=== PATIENT | female | born 1950 | race Caucasian/White ===

== ENCOUNTER 2024-05-11 11:00 | Inpatient (IN) | payer MEDICARE, SELFPAY ==
[2024-05-11] VITALS (21 sets, daily range): BP systolic 121–143; BP diastolic 53–112; PULSE 83–145; RESP 15–23; TEMP 36.4–36.6; O2SAT 96–100; BMI 28.4
--- NOTE | ~2024-05-11 | US_ITS ---
EXAMINATION: US thyroid DATE: 05/12/2024 19:01 INDICATION: Multinodular goiter. TECHNIQUE: Multiple ultrasound images of the thyroid were obtained. COMPARISON: Cervical spine CT 05/11/2024 FINDINGS: The right thyroid lobe measures 4.1 x 2.0 x 1.9 cm. The left thyroid lobe measures 3.7 x 1.6 x 1.9 c m. In the right thyroid lobe, there is a 19 mm solid, hypoechoic, wider than tall nodule with ill-de fined margin without echogenic foci (TI-RADS TR4). In the left thyroid lobe, there is a 3 mm nodule. IMPRESSION: 1. Multinodular goiter. The portion of the goiter in the mediastinum seen on CT is not visible by ult rasound. Consider ultrasound-guided fine-needle aspiration of the 19 mm right thyroid nodule. Reviewed, dictated and finalized at location B. IMPRESSION: 1. Multinodular goiter. The portion of the goiter in the mediastinum seen on CT is not visible by ultrasound. Consider ultrasound-guided fine-needle aspiratio n of the 19 mm right thyroid nodule.
--- NOTE | ~2024-05-11 | CT_ITS ---
EXAMINATION: CT cervical spine wo con DATE: 05/11/2024 12:03 INDICATION: Neck injury. Fall. TECHNIQUE: Computed tomography (CT) of the cervical spine was performed without intravenous contrast. Automated exposure control and iterative reconstruction technique were employed. The dose-length pro duct was 265.07 mGy-cm. COMPARISON: None FINDINGS: There is a multinodular goiter extending into the superior mediastinum. There is 4 degrees dextrocurvature of cervical spine. Vertebral body heights are normal. There is severely decreased dis c height at C5-C6 and moderately decreased disc height at C6-C7 and C7-T1. The following disc levels are specifically discussed: C2-C3: There is mild bilateral uncovertebral joint osteoarthritis. There is mild bilateral facet join t osteoarthritis. There is no neural foraminal stenosis. There is no central canal stenosis. C3-C4: There is mild right and moderate left uncovertebral joint osteoarthritis. There is mild bilate ral facet joint osteoarthritis. There is mild left neural foraminal stenosis. There is mild central c anal stenosis. C4-C5: There is no uncovertebral joint osteoarthritis. There is no facet joint osteoarthritis. There is no neural foraminal stenosis. There is no central canal stenosis. C5-C6: There is moderate right and severe left uncovertebral joint osteoarthritis. There is mild bila teral facet joint osteoarthritis. There is mild left neural foraminal stenosis. There is mild central canal stenosis. C6-C7: There is severe bilateral uncovertebral joint osteoarthritis. There is mild right and severe l eft facet joint osteoarthritis. There is mild left neural foraminal stenosis. There is mild central c anal stenosis. C7-T1: There is no uncovertebral joint osteoarthritis. There is severe bilateral facet joint osteoart hritis. There is no neural foraminal stenosis. There is no central canal stenosis. IMPRESSION: 1. No fracture. 2. Severe cervical spondylosis. 3. Multinodular goiter extending into the mediastinum. Reviewed, dictated and finalized at location A. UREMENT SPECIALIST
--- NOTE | ~2024-05-11 | CT_ITS ---
CT head without contrast Indication: Status post fall, head injury COMPARISON: 05/11/2024 Technique: Serial scans were obtained through the brain without the administration of contrast. Dose reduction technique was used on this scan by utilizing automated exposure control and iterative recon struction technique. The dose-length product (DLP) was 605.33 mGy-cm. Findings: There is no evidence of intracranial hemorrhage, mass lesion, or acute infarct. The ventri cles and subarachnoid spaces are dilated, consistent with mild to moderate atrophy. Low attenuation regions are seen within the periventricular white matter bilaterally, likely representing changes fro m chronic microvascular ischemic disease. There is no evidence of edema, mass effect or midline shif t. The visualized paranasal sinuses and mastoid air cells are clear. Impression: No intracranial hemorrhage, mass, or acute infarct. Atrophy and chronic white matter changes, as above. Reviewed, dictated and finalized at location . Impression: No intracranial hemorrhage, mass, or acute infarct. Atrophy and chronic white matter changes, as above.
--- NOTE | ~2024-05-11 | XR_ITS ---
EXAMINATION: XR chest 1V portable DATE: 05/11/2024 11:37 INDICATION: Weakness. TECHNIQUE: A single frontal view of the chest was obtained. COMPARISON: None. FINDINGS: There is no pneumonia, pleural effusion, or pneumothorax. The heart size is normal. There i s widening of the superior mediastinum. Surgical clips in the right upper quadrant are likely from ch olecystectomy. IMPRESSION: 1. Widening of the superior mediastinum, which may be seen with lipomatosis or a tortuous aorta. Aggie gnancy is not excluded. Chest CT is recommended if this area is not included on the pending cervical spine CT. Reviewed, dictated and finalized at location A. UCTION PLANNER SCHEDULER IMPRESSION: 1. Widening of the superior mediastinum, which may be seen with lipomatosis or a tortuous aorta. Malignancy is not excluded. Chest CT is recommended if this a kristin is not included on the pending cervical spine CT.
--- NOTE | ~2024-05-11 | CT_ITS ---
EXAMINATION: CT brain wo con DATE: 05/11/2024 12:04 INDICATION: Confusion. TECHNIQUE: Computed tomography (CT) of the head was performed without intravenous contrast. The mA wa s adjusted according to patient size. Iterative reconstruction technique was employed. The dose-lengt h product was 605.33 mGy-cm. COMPARISON: None FINDINGS: There are scattered areas of low attenuation in the cerebral white matter, which is within normal limits for the patient's age. There is no intracranial hemorrhage, acute infarction, or abnorm al intracranial mass lesion. The ventricles are normal in size. There is mild mucosal thickening in t he paranasal sinuses. There are likely changes of ocular lens replacement surgeries. The mastoid air cells are normal. IMPRESSION: 1. Normal aging brain. Reviewed, dictated and finalized at location A. SPERSON SHOES IMPRESSION: 1. Normal aging brain.
--- NOTE | ~2024-05-11 | CT_ITS ---
CLINICAL INDICATION: Tachypnea and acidosis COMPARISON: 05/11/2024. TECHNIQUE: Multiple contiguous axial images of the chest, abdomen and pelvis were performed without t he administration of intravenous contrast The dose-length product (DLP) was 1560.51 mGy-cm. Automated exposure control and iterative reconstruction technique were employed. FINDINGS/OBSERVATIONS: Redemonstration of abnormal retrosternal thyroid gland. Significant volume loss within the bilateral lung blair. Small right-sided pleural effusion is now identified. Persistent elevation of the right hemidiaphragm. Free fluid is identified surrounding the liver, an interval change from prior. In addition to free fluid, there is also a copious amount of free air within the anterior portion of the abdomen, extending into the pelvis as well as within the mesentery. No free air is identified wit hin the superior mesenteric vein, portal vein or liver. Free fluid within the abdomen extending along the right paracolic gutter and into the right hemipelvi s. Inflammatory change is identified within the duodenum with fatty atrophy of the pancreas, unchanged f rom prior. No significant retroperitoneal air is identified, or air within the lesser sac. However, there is moderate inflammatory change surrounding the mesentery of the proximal jejunum, jus t beyond the ligament of Treitz and extending towards the anterior abdominal wall with adjacent free air, possibly the source of perforation. Distal small bowel is decompressed. Fecal stasis within the colon extending into the rectum without significant inflammatory change. Redemonstration of multiple nonobstructing renal calculi. The inferior vena cava is slit like consistent with severe hypovolemia. IMPRESSION: Free air and free fluid within the abdomen and pelvis, for which an enteric perforation is suspected (as detailed above). Additional findings consistent with severe hypovolemia. These findings were discussed with Dr. Diaz at 5: 20 PM on 05/13/2024. Reviewed, dictated and finalized at location A. IMPRESSION: Free air and free fluid within the abdomen and pelvis, for which an enteric per foration is suspected (as detailed above). Additional findings consistent with severe hypovolemia. These findings were discussed with Dr. Diaz at 5: 20 PM on 05/13/2024.
--- NOTE | ~2024-05-11 | XR_ITS ---
AP view of the pelvis and AP and lateral views of the bilateral hips Clinical history: Pain Findings: There is an acute intertrochanteric fracture of the proximal right femur with increased luis us reticulation the major distal fracture fragment. No left hip fracture seen. There is advanced dege nerative change of the right hip joint. There is minimal degenerative change of the left hip joint. S oft tissues are unremarkable. Impression: Acute intertrochanteric fracture of the proximal right femur, as detailed above. Advanced degenerative change of the right hip joint. Reviewed, dictated and finalized at location M. Impression: Acute intertrochanteric fracture of the proximal right femur, as detailed above . Advanced degenerative change of the right hip joint.
--- NOTE | ~2024-05-11 | XR_ITS ---
EXAMINATION: XR chest port-a-cath/central Exam Date/Time: 05/13/2024 18:00 CDT HISTORY: central line placement Comparison: Same date at 6:03 PM; CT cap 05/13/2024. FINDINGS/IMPRESSION: New left subclavian central line terminating at the confluence of the brachiocephalic vein and SVC. No other significant interval change. Endotracheal tube remains low lying, terminating 2.2 cm above the le. Reviewed, dictated and finalized at location K.
--- NOTE | ~2024-05-11 | XR_ITS ---
EXAMINATION: XR chest ET placement Exam Date/Time: 05/13/2024 18:15 CDT HISTORY: intubation Comparison: Same date at 3:35 PM. RESULT: Lines, tubes, and devices: New endotracheal tube, terminating 1.5 cm above the le. Lungs and pleura: Low volumes, otherwise clear. Cardiomediastinal silhouette: Stable. Other: No acute osseous or upper abdominal finding. IMPRESSION: Endotracheal tube terminates 1.5 cm above the le, consider retraction. Reviewed, dictated and finalized at location K.
--- NOTE | ~2024-05-11 | CT_ITS ---
EXAMINATION: CT chest abdomen pelvis wo con DATE: 05/11/2024 12:04 INDICATION: Chest and abdominal injury. Fall. Abnormal chest radiograph. TECHNIQUE: Computed tomography (CT) of the chest, abdomen, and pelvis was performed without intraveno us contrast. Automated exposure control and iterative reconstruction technique were employed. The dos e-length product was 1227.54 mGy-cm. COMPARISON: CT abdomen and pelvis 05/04/2024 FINDINGS: CHEST CT: The lungs demonstrate mild atelectasis. There is a 4 mm nodule in right lower lobe, likely benign. Th ere is a 3 mm nodule left upper lobe, likely benign. No pleural effusion. There is a multinodular goi ter extending into the mediastinum with largest nodule measuring 3.4 cm. The heart size is normal. Th ere are coronary artery calcifications. No pericardial effusion. There are old healed right rib fract ures. There is severe cervical and thoracic spondylosis. ABDOMEN/PELVIS CT: The liver is normal. There are changes of cholecystectomy. Calcifications in the spleen are consisten t with old granulomatous disease. The pancreas and adrenal glands are normal. There are least 8 stone s in the right kidney and right renal pelvis measuring up to 13 mm. There is a 3.8 cm cyst in left ki dney. There is a 4 mm stone in left kidney. There is an umbilical hernia containing fat. There is a F oley catheter in expected position. There are no dilated loops of bowel. The appendix is normal. Ther e are no dilated loops of bowel. There are no pathologically enlarged lymph nodes. There is no free i ntraperitoneal fluid. There is subcutaneous fat stranding posterior to the proximal femora, consisten t with inflammation. There is severe lumbar spondylosis. IMPRESSION: 1. Multinodular goiter extending into the mediastinum correlating with the chest radiograph abnormali ty. 2. Bilateral nonobstructing kidney stones. Reviewed, dictated and finalized at location A. AGE BABYSITTER IMPRESSION: 1. Multinodular goiter extending into the mediastinum correlating with the ches t radiograph abnormality. 2. Bilateral nonobstructing kidney stones.
--- NOTE | ~2024-05-11 | XR_ITS ---
EXAMINATION: XR chest 1V portable Exam Date/Time: 05/13/2024 15:35 CDT HISTORY: INCREASED SOB Comparison: 05/11/2024. RESULT: Lines, tubes, and devices: None. Lungs and pleura: Increased volume loss in the right lung with right hemidiaphragm elevation and bib asilar linear opacities. The left lung is clear. Cardiomediastinal silhouette: Stable widening and increased upper mediastinal density previously det ermined to be related to thyroid goiter. Other: No acute osseous or upper abdominal finding. IMPRESSION: Right lung volume loss and basilar atelectasis. Reviewed, dictated and finalized at location K.
--- NOTE | 2024-05-11 11:12 | ECG_ITS ---
Test Date: 2024-05-11 11:28:[address] Rate: 142 P: 46 NV: 141 QRS: -37 QRSD: 71 T: 81 QT: 280 QTc: 431 Interpretive Statements SINUS TACHYCARDIA WITH OCCASIONAL VENTRICULAR PREMATURE COMPLEXES, MARKED LEFT AXIS DEVIATION [QRS AXIS < -30] PATTERN CONSISTENT WITH PULMONARY DISEASE MINIMAL ST DEPRESSION [0.025+ mV ST DEPRESSION] ABNORMAL ECG No previous ECG available for comparison Electronically Signed On 05-11-2024 15:59:20 [employer] by Kenn George M.D.
[2024-05-11 11:21] LABS: Glucose Point of Care 212 mg/dl (65-105)
--- OUTSIDE RECORDS SUMMARY | 2024-05-11 11:24 | XMS_ITS | Referral Summary ---
Author Organization [facility] Address [address] [place] [address] Care Team Providers Care Quality Consultant Name Role Phone Javi Arce MD Primary Care Provider Allergies Active Allergy Reactions Criticality Noted Date Comments Acetaminophen Meloxicam Other (See comments) Low 03/14/2017 ulcers Propoxyphene Sulfa (Sulfonamide Antibiotics) Rash Medium 11/05 Medications phenylephrine (SUDAFED PE) 10 mg tablet take 1 at bedtime 0 0 5 Active blood glucose diagnostic (FREESTYLE INSULINX TEST STRIPS) strip use to check sugars once a day 50 strip 6 5 Active aspirin (ENTERIC COATED ASPIRIN) 81 mg tablet Take one by mouth one time per day 0 0 8 Active vitamins A,C,E-zinc-adolfo er (PRESERVISION AREDS) [id number] fevk-ad-xgxk capsule Take according to yfov-yzi-nawzla r package directions 0 0 8 Active multivitamin tablet tablet Take according to kcfx-uml-ugrovp r package directions 0 0 8 Active lisinopriL (PRINIVIL,ZESTR IL) 10 mg tablet Take 1 tablet (10 mg total) by mouth daily 90 tablet 2 0 Active omeprazole (PriLOSEC) 20 mg capsule Take 1 capsule by mouth once daily 30 capsule 1 Active potassium chloride ER 20 mEq CR tablet Take 1 tablet by mouth once daily 30 tablet 1 Active atorvastatin (LIPITOR) 40 mg tablet Take 1 tablet by mouth once daily 30 tablet 1 Active glimepiride (AMARYL) 4 mg tablet Take 1 tablet (4 mg total) by mouth 2 (two) times a day 180 tablet 2 1 Active metFORMIN XR (GLUCOPHAGE XR) 500 mg 24 hr tabletIndicatio ns:Type 2 diabetes mellitus with hyperglycemia, without long-term current use of insulin (HCC) Take 2 tablets by mouth twice daily 120 tablet 1 Active traMADoL (ULTRAM) 50 mg tablet Take 1 tablet (50 mg total) by mouth every 6 (six) hours as needed for pain 60 tablet 1 Active furosemide (LASIX) 20 mg tablet Take 1 tablet by mouth once daily 90 tablet 2 Active Active Problems Problem Noted Date Diagnosed Date Hyperlipidemia due to type 2 diabetes mellitus 0 09/19/2017 Assessment & Plan (11/26/2020 3:44 PM CDT): LDL and non HDL at goal Continue with Lipitor Assessment & Plan (07/16/2020 4:47 PM CDT): Goal of treatment , LDL cholesterol less than 100 ( less than 70 in patients with history of heart attacks and / or strokes ) NonHDL cholesterol ( total cholesterol minus HDL cholesterol ) goal less than 130 ( less than 100 in patients with history of heart attacks and / or strokes ) Low cholesterol, low fat diet was discussed and advised. Daily exercise On statin therapy with Atorvastatin Assessment & Plan (03/19/2020 2:33 PM M[employer] CRE[employer]BER): Goal of treatment , LDL cholesterol less than 100 ( less than 70 in patients with history of heart attacks and / or strokes ) NonHDL cholesterol ( total cholesterol minus HDL cholesterol ) goal less than 130 ( less than 100 in patients with history of heart attacks and / or strokes ) Low cholesterol, low fat diet was discussed and advised. Daily exercise On statin therapy with Lipitor Assessment & Plan (12/05/2019 4:56 PM CDT): Goal of treatment , LDL cholesterol less than 100 ( less than 70 in patients with history of heart attacks and / or strokes ) NonHDL cholesterol ( total cholesterol minus HDL cholesterol ) goal less than 130 ( less than 100 in patients with history of heart attacks and / or strokes ) Low cholesterol, low fat diet was discussed and advised. Daily exercise On statin therapy with Lipitor Assessment & Plan (08/29/2019 4:18 PM CDT): Goal of treatment , LDL cholesterol less than 100 ( less than 70 in patients with history of heart attacks and / or strokes ) NonHDL cholesterol ( total cholesterol minus HDL cholesterol ) goal less than 130 ( less than 100 in patients with history of heart attacks and / or strokes ) Low cholesterol, low fat diet was discussed and advised. Daily exercise On statin therapy Lipids checked today Assessment & Plan (05/22/2018 3:17 PM CDT): Goal of treatment , LDL cholesterol less than 100 ( less than 70 in patients with history of heart attacks and / or strokes ) NonHDL cholesterol ( total cholesterol minus HDL cholesterol ) goal less than 130 ( less than 100 in patients with history of heart attacks and / or strokes ) Low cholesterol, low fat diet was discussed and advised. Daily exercise On statin therapy Assessment & Plan (01/23/2018 2:34 PM M[employer] CRE[employer]BER): Goal of treatment , LDL cholesterol less than 100 ( less than 70 in patients with history of heart attacks and / or strokes ) NonHDL cholesterol ( total cholesterol minus HDL cholesterol ) goal less than 130 ( less than 100 in patients with history of heart attacks and / or strokes ) Low cholesterol, low fat diet was discussed and advised. Daily exercise On statin therapy Assessment & Plan (09/19/2017 11:12 AM CDT): Goal of treatment , LDL cholesterol less than 100 ( less than 70 in patients with history of heart attacks and / or strokes ) NonHDL cholesterol ( total cholesterol minus HDL cholesterol ) goal less than 130 ( less than 100 in patients with history of heart attacks and / or strokes ) Low cholesterol, low fat diet was discussed and advised. Daily exercise On statin therapy Type 2 diabetes mellitus wit h hyperglycemia, without long-term current use of insulin 04/30/2013 Overview (06/10/2016): DMII WO CMP UNCNTRLD Assessment & Plan (11/26/2020 3:43 PM CDT): Hba1c was Lab Results Component Value Date HGBA1C 7.3 11/26/2020 today, indicating DM control Goal Hba1c and blood glucose explained Diet and exercise , discussed Prevention and treatment of hyypoglcyemia discussed. Blood glucose monitoring : 1-2 Adjustment to oral medications: Stop Tradjenta and Jardiance Keep working on diet and exercise , Assessment & Plan (07/16/2020 4:46 PM CDT): Hba1c was Lab Results Component Value Date HGBA1C 7.6 07/16/2020 today, indicating suboptimal DM control Goals blood sugars of 120-160 and Hba1c under 7 % was explained. 1800 calorie, consistent carb diet recommended, no more than 3-45 grams of carbs per meal, avoiding concentrated sweet drinks and rapid absorption carbs. 25-45 min daily aerobic and resistance exercise recommended Prevention and treatment of hyypoglcyemia discussed. Blood glucose monitoring with fingers sticks. Continue current regimen with oral agents Assessment & Plan (03/19/2020 2:35 PM [employer]): Hba1c was Lab Results Component Value Date HGBA1C 7.4 03/19/2020 today, indicating suboptimal DM control Goals blood sugars of 120-160 and Hba1c under 7 % was explained. 1800 calorie, consistent carb diet recommended, no more than 3-45 grams of carbs per meal, avoiding concentrated sweet drinks and rapid absorption carbs. 25-45 min daily aerobic and resistance exercise recommended Prevention and treatment of hyypoglcyemia discussed. Blood glucose monitoring with fingers sticks. Assessment & Plan (12/05/2019 4:55 PM CDT): Hba1c was Lab Results Component Value Date HGBA1C 7.9 12/05/2019 today, indicating inadequate DM control 1800 calorie, consistent carb diet recommended. No more than 30-45 grams of carbs per meal recommended, as well as avoiding high concentrated sweet drinks . 25-45 min daily exercise, combining both aerobic and resistance exercise recommended. The need to monitor blood glucose Prevention and treatment of hyypoglcyemia discussed. Encouraged to start the jardiance, due to benefit effects on kidney and heart Assessment & Plan (08/29/2019 4:18 PM CDT): Hba1c was Lab Results Component Value Date HGBA1C 8.4 08/29/2019 today, indicating DM control 1800 calorie, consistent carb diet recommended, no more than 3-45 grams of carbs per meal, avoiding concentrated sweet drinks and rapid absorption carbs. 25-45 min daily aerobic and resistance exercise recommended Prevention and treatment of hyypoglcyemia discussed. Blood glucose monitoring with fingers sticks.... Medicationn: continue current Add Jardiance Assessment & Plan (11/27/2018 3:52 PM CDT): Hba1c was Lab Results Component Value Date HGBA1C 6.9 11/27/2018 today, indicating adequate DM control 1800 calorie, consistent carb diet recommended, no more than 3-45 grams of carbs per meal, avoiding concentrated sweet drinks and rapid absorption carbs. 25-45 min daily aerobic and resistance exercise recommended Prevention and treatment of hyypoglcyemia discussed. Blood glucose monitoring with fingers sticks Medications: Continue current orals. Assessment & Plan (05/22/2018 3:23 PM CDT): Hba1c was Lab Results Component Value Date HGBA1C 7.1 05/22/2018 today, indicating adequate DM control 1800 calorie, consistent carb diet recommended 25-45 min daily aerobic and resistance exercise recommended Prevention and treatment of hyypoglcyemia discussed. Blood glucose monitoring with fingers sticks 1-2 x day . Oral medications: continue Tradjenta, Amaryl , Metformin Assessment & Plan (01/23/2018 2:32 PM [employer]): Hba1c was Lab Results Component Value Date HGBA1C 7.6 01/23/2018 today, indicating adequate DM control 1800 calorie, consistent carb diet recommended 25-45 min daily aerobic and resistance exercise recommended Prevention and treatment of hyypoglcyemia discussed. Blood glucose monitoring with fingers sticks 1-2 x day . Oral medications: stay on Metformin - Glimepiride Assessment & Plan (09/19/2017 11:12 AM CDT): Your Hba1c today was: Lab Results Component Value Date HGBA1C 7.7 09/19/2017 meaning a 3 month average sugar of : Your goal hba1c is under 7.0 to prevent nursing home diabetes complications ( eye , kidney and nerve damage ) . Your goal sugars are in the 90-130 range Daily aerobic ( walking, riding a bike, swimming ) and resistance exercises ( light weight lifting, resistance band stretching ) for at least 30 minutes is recommended If you can not walk, chair exercises is very acceptable. As little as 15-20 minutes exercise , in one or two sessions a day, is still very helpful and will help to improve your diabetes control . Eat small portion meals, no more than 1800 calories Diet Try to eat not more than than 2-3 servings of carbs ( starches ) wiith your meals. Avoid soft drinks, including regular sodas , fruit juices and sweetened tea. Drink water instead. Eat plenty of green and leafy vegetables, including salads. Take your medications regularly. . Monitor your sugar levels with finger sticks regularly and keep a log sheet or book. Bring your sugar meter and /or a log book or log sheet to every office visit. Take metformin 2 tab am and 1 tab pm Assessment & Plan (03/14/2017 10:33 AM M[employer]): Hba1c was 7.6 today, indicating inadequate DM control 1800 calorie, consistent carb diet recommended 30 min daily aerobic and resistance exercise recommended Prevention and treatment of hyypoglcyemia discussed. Blood glucose monitoring with fingers sticks 1-2 x day . Foot care was discussed. Assessment & Plan (09/27/2016 12:54 PM CDT): Hba1c was today, indicating adequate DM control 1800 calorie, consistent carb diet recommended 30 min daily aerobic and resistance exercise recommended Foot care discused. Prevention and treatment of hyypoglcyemia discussed. Pure hypercholesterolemia 11/01/2012 Overview (06/10/2016): PURE HYPERCHOLESTEROLEM Assessment & Plan (03/14/2017 10:31 AM [employer]): Goal of treatment , LDL cholesterol less than 100 ( less than 70 in patients with history of heart attacks and / or strokes ) NonHDL cholesterol goal less than 130 ( less than 100 in patients with history of heart attacks and / or strokes ) Continue statin therapy Assessment & Plan (09/27/2016 12:54 PM CDT): Goal of treatment , LDL cholesterol less than 100 ( less than 70 in patients with history of heart attacks and / or strokes ) NonHDL cholesterol goal less than 130 / 100 Lipids at goal. Continue statin therapy Low cholesterol diet, exercise advised. Hypertension associated with diabetes 11/01/2012 Overview (06/10/2016): HYPERTENSION NOS Assessment & Plan (11/26/2020 3:44 PM CDT): Diet and exercise Continue with Lisinopril Assessment & Plan (07/16/2020 4:47 PM CDT): Goal blood pressure is less than 140/85 Low salt diet was discussed andd recommended The importance of daily aerobic exercise was also emphasized. Continue current meds, including MARIANNE-I or ARB, e.g. Lisinopril Assessment & Plan (03/19/2020 2:35 PM [employer]): Goal blood pressure is less than 140/85 Low salt diet was discussed andd recommended The importance of daily aerobic exercise was also emphasized. Continue current meds, including MARIANNE-I or ARB, e.g. Lisinopril Assessment & Plan (12/05/2019 4:57 PM CDT): Goal blood pressure is less than 140/85 Low salt diet was discussed andd recommended The importance of daily aerobic exercise was also emphasized. Continue current meds, including MARIANNE-I or ARB, e.g. Check microalbumin Assessment & Plan (08/29/2019 4:18 PM CDT): Goal blood pressure is less than 140/85 Low salt diet recommended Daily aerobic exercise Continue current meds, including MARIANNE-I or ARB Check microalbumin Assessment & Plan (05/22/2018 3:16 PM CDT): Goal blood pressure is less than 140/85 Low salt diet recommended Daily aerobic exercise Continue current meds, including MARIANNE-I or ARB Assessment & Plan (01/23/2018 2:34 PM [employer]BER): Goal blood pressure is less than 140/85 Low salt diet recommended Daily aerobic exercise Continue current meds, including MARIANNE-I or ARB Assessment & Plan (09/19/2017 11:13 AM CDT): Goal blood pressure is less than 140/85 Low salt diet recommended Daily aerobic exercise Continue current meds, including MARIANNE-I or ARB Assessment & Plan (03/14/2017 10:31 AM M[employer]BER): Goal blood pressure is less than 140/85 Low salt diet recommended Daily aerobic exercise Continue current meds, including MARIANNE-I or ARB Check microalbumin Assessment & Plan (09/27/2016 12:53 PM CDT): Goal blood pressure is less than 140/85 Low salt diet recommended Daily aerobic exercise Continue current meds, including MARIANNE-I or ARB Social History Tobacco Use Types Packs/Day Years Used Date Smoking Tobacco: Never Smokeless Tobacco: Never Alcohol Use Standard Drinks/Week Comments No 0 (1 standard drink = 0.6 oz pur e alcohol) PHQ-2 Answer Date Recorded PHQ-2 Total Score (If total score is 3 or more points, staff should administer the PHQ-9) 0 11/26/2020 Comments Unknown Sex and Gender Information Value Date Recorded Sex Assigned at Not on file Legal Sex Female 10:35 AM M[employer] Gender Identity Not on file Sexual Orientation Not on file Last Filed Vital Signs Vital Sign Reading Time Taken Comments Blood Pressure 102/60 11/26/2020 3:10 PM CDT Pulse 107 11/26/2020 3:10 PM CDT Temperature - - Respiratory Rate 14 11/26/2020 3:10 PM CDT Oxygen Saturation - - Inhaled Oxygen Concentration - - Weight 92.1 kg (203 lb) 11/26/2020 3:10 PM CDT Height 162.6 cm (5' 4.02 ) 11/26/2020 3:10 PM CD T Body Mass Index 34.83 11/26/2020 3:10 PM CDT Plan of Treatment Not on file Insurance [facility] MDCR HMO REF Care Teams Quality Consultant Relationship Specialty Start Date End Date Javi Arce MD [address] [facility] [address] [place] [address] PCP - General Internal Medicine 03/19/20
--- OUTSIDE RECORDS SUMMARY | 2024-05-11 11:24 | XMS_ITS | Clinical Summary ---
Author Organization [facility] [place] [facility] Address [address] [place] [address] Care Team Providers Care [facility] Psychiatrist Name Role Phone Javi Arce MD Primary [...] 8 Active vitamins A,C,E-zinc-adolfo er (PRESERVISION AREDS) [id number] jxrw-wg-yemv capsule Take according to azeq-zbj-ylqprq r package directions 0 0 8 Active multivitamin tablet tablet Take according to kzdh-qcp-azywwu r package directions 0 0 8 Active [...] Atorvastatin Assessment & Plan (03/19/2020 2:33 PM PROFESSOR OF ENGINEERING): Goal of treatment , LDL cholesterol less [...] therapy Assessment & Plan (01/23/2018 2:34 PM PROFESSOR OF ENGINEERING): Goal of treatment , LDL cholesterol less [...] agents Assessment & Plan (03/19/2020 2:35 PM PROFESSOR OF ENGINEERING): Hba1c was Lab Results Component Value Date [...] Metformin Assessment & Plan (01/23/2018 2:32 PM PROFESSOR OF ENGINEERING): Hba1c was Lab Results Component Value Date [...] goal hba1c is under 7.0 to prevent group home diabetes complications ( eye , kidney [...] pm Assessment & Plan (03/14/2017 10:33 AM PROFESSOR OF ENGINEERING): Hba1c was 7.6 today, indicating inadequate DM [...] HYPERCHOLESTEROLEM Assessment & Plan (03/14/2017 10:31 AM PROFESSOR OF ENGINEERING): Goal of treatment , LDL cholesterol less [...] Lisinopril Assessment & Plan (03/19/2020 2:35 PM PROFESSOR OF ENGINEERING): Goal blood pressure is less than 140/85 [...] ARB Assessment & Plan (01/23/2018 2:34 PM PROFESSOR OF ENGINEERING): Goal blood pressure is less than 140/85 Low salt diet recommended Daily aerobic exercise Continue current meds, including MARIANNE-I or ARB Assessment & Plan (09/19/2017 11:13 AM CDT): Goal blood pressure is less than 140/85 Low salt diet recommended Daily aerobic exercise Continue current meds, including MARIANNE-I or ARB Assessment & Plan (03/14/2017 10:31 AM PROFESSOR OF ENGINEERING): Goal blood pressure is less than 140/85 Low salt diet recommended Daily aerobic exercise Continue current meds, including MARIANNE-I or ARB Check microalbumin Assessment & Plan (09/27/2016 12:53 PM CDT): Goal blood pressure is less than 140/85 Low salt diet recommended Daily aerobic exercise Continue current meds, including MARIANNE-I or ARB Surgical History Surgery Date Site/Laterality Comments MYOMECTOMY Myomectomy HERNIA REPAIR Hernia repair CHOLECYSTECTOMY 2004 Cholecystectomy KIDNEY STONE SURGERY 2011 kidney stones removed Medical History Medical History Date Comments Hypertension Hypertension Diabetes mellitus (HCC) Diabetes Hx Other Medical Not Claustropho bic; Comments: GF 10/29/2013 - Family History Medical History Relation Name Comments Coronary artery disease Other 1 Fami ly history of Coronary artery disease; Ovarian cancer Other 2 Family histor y of Cancer -ovarian; Diabetes type II Other 3 Family hist ory of Diabetes -Type II; Hypertension Other 4 Family history of Hypertension; Other Other 5 Family history of Cancer, brain; Relation Name Status Comments Other 1 Other 2 Other 3 Other 4 Other 5 Social History Tobacco Use Types Packs/Day Years [...] on file Legal Sex Female 10:35 AM PROFESSOR OF ENGINEERING Gender Identity Not on file Sexual Orientation Not on file Obstetrics History Last Filed Vital Signs Vital Sign Reading [...] Plan of Treatment Not on file Insurance [facility] MDCR HMO REF Care Teams Correctional Facility Psychiatrist Relationship Specialty Start Date End Date Javi Arce MD [address] [facility] [place] [address] PCP - General Internal Medicine 03/19/20
--- OUTSIDE RECORDS SUMMARY | 2024-05-11 11:24 | XMS_ITS | Clinical Summary ---
Author Organization [facility] Address [address] [place] [address] Phone Care Team Providers Care Dub Room Engineer Name Role Phone Javi Arce MD Primary Care Provider [phone] Allergies No known active allergies Medications METFORMIN HCL (METFORMIN ORAL) Take 1,000 mg by mouth 2 times daily. Active HYDROCHLOROTHIAZ AUGUSTUS ORAL Take 25 mg by mouth. Active ATORVASTATIN CALCIUM (LIPITOR ORAL) Take 20 mg by mouth. Active MULTIVITAMINS WITH FLUORIDE (MULTI-VITAMIN ORAL) Take by mouth. Active aspirin (NELSON) 81 mg Oral Tab Take by mouth. Active MELOXICAM ORAL Take by mouth. Active LINAGLIPTIN (TRADJENTA ORAL) Take by mouth. Active GLIMEPIRIDE ORAL Take 5 mg by mouth. Active loratadine (CLARITIN) 10 mg tablet Take 10 mg by mouth daily. Active TRAMADOL HCL (ULTRAM ER ORAL) Take by mouth. Active LISINOPRIL ORAL Take by mouth. Active Active Problems Patient Care Coordination No te Formatting of this note migh t be different from the original. Primary Care: Javi Arce MD (General) Referring Provider: Kika Lockhart MD [id number] [facility] [address] [place] [address] Other: Dr Haley Christensen Problem Noted Date Diagnosed Date Family history of breast cancer 09/01/2015 Diffuse cystic mastopathy 09/01/2015 Encounter for screening mammogram for high-risk patient 09/01/2015 Diabetes Osteoarthritis HTN (hypertension) Arthritis Kidney stones Anemia Family History Medical History Relation Name Comments Cancer Brother brain cancer Breast Cancer Maternal Aunt Lung Cancer Maternal Uncle 1 Cancer Maternal Uncle 2 bladder Ovarian Cancer Mother Uterine Cancer Neg Hx Relation Name Status Comments Brother Maternal Aunt Maternal Uncle 1 Maternal Uncle 2 Mother Social History Tobacco Use Types Packs/Day Years Used Date Smoking Tobacco: Never Smokeless Tobacco: Never Tobacco Cessation:Counseling Given: No Alcohol Use Standard Drinks/Week Comments Yes 0 (1 standard drink = 0.6 oz pur e alcohol) rarely Comments No Sex and Gender Information Value Date Recorded Sex Assigned at Not on file 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 Gender Identity Not on file Sexual Orientation Not on file Occupation Industry Job Start Date Job End Date Not on file Not on file Not on file Not on file Last Filed Vital Signs Vital Sign Reading Time Taken Comments Blood Pressure 118/67 09/29/2014 1:40 PM CDT Pulse 91 09/29/2014 1:40 PM CDT Temperature - - Respiratory Rate - - Oxygen Saturation - - Inhaled Oxygen Concentration - - Weight 99.3 kg (219 lb) 09/29/2014 1:40 PM CDT Height 162.6 cm (5' 4 ) 09/29/2014 1:40 PM CDT Body Mass Index 37.59 09/29/2014 1:40 PM CDT Plan of Treatment Health Maintenance Due Date Last Done Comments DIABETES ANNUAL RETINAL EXAM 05/24/1967 DIABETES MICROALBUMIN ANNUAL SCREEN 05/24/1967 LDL CHOLESTEROL ANNUAL 05/24/1967 DTAP/TDAP/TD VACCINES (1 - Tdap) 1968 PNEUMOCOCCAL VACCINE 50+ YEA RS (1 of 2 - PCV) 1968 COLORECTAL SCREENING 1994 Colorectal Cancer Screening 1994 FIT-DNA Q 3 years 1994 FIT/FOBT Q 1 year 1994 Flex Sig/CT Colonography Q 5 years 1994 ZOSTER VACCINE (1 of 2) 05/24/1999 DIABETES HBA1C Q 6 MONTHS 05/26/2021 11/26/2020 DIABETES ANNUAL FOOT EXAM 07/16/2021 07/16/2020 BREAST CANCER SCREENING 07/08/2023 07/08/19, 09/29/2014, 06/03/2013, Additional history exists INFLUENZA VACCINE (#1) 2023 RSV VACCINE (60+ or ) (1 - 1-dose 75+ series) 2024 OSTEOPOROSIS SCREENING Completed 07/07/2022 Procedures Procedure Name Priority Date/Time Associated Diagnosis Comments XR DEXA BONE DENSITY AXIAL 1 OR MORE SITES Routine 07/07/2022 2:03 PM CDT Age-related osteoporosis without current pathological fracture MAMMO 3D WICHO SCREEN BILAT W OR WO CAD Routine 07/07/2022 1:04 PM CDT Breast cancer screening by mammogram from Last 3 Months or Most Recently Relevant to Health Maintenance Results * XR DEXA BONE DENSITY AXIAL 1 OR MORE SITES (07/07/2022 2:03 PM CDT) Anatomical Region Laterality Modality Computed Radiogr aphy 07/07/2022 2:03 PM CDT Narrative 07/08/2022 7:32 AM CDT XR DEXA BONE DENSITY AXIAL 1 OR MORE SITES DATE: 07/07/2022 2:03 PM HISTORY: 72 years old Female with post menopausal symptoms. PROCEDURE: Planar images of the lumbar spine, forearm and hip(s) using a [employer] DEXA scanner for bone mineral density determination (BMD). Absolute bone mineral density measurements (in gm/cm^2) are available on the original PACS report. FINDINGS: Lumbar Spine (L1-L4) T-score: 0.8 Left femoral neck T-score: -1.9 Right femoral neck T-score: -2.7 Left Radius 33% T-score: -1.4 Comments: None IMPRESSION Osteoporotic bone mineral density. DEFINITIONS: Normal: T-score above -1.0 Osteopenia T-score less than -1.0 and above -2.5 Osteoporosis: T-score < -2.5 FRAX FRACTURE RISK ASSESSMENT: Risk factors: History of fracture and secondary osteoporosis 10 Year Probability Of Fracture -Major Osteoporotic: 20.4% -Hip: 5.0% -Comparison population: [place], A major osteoporotic fracture is defined as a fracture of the spine, forearm, hip or shoulder. FOLLOW-UP RECOMMENDATIONS: Patients without high risk factors for osteoporosis: T-score -1.0 to -1.5 - Consider repeat BMD in 5-10 years T-score -1.5 to -2.0 - Consider repeat BMD in 3-5 years T-score -2.0 to - 2.5 - Consider repeat BMD every 2 years Patients on treatment for osteoporosis: 1-2 years after initiation of treatment and every 2 years thereafter Dictated by Glenroy Ornelas DO DICTATION LOCATION: Location 1 - [facility] Procedure Note Glenroy Ornelas DO - 07/08/2022 XR DEXA BONE DENSITY AXIAL 1 OR MORE SITES DATE: 07/07/2022 2:03 PM HISTORY: 72 years old Female with post menopausal symptoms. PROCEDURE: Planar images of the lumbar spine, forearm and hip(s) using a [employer] DEXA scanner for bone mineral density determination (BMD). Absolute bone mineral density measurements (in gm/cm^2) are available on the original PACS report. FINDINGS: Lumbar Spine (L1-L4) T-score: 0.8 Left femoral neck T-score: -1.9 Right femoral neck T-score: -2.7 Left Radius 33% T-score: -1.4 Comments: None IMPRESSION Osteoporotic bone mineral density. DEFINITIONS: Normal: T-score above -1.0 Osteopenia T-score less than -1.0 and above -2.5 Osteoporosis: T-score < -2.5 FRAX FRACTURE RISK ASSESSMENT: Risk factors: History of fracture and secondary osteoporosis 10 Year Probability Of Fracture -Major Osteoporotic: 20.4% -Hip: 5.0% -Comparison population: [place], A major osteoporotic fracture is defined as a fracture of the spine, forearm, hip or shoulder. FOLLOW-UP RECOMMENDATIONS: Patients without high risk factors for osteoporosis: T-score -1.0 to -1.5 - Consider repeat BMD in 5-10 years T-score -1.5 to -2.0 - Consider repeat BMD in 3-5 years T-score -2.0 to - 2.5 - Consider repeat BMD every 2 years Patients on treatment for osteoporosis: 1-2 years after initiation of treatment and every 2 years thereafter Dictated by Glenroy Ornelas DO DICTATION LOCATION: Location 1 - [facility] Javi Arce MD DIAGNOSTIC IMAGING ORDERABLES Final Result * MAMMO SCRN BILAT 3D WICHO W OR WO CAD (07/07/2022 1:04 PM CDT) Anatomical Region Laterality Modality Breast Bilateral Mammography 07/07/2022 1:04 PM CDT Impressions 07/07/2022 3:51 PM CDT IMPRESSION: No suspicious findings to suggest malignancy in either breast. Annual mammography is recommended. OVERALL FINAL ASSESSMENT: BI-RADS CATEGORY 1 - Negative DICTATION LOCATION: [facility] Narrative 07/07/2022 3:51 PM CDT BILATERAL SCREENING DIGITAL MAMMOGRAM WITH 3D TOMOSYNTHESIS AND CAD DATE: 07/07/2022 1:04 PM HISTORY: Routine screening. TECHNIQUE: Full-field digital craniocaudal and mediolateral oblique projections of both breasts were obtained. Low-dose full-field digital breast tomosynthesis examination was performed with 2D and 3D acquisitions. Examination is read in conjunction with computer aided detection. COMPARISON: 09/29/2014, 06/03/2013 and 05/30/2012 BREAST COMPOSITION: There are scattered areas of fibroglandular density FINDINGS: No suspicious mass, suspicious microcalcifications, or architectural distortion is identified in either breast. Computer aided detection was used in the interpretation of this examination. Procedure Note Jm Tsai MD - 07/07/2022 BILATERAL SCREENING DIGITAL MAMMOGRAM WITH 3D TOMOSYNTHESIS AND CAD DATE: 07/07/2022 1:04 PM HISTORY: Routine screening. TECHNIQUE: Full-field digital craniocaudal and mediolateral oblique projections of both breasts were obtained. Low-dose full-field digital breast tomosynthesis examination was performed with 2D and 3D acquisitions. Examination is read in conjunction with computer aided detection. COMPARISON: 09/29/2014, 06/03/2013 and 05/30/2012 BREAST COMPOSITION: There are scattered areas of fibroglandular density FINDINGS: No suspicious mass, suspicious microcalcifications, or architectural distortion is identified in either breast. Computer aided detection was used in the interpretation of this examination. IMPRESSION: No suspicious findings to suggest malignancy in either breast. Annual mammography is recommended. OVERALL FINAL ASSESSMENT: BI-RADS CATEGORY 1 - Negative DICTATION LOCATION: [facility] Javi Arce MD MAMMO ORDERABLES Final Result from Last 3 Months or Most Recently Relevant to Health Maintenance Insurance [facility] [id number] [facility] MCR Care Teams Dub Room Engineer Relationship Specialty Start Date End Date Javi Arce MD [address] [facility] [address] [place] [address] PCP - General Internal Medicine 05/30/12
--- OUTSIDE RECORDS SUMMARY | 2024-05-11 11:24 | XMS_ITS | Data Portability ---
Author Organization [place] - [facility], Main Office Address [address] [place] [address] Care Team Providers Care Director Of Market Intelligence Name Role Phone NAYELI ARCE Primary Care Provider [phone] NAYELI ARCE Referring Provider Assessment Encounter Date Assessment Date Assessment LastModified by Organization Details LastModified Time 02/01/2023 02/01/2023 Impression: Patient has advanced osteoarthritis of the right hip and she would like to proceed with hip replacement. We did her parents hip replacements both them. I have given her the Ortho info handout on total hip arthroplasty for her review. I have discussed with her that direct anterior approach would not be possible for her. In this situation particularly with severe obesity and inability to protect the abductor repair after an anterolateral approach, I would advise her to see a posterior approach surgeon and of the and have a posterior approach total hip arthroplasty. However, in the setting of severe abductor tendon deficiency, if she has that, I think an anterolateral approach would be best so would avoid further destabilize in the right hip which would put her at higher risk for dislocation combination of posterior capsular release and release of external rotators with Concomitant severe abductor deficiency. As such, I would recommend obtaining an MRI scan of her right hip to evaluate this further. She felt a pop when she pushed something with her right leg and that pop might of been iliopsoas tendon or might have been some of the gluteus medius tendon or minimus tendon. Is unlikely that it would been a fracture as we should see evidence of fracture now 4 months later on today's radiographs. I have explained her that we would require that her hemoglobin A1c is 7.5 her last because if higher her risk of infection is excessively high. I believe she has an element of metabolic syndrome and this does put her at high risk for healing complications including infection which could be disastrous for her. She feels quite confident she can get her hemoglobin A1c down by just giving up the mm. She will do this. We will order another hemoglobin A1c 4 weeks from today to confirm that his 7.5 or less. Six weeks ago it was 7.0 I will see her back after the MRI scan of the right hip is completed. I recommended that she use a walker full-time with front wheels and she has 1 at home. The 45 minutes were spent in total care this patient more than half the time spent in [id number] care. [email or web address] Not available 02/01/2023 11:58:30 Plan of Treatment Reminders Order Date Submit Date Provider Last Modified By Organization Details Last Modified Time Details Appointments None recorded. Lab lipid panel, serum [id number] [place] [address] Outpatient Lab, [address] [place], [address], 16:11:39 CMP, serum or plasma [id number] [place] [address] Outpatient Lab, [address] [place], [address], 4 16:11:39 TSH, serum or plasma [id number] [place] [address] Outpatient Lab, [address] [place], [address], 4 16:11:39 T4, free, serum [id number] [place] [address] Outpatient Lab, [address] [place], [address], 16:11:39 CBC w/ auto diff [email or web address] [place] [address] Outpatient Lab, [address] [place], [address], 4 16:11:39 HbA1c (hemoglobin A1c), blood [email or web address] [place] [address] Outpatient Lab, [address] [place], [address], 4 16:11:40 microalbumi n, urine [id number] [place] [address] Outpatient Lab, [address] [place], [address], 4 16:11:40 lipid panel, serum [address] [facility] Outpatient Lab, [address] [place], [address], 4 17:54:25 CMP, serum or plasma 2023 024 [facility] Lab, [address] [place], [address], 4 17:54:43 TSH, serum or plasma [address] [facility] Outpatient Lab, [address] [place], [address], 4 19:01:27 T4, free, serum [address] [facility] Outpatient Lab, [address] [place], [address], 4 18:11:28 vitamin B12, serum [address] [facility] Outpatient Lab, [address] [place], [address], 4 19:03:33 magnesium, serum or plasma [address] [facility] Outpatient Lab, [address] [place], [address], 4 17:54:47 vitamin D, 25-hydroxy, total, serum [id number] [place] [address] Outpatient Lab, [address] [place], [address], 4 17:44:54 HbA1c (hemoglobin A1c), blood [email or web address] [place] [address] - Outpatient Lab, [address] [place], [address], 4 17:44:53 microalbumi n, urine 2023 024 [facility] - Outpatient Lab, [address] [place], [address], 4 18:10:38 CBC w/ auto diff [address] [facility] Outpatient Lab, [address] [place], [address], 17:36:52 lipid panel, serum [email or web address] [place] [address] Outpatient Lab, [address] [place], [address], 4 17:34:09 CMP, serum or plasma [id number] [place] [address] Outpatient Lab, [address] [place], [address], 4 17:34:09 TSH, serum or plasma [id number] [place] [address] Outpatient Lab, [address] [place], [address], 4 17:34:09 T4, free, serum [email or web address] [place] [address] Outpatient Lab, [address] [place], [address], 4 17:34:10 magnesium, serum or plasma [email or web address] [place] [address] Outpatient Lab, [address] [place], [address], 4 17:34:10 vitamin B12, serum 2023 024 [email or web address] [facility] [place] Outpatient Lab, [address] [place], [address], 4 17:34:10 HbA1c (hemoglobin A1c), blood 2023 024 [email or web address] [facility] [place] Outpatient Lab, [address] [place], [address], 4 17:34:10 microalbumi n, urine 2023 024 [email or web address] [facility] [place] Outpatient Lab, [address] [place], [address], 4 17:34:10 CBC w/ auto diff 2023 024 [facility] [place] Outpatient Lab, [address] [place], [address], 4 17:34:09 HbA1c (hemoglobin A1c), blood 2022 023 [email or web address] [facility] [place] Outpatient Lab, [address] [place], [address], 3 13:53:22 Referral None recorded. Procedures None recorded. Surgeries None recorded. Imaging XR, pelvis 2022 023 [email or web address] [facility] [place], [address], [place], [address], 3 15:03:50 XR, hip, unilateral 2022 023 [email or web address] [facility] [place], [address], [place], [address], 3 15:03:50 Medication Orders cyanocobala min (vit B-12) 1,000 mcg/mL injection solution [address] [facility], [address] [place] [address], [address], 4 16:55:26 cyanocobala min (vit B-12) 1,000 mcg/mL injection solution [address] [facility] [address] [facility], [address] [place] [address], [address], 4 16:22:37 cyanocobala min (vit B-12) 1,000 mcg/mL injection solution [address] [facility] [address] [facility], [address] [place] [address], [address], 3 16:56:05 Patient TargetsNo targets recorded. Patient Instructions Encounter Date Encounter Id Patient Instructions Last Modified By Organization Details Last Modified Time 01/18/2023 [id number] Follow-up hypertension, hyperlipidemia and type 2 diabetes clinically stable. Last hemoglobin A1c was 8.0. Will recheck the hemoglobin A1c lipid panel showed cholesterol 127 HDL 42 and LDL of 54. Will continue on current Rx follow-up in four months. Check hemoglobin A1c.FDA recommendations of a influenza, RSV, COVID, pneumococcal immunizations strongly advised. Portions of the record may have been created with voice recognition software. Occasional wrong-word or s ound-a-like substitutions may have occurred due to the inherent limitations of voice recognition software. Read the chart carefully and recognize, using context, where substitutions have occurred. [email or web address] Not available 01/18/2023 16:53:55 05/17/2023 [id number] Follow-up hypertension, hyperlipidemia, type 2 diabetes, obesity class one, chronic pain syndrome and GERD all clinically stable. Check blood work consisting of CBC, CMP, lipid, thyroid, hemoglobin A1c, microalbumin, B12 and magnesium level. Will continue on current Rx follow-up in four months. Portions of the record may have been created with voice recognition software. Occasional wrong-word or s ound-a-like substitutions may have occurred due to the inherent limitations of voice recognition software. Read the chart carefully and recognize, using context, where substitutions have occurred. [email or web address] Not available 05/17/2023 16:18:56 09/20/2023 [id number] dementia rating scale-2* [email or web address] Not available 09/20/2023 16:22:38 alcohol misuse* Not available 09/20/2023 16:22:38 depression screening* [email or web address] Not available 09/20/2023 16:22:37 Timed Up and Go test (TUG)* [email or web address] Not available 09/20/2023 16:22:38 multi-dimensiona l health assessment questionnaire* [email or web address] Not available 09/20/2023 16:22:38 Personalized [facility] lt Plan and Screening Recommendations Advance Directives - Do you have one? No Advance Directives - Do we have your advance directive on file in your health record? Primary Prevention/Interven tion (prevents or decreases the chance of common diseases from occurring) Smoking Risk: Non Smoker Alcohol Misuse Screening: Negative Weight: Appropriate Overwei ght continue your current weight loss efforts try to lose 5% of your body weight try to lose 10% of your body weight Physical activity: Need more exercise/physical activity Nutrition: Good Average Fall Risk (screened today): Low Intermediate Refer to attached handout Preventing Falls: After your Visit Recommend regular use of cane or walker Vaccines Pneumococcal: Ordered Recommended today Influenza: Your next one in the fall of this year Chronic Disease Risks Stroke: Low Risk Intermediate Risk I have no recommendations Act stacie diagnosis, Continue current treatment plan Heart Attack: Low risk Intermediate Risk I have no recommendations Act stacie diagnosis, Continue current treatment plan Clogging of the Arteries: Low risk Intermediate Risk I have no recommendations Act stacie diagnosis, Continue current treatment plan Diabetes: Low Risk Intermediate Risk Active diagnosis, Continue current treatment plan Secondary Prevention/Interven tion (detects treatable diseases before they may cause symptoms, disability, or ) Breast Cancer Screening with mammogram: Your next mammogram: Ordered Recommended today Cervical/Uterine/Ov benny Cancer Screening: No screening necessary Osteoporosis Screening: Date Screening Last Performed: Colon Cancer Screening: Colonoscopy Date Screening Last Performed: __2016___ Eye Disease Screening: Dementia Risk: Low I have no recommendations Depression Screening: Negative [email or web address] Not available 09/20/2023 16:13:18 Medicare wellnes s evaluation risk assessment stable. Follow-up for hypertension, hyperlipidemia, type 2 diabetes, peripheral neuropathy, obesity class one, senile osteoporosis and chronic GERD. Clinically stable. Check blood work consisting of CBC, CMP, lipid, thyroid, Hemoglobin A1c, microalbumin,B12, magnesium level and vitamin-D level. Additional Orders and/or Directives: 1. Mammogram Next Appointment: 4 Months Approximate Date: 01/18/2024 Portions of the record may have been created with voice recognition software. Occasional wrong-word or s ound-a-like substitutions may have occurred due to the inherent limitations of voice recognition software. Read the chart carefully and recognize, using context, where substitutions have occurred. [email or web address] Not available 09/20/2023 16:22:19 01/31/2024 [id number] Essential hypertension, hyperlipidemia, type 2 diabetes, chronic pain syndrome and obesity class one all clinically stable. Check blood work consisting of CBC, CMP, lipid, hemoglobin A1c and microalbumin. Continue on current Rx follow-up in four months. Was given a flu shot and pneumonia shot. Follow Up: 4 Months Approximate Date: 05/30/2024 Portions of the record may have been created with voice recognition software. Occasional wrong-word or s ound-a-like substitutions may have occurred due to the inherent limitations of voice recognition software. Read the chart carefully and recognize, using context, where substitutions have occurred. Created: Nayeli Arce M.D. 01.31.2024 03:54 PM Created: Nayeli Arce M.D. 01.31.2024 03:54 PM [email or web address] Not available 01/31/2024 16:55:24 Reason for Referral None Reported. Results Created Date Observation Date Name Description Value Unit Range Abnormal Flag Note LastModifiedBy Organization Detail LastModifiedTime 01/19/20 23 01/18/2023 HEMOG LOBIN A1C HA1C 8.0 % 4.0-6. 0 high Diabe romulo Scree mere Crite nasreen: <5.7% Consi stent with absen ce of diabe romulo 5.7-6 .4% Consi stent with incre ased risk for diabe romulo (pred iabet es) >OR=6 .5% Consi stent with diabe romulo REFER ENCE: Diabe romulo Care 2016, 39( ppl.1 ):s13 -s22 Not Available [facility] (Lab) [address] [place], [address], 01/18/2023 20:30:55 09/21/19 24 09/21/2023 CBC/C OMPLE TE BLD COUNT W/DIF F white blood cells 6.4 x10'3 /uL 4.2-10 .8 Not Available [facility] (Lab) [address] [place], [address], 09/21/2023 17:36:52 09/21/19 24 09/21/2023 CBC/C OMPLE TE BLD COUNT W/DIF F red blood cells 4.69 x10'6 /uL 3.80-5 .20 Not Available [facility] (Lab) [address] [place], [address], 09/21/2023 17:36:52 09/21/19 24 09/21/2023 CBC/C OMPLE TE BLD COUNT W/DIF F hemoglobin 13.3 g/dL 12.0-1 5.6 Not Available [facility] (Lab) [address] [place], [address], 09/21/2023 17:36:52 09/21/19 24 09/21/2023 CBC/C OMPLE TE BLD COUNT W/DIF F hematocrit 41.8 % 35.7-4 5.7 Not Available [facility] (Lab) [address] [place], [address], 09/21/2023 17:36:52 09/21/19 24 09/21/2023 CBC/C OMPLE TE BLD COUNT W/DIF F mean red cell volume 89.1 fL 82.0-9 9.0 Not Available [facility] (Lab) [address] [place], [address], 09/21/2023 17:36:52 09/21/19 24 09/21/2023 CBC/C OMPLE TE BLD COUNT W/DIF F mean red cell hemoglobin 28.4 pg 27.0-3 3.0 Not Available [facility] (Lab) [address] [place], [address], 09/21/2023 17:36:52 09/21/19 24 09/21/2023 CBC/C OMPLE TE BLD COUNT W/DIF F mean RBC HGB concentratio n 31.8 g/dL 31.0-3 6.0 Not Available [facility] (Lab) [address] [place], [address], 09/21/2023 17:36:52 09/21/19 24 09/21/2023 CBC/C OMPLE TE BLD COUNT W/DIF F red cell distribution width 12.8 % 11.8-1 5.5 Not Available [facility] (Lab) [address] [place], [address], 09/21/2023 17:36:52 09/21/19 24 09/21/2023 CBC/C OMPLE TE BLD COUNT W/DIF F platelets 273 x10'3 /uL 150-40 0 Not Available [facility] (Lab) [address] [place], [address], 09/21/2023 17:36:52 09/21/19 24 09/21/2023 CBC/C OMPLE TE BLD COUNT W/DIF F mean platelet volume 10.2 fL 9.0-12 .4 Not Available [facility] (Lab) [address] [place], [address], 09/21/2023 17:36:52 09/21/19 24 09/21/2023 CBC/C OMPLE TE BLD COUNT W/DIF F neutrophils 53.0 % 39.0-7 2.0 Not Available [facility] (Lab) [address] [place], [address], 09/21/2023 17:36:52 09/21/19 24 09/21/2023 CBC/C OMPLE TE BLD COUNT W/DIF F lymphocytes 34.8 % 16.0-4 7.0 Not Available [facility] (Lab) [address] [place], [address], 09/21/2023 17:36:52 09/21/19 24 09/21/2023 CBC/C OMPLE TE BLD COUNT W/DIF F monocytes 9.1 % 5.0-12 .0 Not Available [facility] (Lab) [address] [place], [address], 09/21/2023 17:36:52 09/21/19 24 09/21/2023 CBC/C OMPLE TE BLD COUNT W/DIF F eosinophils 2.0 % 1.0-7. 0 Not Available [facility] (Lab) [address] [place], [address], 09/21/2023 17:36:52 09/21/19 24 09/21/2023 CBC/C OMPLE TE BLD COUNT W/DIF F basophils 0.8 % 0.0-2. 0 Not Available [facility] (Lab) [address] [place], [address], 09/21/2023 17:36:52 09/21/19 24 09/21/2023 CBC/C OMPLE TE BLD COUNT W/DIF F immature granulocytes 0.3 % 0.00-0 .50 Not Available [facility] (Lab) [address] [place], [address], 09/21/2023 17:36:52 09/21/19 24 09/21/2023 CBC/C OMPLE TE BLD COUNT W/DIF F neutrophils, absolute count 3.38 x10'3 /uL 1.5-8. 0 Not Available [facility] (Lab) [address] [place], [address], 09/21/2023 17:36:52 09/21/19 24 09/21/2023 CBC/C OMPLE TE BLD COUNT W/DIF F lymphocytes, absolute count 2.22 x10'3 /uL 1.07-3 .43 Not Available [facility] (Lab) [address] [place], [address], 09/21/2023 17:36:52 09/21/19 24 09/21/2023 CBC/C OMPLE TE BLD COUNT W/DIF F monocytes, absolute count 0.58 x10'3 /uL 0.29-0 .99 Not Available [facility] (Lab) [address] [place], [address], 09/21/2023 17:36:52 09/21/19 24 09/21/2023 CBC/C OMPLE TE BLD COUNT W/DIF F eosinophils, absolute count 0.13 x10'3 /uL 0.02-0 .53 Not Available [facility] (Lab) [address] [place], [address], 09/21/2023 17:36:52 09/21/19 24 09/21/2023 CBC/C OMPLE TE BLD COUNT W/DIF F basophils, absolute count 0.05 x10'3 /uL 0.01-0 .08 Not Available [facility] (Lab) [address] [place], [address], 09/21/2023 17:36:52 09/21/19 24 09/21/2023 CBC/C OMPLE TE BLD COUNT W/DIF F immature granulocytes ,absolute 0.02 x10'3 /uL 0.00-0 .05 Not Available [facility] (Lab) [address] [place], [address], 09/21/2023 17:36:52 09/21/19 24 09/21/2023 CBC/C OMPLE TE BLD COUNT W/DIF F nucleated red blood cells 0.0 % -0 Not Available [facility] (Lab) [address] [place], [address], 09/21/2023 17:36:52 09/21/1909/21/2023 CBC/C OMPLE TE BLD COUNT W/DIF F NRBC# 0.00 x10'3 /uL Not Available [facility] (Lab) [address] [place], [address], 09/21/2023 17:36:52 09/21/19 24 09/21/2023 LIPID PANEL cholesterol 109 mg/dL 140-19 9 low NIH MILES NSUS RECOM MENDA TION FOR LEORA STERO L: ADULT CHILD LOW RISK: <200 <170 BORDE RLINE : <200- 239 ----- HIGH RISK: >240 >200 Not Available [facility] (Lab) [address] [place], [address], 09/21/2023 17:54:25 09/21/19 24 09/21/2023 LIPID PANEL triglyceride s 142 mg/dL 0-150 NIH MILES NSUS REPOR T RECOM MENDA TION FOR TRIGL YCERI DMITRY: ADULT CHILD LOW RISK: <150 ----- BODER LINE: 150-1 99 ----- HIGH RISK: >200 ----- Not Available [facility] (Lab) [address] [place], [address], 09/21/2023 17:54:25 09/21/1909/21/2023 LIPID PANEL HDL cholesterol 46 mg/dL 40- Not Available [facility] (Lab) [address] [place], [address], 09/21/2023 17:54:25 09/21/19 24 09/21/2023 LIPID PANEL LDL cholesterol, calculated 35 mg/dL 0-130 NIH MILES NSUS REPOR T RECOM MENDA TIONS FOR LDL: ADULT CHILD LOW RISK <130 <110 (OPTI MAL LDL) <100 ----- BORDE RLINE : 130-1 59 ----- HIGH RISK: >160 >130 A TRIGL YCERI DE RESUL T >400 INVAL IDATE S THE CALCU LATIO N FOR LDL FRACT IONAT ION - THE LDL RESUL T WILL NOT BE REPOR DANIEL. Not Available [facility] (Lab) [address] [place], [address], 09/21/2023 17:54:25 09/21/19 24 09/21/2023 COMPR EHENS STACIE METAB OLIC PANEL sodium 138 mmol/ L 137-14 5 Not Available [facility] (Lab) [address] [place], [address], 09/21/2023 17:54:43 09/21/19 24 09/21/2023 COMPR EHENS STACIE METAB OLIC PANEL potassium 4.6 mmol/ L 3.5-5. 1 Not Available [facility] (Lab) [address] [place], [address], 09/21/2023 17:54:43 09/21/19 24 09/21/2023 COMPR EHENS STACIE METAB OLIC PANEL chloride 107 mmol/ L 98-107 Not Available [facility] (Lab) [address] [place], [address], 09/21/2023 17:54:43 09/21/19 24 09/21/2023 COMPR EHENS STACIE METAB OLIC PANEL carbon dioxide 27 mmol/ L 22-30 Not Available [facility] (Lab) [address] [place], [address], 09/21/2023 17:54:43 09/21/19 24 09/21/2023 COMPR EHENS STACIE METAB OLIC PANEL anion gap 8.6 mmol/ L 14-22 low Not Available [facility] (Lab) [address] [place], [address], 09/21/2023 17:54:43 09/21/19 24 09/21/2023 COMPR EHENS STACIE METAB OLIC PANEL glucose 67 mg/dL 70-99 low Not Available [facility] (Lab) [address] [place], [address], 09/21/2023 17:54:43 09/21/19 24 09/21/2023 COMPR EHENS STACIE METAB OLIC PANEL BUN 20 mg/dL 8-19 high Not Available [facility] (Lab) [address] [place], [address], 09/21/2023 17:54:43 09/21/19 24 09/21/2023 COMPR EHENS STACIE METAB OLIC PANEL creatinine 0.85 mg/dL 0.66-1 .25 Not Available [facility] (Lab) [address] [place], [address], 09/21/2023 17:54:43 09/21/19 24 09/21/2023 COMPR EHENS STACIE METAB OLIC PANEL GFR >60 Refer ence Range : [place] ge GFR Healt hy Adult : >60 mL/mi n/1.7 3 m2 Chron ic Kidne y Disea se: 15-60 mL/mi n/1.7 3 m2 Kidne y Failu re: <15/m L/min /1.73 m2 www.n iddk. nih.g ov The MDRD study equat ion has not been valid ated in child martha <18 years of age; pregn ant women ; the elder ly >85 years of age; or in some racia l or ethni c subgr oups, such as Hisks nics. Outsi de the valid ated elizabeth eters , estim ated GFR is less accur ate, requi ring clini marina judgm ent on a case- by-ca se basis . Clini marina inter preta tion for other races and ages must be made by the clini salty. The MDRD study equat ion has not been valid ated for the evalu ation of serum creat inine relat ed to nutri eva l statu s or medic ation usage . For perso ns <18 years of age, a pedia tric GFR calcu lator is avail able on the [facility] websi te: https ://chicho sawant.kb hammond/pr ofess ional s/kdo qi/gf r_cal culat or Not Available [facility] (Lab) [address] [place], [address], 09/21/2023 17:54:43 09/21/19 24 09/21/2023 COMPR EHENS STACIE METAB OLIC PANEL alkaline phosphatase 102 U/L 38-126 Not Available [facility] (Lab) [address] [place], [address], 09/21/2023 17:54:43 09/21/19 24 09/21/2023 COMPR EHENS STACIE METAB OLIC PANEL alanine aminotransfe rase 28 U/L 0-35 Not Available [facility] (Lab) [address] [place], [address], 09/21/2023 17:54:43 09/21/19 24 09/21/2023 COMPR EHENS STACIE METAB OLIC PANEL aspartate aminotransfe rase 31 U/L 15-37 Not Available [facility] (Lab) [address] [place], [address], 09/21/2023 17:54:43 09/21/19 24 09/21/2023 COMPR EHENS STACIE METAB OLIC PANEL bilirubin, total 0.60 mg/dL 0.20-1 .30 Not Available [facility] (Lab) [address] [place], [address], 09/21/2023 17:54:43 09/21/19 24 09/21/2023 COMPR EHENS STACIE METAB OLIC PANEL calcium 9.8 mg/dL 8.4-10 .2 Not Available [facility] (Lab) [address] [place], [address], 09/21/2023 17:54:43 09/21/19 24 09/21/2023 COMPR EHENS STACIE METAB OLIC PANEL total protein 6.8 g/dL 6.3-8. 2 Not Available [facility] (Lab) [address] [place], [address], 09/21/2023 17:54:43 09/21/19 24 09/21/2023 COMPR EHENS STACIE METAB OLIC PANEL albumin 4.3 g/dL 3.0-4. 4 Not Available [facility] (Lab) [address] [place], [address], 09/21/2023 17:54:43 09/21/19 24 09/21/2023 COMPR EHENS STACIE METAB OLIC PANEL globulin 2.5 g/dL 2.6-4. 2 low Not Available [facility] (Lab) [address] [place], [address], 09/21/2023 17:54:43 09/21/19 24 09/21/2023 COMPR EHENS STACIE METAB OLIC PANEL A/G ratio 1.7 ratio 1.0-2. 0 Not Available [facility] (Lab) [address] [place], [address], 09/21/2023 17:54:43 09/21/19 24 09/21/2023 MAGNE SIUM magnesium 1.7 mg/dL 1.6-2. 3 Not Available [facility] (Lab) [address] [place], [address], 09/21/2023 17:54:47 09/21/19 24 09/21/2023 MICRO ALBUM IN RANDO M URINE microalbumin , urine 30.4 mg/L 0.0-16 .6 high Not Available [facility] (Lab) [address] [place], [address], 09/21/2023 18:10:37 09/21/19 24 09/21/2023 VITAM IN D 25-HY DROXY [id number] 28.5 NG/mL 30-100 low Vitam in D Statu s: Defic ient: <20 ng/mL Insuf ficie nt: 20-29 ng/mL Suffi cient : 30-10 0 ng/mL Not Available [facility] (Lab) [address] [place], [address], 09/21/2023 18:10:43 09/21/19 24 09/21/2023 T4 FREE free T4 1.39 NG/dL 0.78-2 .19 Not Available [facility] (Lab) [address] [place], [address], 09/21/2023 18:11:28 09/21/19 24 09/21/2023 TSH thyroid-stim ulating hormone 0.040 uIU/m L 0.465- 4.680 low Not Available [facility] (Lab) [address] [place], [address], 09/21/2023 19:01:27 09/21/19 24 09/21/2023 VITAM IN B12 (HENNY BHARTI ) vb12 >1000 pg/mL 239-93 1 high Not Available [facility] (Lab) [address] [place], [address], 09/21/2023 19:03:33 09/21/19 24 09/21/2023 HEMOG LOBIN A1C HA1C 8.0 % 4.0-6. 0 high Diabe romulo Scree mere Crite nasreen: <5.7% Consi stent with absen ce of diabe romulo 5.7-6 .4% Consi stent with incre ased risk for diabe romulo (pred iabet es) >OR=6 .5% Consi stent with diabe romulo REFER ENCE: Diabe romulo Care 2016, 39(Vázquez ppl.1 ):s13 -s22 Not Available [facility] (Lab) [address] [place], [address], 09/21/2023 20:47:03 01/26/20 23 01/24/2023 XR, hip, unila teral [facility] [address] [facility] [place] [address] Patien t Name: JOSEPH LOVE Access ion #: [id number] Sex: F : 1950 1 Dictat ed By: Olu Hernandez Attend ing Physic yuridia: BERTRAND ARCE CE Orderi ng Physic yuridia: CANDELARIO BECK Exam Date: 2022 14:53 PM Exam Name: XR HIP RT 2-3V Admitt ing Diagno sis(es ): Right hip Clinic al Indica tion: pain in right hip Compar agustin: None FINDIN GS: The AP and frog-l eg views of the hip show normal alignm ent withou t fractu res or disloc ations . There are no radio- opaque foreig n bodies . The acetab ulum is narrow ed.. There is no radiog raphic eviden ce of femoro -aceta bular imping ement or acetab ular dyspla elizabeth. The visual ized sacroi liac joint and symphy sis pubis are unrema rkable . If there is furthe r concer n, recomm end follow -up radiog raphs or MRI for comple te assess ment. IMPRES SHANTAL: No fractu re or disloc ation of the right hip. Change s of right hip arthri tis Electr onical ly Signed by: Olu Hernandez at 2022 01:13: 21 AM Page 1 [email or web address] [facility] (Imaging) [address] [place], [address], 01/25/2023 07:10:24 02/02/20 23 XR, pelvi s No observ ation record ed. [email or web address] [facility] [place] [address], [place], [address], 02/01/2023 11:54:38 02/02/20 23 XR, hip, unila teral No observ ation record ed. [facility] [place] [address], [place], [address], 02/01/2023 10:43:59 Result Notes None recorded. 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 Active 2021 Not Available [facility] 3 12:55:38 Irritable bowel syndrome with diarrhea 016713245 Active 2021 Not Available [facility] 3 12:55:38 Traumatic arthropat hy of the ankle and/or foot 456000405 Active Not Available [facility] 3 12:55:38 Closed fracture proximal humerus, greater tuberosit y 638166591 Active Not Available [facility] 3 12:55:38 Overexert ion and strenuous movements Active Not Available [facility] 3 12:55:38 Gastroeso phageal reflux disease 501223132 Active Not Available [facility] 3 12:55:38 Gallstone 227473535 Active Not Available [facility] 3 12:55:38 Ankle pain 786384721 Active 2021 Not Available [facility] 3 12:55:38 Ankle pain 351171427 Active Not Available [facility] 3 12:55:38 Pure hyperchol esterolem ia 038142451 Active Not Available [facility] 3 12:55:38 Anemia 573290601 Active 2021 Not Available [facility] 3 12:55:38 Acquired pes planus of right foot 74235101939 9106 Active 2021 Not Available [facility] 3 12:55:38 Type 2 diabetes mellitus without complicat ion 409562093 Active 2021 Not Available [facility] 3 12:55:38 Postartif icial menopausa l syndrome 71354206 Active Not Available [facility] 3 12:55:38 Pain in right foot 67513673775 9107 Active 2021 Not Available [facility] 3 12:55:39 Pain in right hip joint 13880919133 9102 Active 2022 Not Available [facility] 3 12:55:39 Enthesopa thy of wrist AND/OR carpus 39871476 Active Not Available [facility] 3 12:55:39 Umbilical hernia 604733556 Active Not Available [facility] 3 12:55:39 Type 2 diabetes mellitus 38571573 Active Not Available [facility] 3 12:55:39 Dermatoph ytosis 66677371 Active Not Available [facility] 3 12:55:39 Foot pain 96200787 Active Not Available [facility] 3 12:55:39 Carpal tunnel syndrome 02863976 Active Not Available [facility] 3 12:55:39 Joint pain 93237807 Active Not Available [facility] 3 12:55:39 Essential hypertens ion 90931896 Active 2020 Not Available [facility] 3 12:55:39 Fracture of humerus 52624258 Active Not Available [facility] 3 12:55:40 Well controlle d type 2 diabetes mellitus 599191725 Active 2022 MARCO Irby, [facility] 3 15:36:59 Chronic pain syndrome 168808357 Active 2022 Alize Andrade CMA null, [place] [facility] [employer] [facility] 3 16:59:33 Neuropath y due to diabetes mellitus 795084343 Active 2022 Nayeli Arce MD [address], [place], [address] , [facility] 3 16:24:37 Obese class I 49588614311 4107 Active 2022 Nayeli Arce MD [address], [place], [address] , [facility] 3 16:27:32 Low back pain 087026729 Active 2022 Sammi Aguirre null, [facility] 3 12:34:02 Hypokalem ia 96028919 Active 2022 Alize Andrade CMA null, [facility] 3 14:03:50 Uncontrol led type 2 diabetes mellitus 005677362 Active 2022 Sammi Aguirre null, [facility] 3 15:26:51 Cobalamin deficienc y 077530510 Active 2023 Annette Hernandez MA null, [facility] 4 16:43:14 Tinea cruris 912694007 Active 2023 Nayeli Arce MD [address], [place], [address] , [facility] 4 16:27:02 Nausea and vomiting 51525983 Active 2024 Nayeli Arce MD [address], [place], [address] , [facility] 5 12:02:42 Problem Notes None recorded. Procedures Surgical History Date Name Laterality Status Provider Name and Address Organization Details Recorded Time 09/20/19 24 Medicare Wellness CPT Code, subsequent completed Makeda Martin RN [facility] 09/20/2023 16:06:29 09/15/19 23 Medicare Wellness CPT Code, subsequent completed Makeda Martin RN [facility] 09/14/2022 16:19:07 12/09/19 17 Date of Last Colonoscopy completed Not Available [facility] 05/04/2022 12:53:07 Imaging Results Imaging Date Name Status LastModified by Organiz ation Details LastModified Time 01/24/2023 XR, hip, unilateral completed [email or web address] [place] [address] (Imaging) [address], [place], [address], 01/25/2023 07:10:24 02/01/2023 XR, pelvis completed [email or web address] [facility] [place] [address], [place], [address], 02/01/2023 11:54:38 02/01/2023 XR, hip, unilateral completed [facility] [place] [address], [place], [address], 02/01/2023 10:43:59 Procedure Notes None recorded. Medical Equipment None Reported. Allergies Allergen ID Allergen Name Allergen Category Reaction Reaction Severity Criticality Documentation Date Start Date Code Code System Note Provider Name and Address Organization Details Recorded Time 42512 Substance with sulfonami de structure and antibacte rial mechanism of action (substanc e) medicatio n rash Not available Not available 05/04/2022 84617 8003 SNOMED Not Available [facility] 3 12:59:23 31166 metformin / saxaglipt in medicatio n vomiting Not available Not available 05/04/2022 27829 62 RxNorm Not Available [facility] 3 12:59:23 81817 Acetamino phen / Propoxyph diana medicatio n other Not available Not available 05/04/2022 21201 RxNorm flush ing Not Available [facility] 3 12:59:23 Medications Name Sig Start Date Stop Date Status Note LastModified by Organization Details LastModified Time cyclobenzap rine 10 mg tablet Take 1 tablet three times daily 12/07 completed Not Available Not Available Not Available atorvastati n 40 mg tablet TAKE 1 TABLET BY MOUTH ONCE DAILY active Not Available Not Available No t Available metformin 500 mg tablet Take 1 tablet 3 times a day by oral route. 01/09 completed Not Available Not Available Not Available Novolin 70/30 U-100 Insulin 100 unit/mL subcutaneou s suspension Inject 10 units twice a day by subcutane ous route. 2022 active Not Available Not Available Not Avai lable hydrochloro thiazide 50 mg tablet TAKE 1 TABLET BY MOUTH ONCE DAILY 01/09 completed Not Available Not Available Not Available meloxicam 15 mg tablet TAKE ONE TABLET BY MOUTH ONCE DAILY 06/16 completed Not Available Not Available Not Available lisinopril 20 mg tablet Take 1 tablet every day by oral route. 2012 active Not Available Not Available Not Avai lable ondansetron HCl 4 mg tablet Take 2 tablets twice a day by oral route. 2024 active Not Available Not Available Not Avai lable alendronate 70 mg tablet TAKE 1 TABLET BY MOUTH ONCE A WEEK active Not Available Not Available No t Available aspirin 81 mg tablet,maribel yed release Take 1 tablet every day by oral route. 2020 active Not Available Not Available Not Avai lable tramadol 50 mg tablet TAKE 1 TABLET BY MOUTH 4 TIMES DAILY NEEDED FOR PAIN active Not Available Not Available No t Available meloxicam 7.5 mg tablet Take 1 tablet every day by oral route as needed. 04/27 completed Not Available Not Available Not Available lancets one touch verio lancets to test blood sugars daily active Not Available Not Available No t Available MagOx 400 mg (241.3 mg magnesium) tablet Take 1 tablet(s) twice a day by oral route. 06/14 completed Not Available Not Available Not Available potassium chloride ER 20 mEq tablet,exte nded release(par t/cryst) TAKE 1 TABLET BY MOUTH ONCE DAILY active Not Available Not Available No t Available cephalexin 500 mg capsule active Not Available Not Available Not Available cyanocobala min (vit B-12) 1,000 mcg/mL injection solution 1 ml monthly 2023 active Not Available Not Available Not Avai lable metformin 1,000 mg tablet TAKE 1 TABLET BY MOUTH TWICE DAILY active Not Available Not Available No t Available ranitidine 150 mg tablet Take 1 tablet twice a day by oral route. 01/09 completed Not Available Not Available Not Available clotrimazol e-betametha sone 1 %-0.05 % topical cream APPLY TO THE AFFECTED AND SURROUNDI NG AREAS OF SKIN BY TOPICAL ROUTE 2 TIMES PER DAY IN THE MORNING AND EVENING FOR 2 WEEKS 2023 active Not Available Not Available Not Avai lable lisinopril 10 mg tablet TAKE 1 TABLET BY MOUTH ONCE DAILY active Not Available Not Available No t Available glimepiride 4 mg tablet TAKE 1 TABLET BY MOUTH TWICE DAILY active Not Available Not Available No t Available promethazin e 25 mg tablet active Not Available Not Available Not Available omeprazole 20 mg capsule,del ayed release Take 1 capsule by mouth once daily 2024 active Not Available Not Available Not Avai lable furosemide 20 mg tablet TAKE 1 TABLET BY MOUTH ONCE DAILY active Not Available Not Available No t Available gabapentin 100 mg capsule TAKE 1 CAPSULE BY MOUTH THREE TIMES DAILY active Not Available Not Available No t Available metoprolol succinate ER 25 mg tablet,exte nded release 24 hr TAKE 1 TABLET BY MOUTH ONCE DAILY 06/14 completed Not Available Not Available Not Available ergocalcife rol (vitamin D2) 1,250 mcg (50,000 unit) capsule Take 1 capsule by mouth once a week active Not Available Not Available No t Available metformin ER 500 mg tablet,exte nded release 24 hr TAKE 2 TABLETS BY MOUTH TWICE DAILY 04/27 completed Not Available Not Available Not Available Blood Glucose Monitoring kit 2014 active Not Available Not Available Not Avai lable Magnesium (oxide/AA chelate) 300 mg capsule Take 1 capsule twice a day by oral route. 2022 active Not Available Not Available Not Avai lable Novolin 70/30 U-100 Insulin inject 10 units am and 10 units pm 02/23 completed Not Available Not Available Not Available Imodium A-D 01/09 completed Not Available Not Available Not Available multivitami n daily 01/09 completed Not Available Not Available Not Available Sudafed PE 01/09 completed Not Available Not Available Not Available PreserVisio n AREDS daily 01/09 completed Not Available Not Available Not Available pen needle, diabetic 32 gauge x 5/32 USE TO ADMINISTE R BASAGLAR DAILY 2022 active Not Available Not Available Not Avai lable Caltrate 600 plus D twice a day 2012 active Not Available Not Available Not Avai lable Tradjenta 5 mg tablet TAKE 1 TABLET BY MOUTH ONCE DAILY 04/27 completed Not Available Not Available Not Available OneTouch Verio test strips use to test blood sugar twice a day 2022 active Not Available Not Available Not Avai lable potassium chloride ER 20 mEq tablet,exte nded release TAKE 1 TABLET BY MOUTH ONCE DAILY active Not Available Not Available No t Available Jardiance 10 mg tablet TAKE 1 TABLET BY MOUTH ONCE DAILY BY MOUTH MATERIALS ANALYST BEFORE BREAKFAST 06/14 completed Not Available Not Available Not Available Basaglar KwikPen U-100 Insulin 100 unit/mL (3 mL) subcutaneou s Inject 15 units every day by subcutane ous route at bedtime. 02/23 completed Not Available Not Available Not Available Toujeo Max U-300 SoloStar 300 unit/mL (3 mL) subcutaneou s insulin pen Inject 16 units every day by subcutane ous route. 04/27 completed Not Available Not Available Not Available BD Insulin Syringe 0.3 mL 29 gauge x 1/2 use to inject insulin twice a day 02/23 completed Not Available Not Available Not Available OneTouch Delica Plus Lancet 33 gauge USE 1 TO CHECK GLUCOSE TWICE DAILY 2022 active Not Available Not Available Not Avai lable Vitals Date Recorded Body height Body mass index (BMI) Body weight Body temperature Oxygen saturation Oxygen saturation in Arterial blood by Pulse oximetry Systolic blood pressure Diastolic blood pressure Provider Name and Address Organization Details Last Updated DateTime 3 162.56 cm 33.5 kg/m2 17038.5 1 g 97 [degF] 95 % 95 % 132 mm[Hg] 78 mm[Hg] Sammi Aguirre [employer] 3 16:40:55 Date Recorded Heart rate Provider Name an d Address Organization Details Last Updated DateTime 01/18/2023 100 /min Nayeli Arce MD [address], [facility] [address], [place], [address], [employer] 01/18/2023 16:48:38 Date Recorded Body height Body mass index (BMI) Body weight Provider Name and Address Organization Details Last Updated DateTime 02/01/2023 160.02 cm 34.2 kg/m2 50208.33 g EMMANUEL Whitney [employer] [facility] 02/01/2023 10:29:05 Date Recorded Body height Body mass index (BMI) Body weight Heart rate Body temperature Oxygen saturation Oxygen saturation in Arterial blood by Pulse oximetry Systolic blood pressure Diastolic blood pressure Provider Name and Address Organization Details Last Updated DateTime 4 160.02 cm 33.4 kg/m2 16469.1 6 g 111 /min 97 [degF] 95 % 95 % 120 mm[Hg] 64 mm[Hg] Sammi Aguirre [facility] 4 16:03:11 Date Recorded Body height Body mass index (BMI) Body weight Heart rate Body temperature Oxygen saturation Oxygen saturation in Arterial blood by Pulse oximetry Systolic blood pressure Diastolic blood pressure Provider Name and Address Organization Details Last Updated DateTime 4 160.02 cm 32.8 kg/m2 81126.5 9 g 111 /min 97.2 [degF] 96 % 96 % 124 mm[Hg] 74 mm[Hg] EMMANUEL Ortega [facility] 4 16:00:08 Date Recorded Pain severity - 0-10 verbal numeric rating [Score] - Reported Provider Name and Address Organization Details Last Updated DateTime 09/20/2023 7 Makeda Martin RN [facility] 09/20/2023 16:06:49 Date Recorded Body height Body weight Heart rate Body temperature Oxygen saturation Oxygen saturation in Arterial blood by Pulse oximetry Systolic blood pressure Diastolic blood pressure Provider Name and Address Organization Details Last Updated DateTime 4 160.02 cm 62759.3 7 g 104 /min 97 [degF] 98 % 98 % 140 mm[Hg] 60 mm[Hg] EMMANUEL Ortega [facility] 4 16:33:24 Social History Question Answer Notes LastModified by Organization Details LastModified Time Tobacco Smoking Status Never Smoker Not Available [facility] 05/04/2022 12:53:05 Do You Have An Advance Directive? No Info Given Previously [email or web address] Information not available 09/20/2023 What Is Your Level Of Alcohol Consumption? None [id number] Information not available 05/04/2022 Are You Blind Or Do You Have Difficulty Seeing? No [id number] Information not available 05/04/2022 In The 14 Days Before Symptom Onset, Have You Had Close Contact With A Laboratory-conf bradley [id number]-19 While That Case Was Ill? No [id number].0301 [id number] Information not available 05/04/2022 In The 14 Days Before Symptom Onset, Have You Had Close Contact With A Person Who Is Under Investigation For COVID-19 While That Person Was Ill? No MIGRATION.0301 [id number] Information not available 05/04/2022 Are You Deaf Or Do You Have Serious Difficulty Hearing? No MIGRATION.0301 [id number] Information not available 05/04/2022 What Type Of Diet Are You Following? REGULAR MIGRATION.0301 [id number] Information not available 05/04/2022 Have There Been Any Changes To Your Family Or Social Situation? No MIGRATION.0301 [id number] Information not available 05/04/2022 What Is The Fluoride Status Of Your Home? Unknown MIGRATION.0301 [id number] Information not available 05/04/2022 Are There Any Guns Present In Your Home? No MIGRATION.0301 [id number] Information not available 05/04/2022 Do You Use Insect Repellent Routinely? No MIGRATION.0301 [id number] Information not available 05/04/2022 [facility] [id number] Information not available 05/04/2022 Guns Present In The Home? No [email or web address] Information not available 09/20/2023 Are You Able To Care For Yourself? Yes Information not available 09/20/2023 Are You Blind Or Do Yo Have Difficulty Seeing? No [email or web address] Information not available 09/20/2023 Are You Deaf Or Do You Have Serious Difficulty Hearing? No [email or web address] Information not available 09/20/2023 Live Alone Of With Others? Alone [email or web address] Information not available 09/20/2023 Do You Have A Medical Power Of Retail Associate Manager Bilingual? No MIGRATION.0301 [id number] Information not available 05/04/2022 What Was The Date Of Your Most Recent Tobacco Screening? 09/20/2023 [email or web address] Information not available 09/20/2023 Do You Have Any Pets? No [email or web address] Information not available 09/20/2023 Do You Use Your Seat Belt Or Car Seat Routinely? Yes MIGRATION.0301 [id number] Information not available 05/04/2022 Do You Have Smoke And Carbon Monoxide Detectors In Your Home? Yes MIGRATION.0301 [id number] Information not available 05/04/2022 Are You Passively Exposed To Smoke? No MIGRATION.0301 [id number] Information not available 05/04/2022 Are There Any Smokers In Your House? No [email or web address] Information not available 09/14/2022 Do You Use Sunscreen Routinely? No MIGRATION.0301 [id number] Information not available 05/04/2022 Have You Recently Traveled Abroad? No MIGRATION.0301 [id number] Information not available 05/04/2022 Do You Have Any Dietary Restrictions? No MIGRATION.0301 856237 Information not available 05/04/2022 Sex: Unknown Functional Status Question Answer Note LastModified by Organizat ion Details LastModified Time Do you have difficulty walking or climbing stairs? Yes uses a walker [email or web address] Information not available 09/20/2023 Do you have transportation difficulties? No MIGRATION.[id number] [id number] Information not available 05/04/2022 Are you able to walk? YESASSIST [email or web address] Information not available 09/20/2023 Do you have difficulty doing errands alone? No MIGRATION.[id number] 5345 Information not available 05/04/2022 Are you able to care for yourself? Yes MIGRATION.189361 4120 Information not available 05/04/2022 Do you have difficulty dressing or bathing? No MIGRATION.[id number] 5440 Information not available 05/04/2022 What is your exercise level? Occasional MIGRATION.[id number] 0890 Information not available 05/04/2022 Mental Status Question Answer Note LastModified by Organizat ion Details LastModified Time Do you have difficulty concentrating, remembering or making decisions? No [id number].[id number] Information not available 05/04/2022 Family History Relationship Description Onset Age of this Age Resolved Age Notes LastModified by Organization Details LastModified Time Father Heart disease [email or web address] Not available 2022 10:20:39 Mother Family history of malignant neoplasm [email or web address] Not available 2022 10:20:48 Mother Blood coagulation disorder Not available 2022 10:20:59 Mother Diabetes mellitus [email or web address] Not available 2022 10:21:08 Notes:Mother 75 yea rs old Father 81 years old 2 Brothers 1 living with DM the other of Brain Tumor Mother Hx Ca of Ovary, DM Father Hx ASHD Medical History Condition Response BLINDNESS N NERVE DISEASE N RHEUMATIC FEVER N BLADDER PROBLEMS N KIDNEY STONES N MRSA N OTHER # 1 N POLIO N LUNG DISEASE/DISORDER N HISTORY OF DRUG ABUSE N RADIATION / CHEMOTHERAPY N COPD N Other # 2 N BLOOD DISEASES N EAR OR HEARING PROBLEMS N MUMPS N SHINGLES N BOWEL PROBLEMS N DEPRESSION (INCLUDING POST ) N STROKE/TIA N ULCERS N BENIGN PROSTATIC HYPERPLASIA N MEASLES N HYPOTENSION N MYOCARDIAL INFARCTION N OBESITY Y GERD/NAUSEA N ANEURYSM N URINARY/BLADDER/KIDNEY PROBLEMS N CORONARY ARTERY DISEASE (CAD) N ADDICTION CONCERNS N ENDOMETRIOSIS N Impotence N USE OF BLOOD THINNERS N SKIN PROBLEMS N GASTROINTESTINAL DISORDER N PERIPHERAL VASCULAR DISEASE N MUSCLE,JOINT OR BONE PROBLEMS N GASTROINTESTINAL BLEEDING N BLOOD CLOTS N ASTHMA N CATARACTS N ERECTILE DYSFUNCTION N VARICOSITIES N GI PROBLEMS N Low Testosterone N INFERTILITY N AIDS/HIV N CHEMOTHERAPY / RADIATION N LIVER DISEASE N MALE HYPOGONADISM N HYPERTENSION Y Deficiency N TOURETTE'S N ANXIETY DISORDER N BLOOD TRANSFUSION N ANEMIA/BLOOD DISORDER N CHRONIC EAR INFECTIONS N BRONCHITIS N TUBERCULOSIS N GLAUCOMA N FOOT PROBLEM N DIVERTICULITIS N CHICKENPOX N SLEEP APNEA N INFECTIOUS DISEASE N HEART ARRHYTHMIA N PROSTATE N INSOMNIA N HIGH CHOLESTEROL / HYPERLIPIDEMIA Y HYPERTHYROIDISM N EYE PROBLEMS Y EDEMA N CHRONIC PAIN SYNDROME N HYPOTHYROIDISM N CAROTID BLOCKAGE N CONSTIPATION N BACK / NECK PROBLEMS N HAVE YOU BEEN HOSPITALIZED OR SEEN IN [facility] IN THE PAST YEAR ? N ATHEROSCLEROSIS N BREAST PROBLEMS N DIALYSIS N [place] N OSTEOPOROSIS N ARTHRITIS N NO SIGNIFICANT PAST MEDICAL HISTORY N APPENDICITIS N DIABETES, TYPE Y BAD TEETH N ENT N HEARTBURN / REFLUX Y AUTISM SPECTRUM DISORDER (ASD) N HEPATITIS / LIVER DISEASE N GOUT N SLEEP DISORDER N ALZHEIMER'S DISEASE N Brain Problems N HERPES N DEMENTIA N HEADACHES/MIGRAINES N SEIZURES/EPILEPSY N VASCULAR DISEASE N PACEMAKER N Blood Disorder N DIZZINESS N HEART DISEASE/HEART PROBLEMS N KIDNEY DISEASE N MULTIPLE SCLEROSIS N CARDIAC ARRHYTHMIA N CANCER: SPECIFY N ATRIAL FIBRILLATION N Gall Stones N PULMONARY EMBOLISM N AUTOIMMUNE DISEASE N Gynecological History Statement/Question Response Date of Last Mammogram Date of Last Colonoscopy 12/08/2016 Most Recent Bone Density Obstetrics History GPAL:G 0 P 0 0 0 0 Immunizations Vaccine Type Date Status Note Provider Den e and Address Organization Details Recorded Time Influenza, high-dose, quadrivalent, PF 3 completed Nayeli Arce MD [address], [address], [place], [address], [place] [facility] 01/18/2023 16:47:53 Influenza, split virus, trivalent, preservative 4 completed Not Available [facility] 05/04/2022 12:59:16 Influenza, split virus, trivalent, preservative 3 completed Not Available [facility] 05/04/2022 12:59:16 SARS-COV-2 (COVID-19) vaccine, UNSPECIFIED 3 completed Not Available [facility] 05/04/2022 12:59:16 SARS-COV-2 (COVID-19) vaccine, UNSPECIFIED 1 completed Not Available [facility] 05/04/2022 12:59:17 SARS-COV-2 (COVID-19) vaccine, UNSPECIFIED 1 completed Not Available [facility] 05/04/2022 12:59:17 SARS-COV-2 (COVID-19) vaccine, UNSPECIFIED 1 completed Not Available [facility] 05/04/2022 12:59:17 influenza, unspecified formulation 2 completed Not Available [facility] 05/04/2022 12:59:17 Influenza, high-dose, quadrivalent, PF 2 completed Not Available [facility] 05/04/2022 12:59:17 Influenza, high-dose, quadrivalent, PF 1 completed Not Available [facility] 05/04/2022 12:59:17 Influenza, high-dose, trivalent, PF 8 completed Not Available [facility] 05/04/2022 12:59:17 pneumococcal polysaccharide PPV23 8 completed Not Available [facility] 05/04/2022 12:59:17 Influenza, high-dose, trivalent, PF 7 completed Not Available [facility] 05/04/2022 12:59:17 Influenza, split virus, quadrivalent, PF 6 completed Not Available [facility] 05/04/2022 12:59:17 Pneumococcal conjugate PCV 13 5 completed Not Available [facility] 05/04/2022 12:59:18 Pneumococcal conjugate PCV20, polysaccharide [id number] conjugate, adjuvant, PF 4 completed Nayeli Arce MD [address], [address], [place], [address], [place] [facility] [employer] 01/31/2024 16:54:35 Influenza, high-dose, trivalent, PF 4 completed Nayeli Arce MD [address], [facility] [address], [place], [address], [place] [employer] 01/31/2024 16:54:35 Past Encounters Encounter ID Performer Location Encounter Start Date Encounter Closed Date Diagnosis/Indication Diagnosis SNOMED-CT Code Diagnosis ICD10 Code Diagnosis Note [id number] [facility] [address] [facility] [address] [place] [address] 09/28/2020 00:00:00 09/28/2020 16:18:12 [id number] [facility] [address] [facility] [facility] [address] [place] [address] 02/15/2021 00:00:00 02/15/2021 16:14:24 [id number] [facility] [address] [address] 06/14/2021 00:00:00 06/14/2021 16:49:03 [id number] [facility] [place] [address] [facility] [address] [place] [address] 06/24/2021 00:00:00 06/28/2021 10:06:37 [id number] [facility] [address] [address] 12/13/2021 00:00:00 12/13/2021 16:19:01 [id number] [facility] [address] [address] 04/27/2022 00:00:00 04/27/2022 16:04:30 [id number] Nayeli Arce MD [facility] [address] [address] 09/14/2022 15:53:33 09/14/2022 16:39:18 Adult health examination 551608682 Z00.00 Screening for disorder 360955420 Z13.9 Essential hypertension 89663934 I10 Pure hypercholesterolemia 542564563 E78.00 Type 2 michael betes mellitus 37042845 E11.9 Gastroesop hageal reflux disease 324990086 K21.9 Neuropathy due to diabetes mellitus 455154585 E11.40 Obese class I 0641502047 28626 E66.9 [id number] Nayeli Arce MD [facility] Internal Med [facility] [address] [address] 01/18/2023 16:17:52 01/18/2023 17:00:33 Administration of influenza vaccine 82511379 Z23 Anemia 001914564 D51.9 Essential hypertension 96743541 I10 Pure hypercholesterolemia 408663398 E78.00 Type 2 michael betes mellitus 09858434 E11.9 [id number] Candelario Prieto MD [facility] [address] [place] [address] 02/01/2023 09:31:31 02/01/2023 13:41:56 Pain in right hip joint 6510046773 30140 M25.154 [id number] Nayeli Arce MD [facility] Internal Med [facility] [address] [address] 05/17/2023 15:48:52 05/17/2023 16:29:03 Chronic pain syndrome 465772553 G89.4 Essential hypertension 77355180 I10 Pure hypercholesterolemia 253883616 E78.00 Type 2 michael betes mellitus without complication 298836089 E11.9 Obese class I 9816778796 17519 E66.9 Gastroesop hageal reflux disease 949001181 K21.9 [id number] Nayeli Arce MD [facility] Internal Med [facility] [address] [address] 09/20/2023 15:51:05 09/20/2023 16:28:52 Adult health examination 544275136 Z00.00 Screening for disorder 434399560 Z13.9 Cobalamin deficiency 190 492376 E53.8 Essential hypertension 03266015 I10 Pure hypercholesterolemia 866686074 E78.00 Type 2 michael betes mellitus without complication 972928331 E11.9 Obese class I 0746669934 78104 E66.9 Neuropathy due to diabetes mellitus 541551425 E11.40 Senile osteoporosis 1804 0001 M81.0 Gastroesop hageal reflux disease 812013133 K21.9 [id number] Nayeli Arce MD [facility] [address] [facility] [address] [place] [address] 01/31/2024 15:54:48 01/31/2024 16:59:13 Anemia 166681008 D51.9 Essential hypertension 60082364 I10 Pure hypercholesterolemia 066710143 E78.00 Type 2 michael betes mellitus without complication 203265768 E11.9 Chronic pain syndrome 37 9659131 G89.4 Obese class I 8958255444 21822 E66.9 Administra tion of pneumococcal vaccine 72304570 Z23 Administra tion of influenza vaccine 97717101 Z23 Health Concerns Section Related Observation LastModified by Organization Detai ls LastModified Time None Recorded Concern Status LastModified by Organization Details LastModified Time None Recorded Advance Directives Directive N: info given previously Payers Encounter Date Sequence Insurance Name Policy Number Policy Xavier Covered Member ID Xavier Member ID Guarantor Name 01/18/2023 1 [employer] (MEDICARE REPLACEMENT HMO) [id number] Joseph Love [id number] Joseph Love 02/01/2023 1 [employer] (MEDICARE REPLACEMENT HMO) [id number] Joseph Love [id number] Joseph Love 05/17/2023 1 [employer] (MEDICARE REPLACEMENT HMO) [id number] Joseph Love [id number] Joseph Love 09/20/2023 1 [employer] (MEDICARE REPLACEMENT HMO) [id number] Joseph Love [id number] Joseph Love 01/31/2024 1 [employer] (MEDICARE REPLACEMENT HMO) [id number] Joseph Love [id number] Joseph Love Notes Date Note Type Note Provider Name and Address Organization Details Recorded Time 3 text/html Patient Name: Joseph LoveDate Of Service: Monday ( 01.18.2023 ): 1950 Age: 72 There has been approximately a 2 lb weight loss since 09/14/2022. This represents approximately a 1.0% change in weight. Weight change attributable to lifestyle changes. Vital Signs:Blood Pressure: Sitting Rt. Arm 132/78Pulse: Sitting 100 /min and RegularRespiratory Rate: 12Height 64 in or 1.6 mWeight 195 lb or 88.5 kgBMI 33.5Temperature: 97 F or 36.1 CPulse Oximetry: 95 % at rest on no oxygen Chief Complaint: Addressed in HPI Problems or conditions discussed in the HPI were the only ones reviewed during the encounter.Only social and family history addressed in the HPI were reviewed during this encounter. Attendant(s): NoneConstitutional and Systemic Symptoms:none Medication Reconciliation: from medication list. History of Present Illness #1. Essential Hypertension: Stage: Stage I Interval Neurological Complaints no headaches. No shortness of breath, orthopnea or cardiovascular symptoms. No other symptoms related to end organ damage. Pressure has been under fair control. Currently normal. No other end organ symptoms or findings. Therapy reviewed regarding management of hypertension and includes salt restriction and Lisinopril. #2. Type II Hypercholesterolaemia: Currently taking medication and tolerating well. No interval complaints of any muscle pain or arthralgia. No significant liver changes with medications. Last lipid panel: fair control. Therapy reviewed regarding treatment of cholesterol management and include diet and Lipitor. #3. Type II Diabetes: Has had no polyuria polyphagia or polydipsia. Has had no hypoglycemic like responses. No new history of any numbness, tingling, weakness or visual problems. No nausea, anorexia or other constitutional symptoms. There has been no foot problems or non healing lesions. The last HAIC was DCCT HAIC: 8.0 Calculated MB mg%. Average blood sugars > 150 mg%. Checking sugars : several times a week Medication Types Include: Sulfonylureas and Insulin Secondary complications include neuropathy. Macro-vascular complications include none. Therapy reviewed regarding diabetic management and include Amaryl and Basaglar Compliance: excellent Renal Protection: MARIANNE inhibitors Lipid management: statins Urinary microalbumin: A1 . Ophthalmological: has seen eye doctor within the last yearMedication List Reviewed and Reconciled 01/18/2023asaglar 100 [IU]/ML INJECTION, SOLUTION 20 Untis Daily AmLisinopril 10 MG (TABLET - ORAL) One Daily For HtnOmeprazole 20 MG (CAPSULE, DELAYED REL PELLETS - ORAL) One DailyAspirin 81 MG One DailyAmaryl 4 MG (TABLET - ORAL) One BidUltram 50 MG (TABLET - ORAL) One Tablet Twice A DayLipitor 40 MG (TABLET - ORAL) Half Tablet DailyCentrum Silver DailyPreservision Vitamins Aereds EyesMetformin 1000 MG TABLET Onbe Twice A DayPotassium Chloride 20 MEQ TABLET, EXTENDED RELEASE Once DailyMagnesium Oxide Twice A DayLasix 20 MG (TABLET - ORAL) One DailyFosamax 70 MG TABLET WeeklyGabapentin 100 MG CAPSULE One TidADRs List Reviewed 01/18/2023Sulfa Drugs RashDarvocet N 100 FlushingKombiglyze Xr VomittingVaccination and Nrbumuqenwpi3915-07 Ivtkgbubs5814-71 Covid Booster Bcpvsn1977-55 Covid Rcdycn4063-90 Nkqnwqrgx9427-84 Prevnar 13 GcSurgical HistoryBilateral Cataracts, Ventral Hernia, Lap Cholecystectomy, Rt. Breast Biopsy, Lt. Breast Biopsy, D&C, Lt. GanglionPreventative Testing Confirmed by [facility]10/18/2022 ALBUMIN 4.2 G/DL N010/18/2022 MICRO ALBUMIN <6.0 MG/L N010/18/2022 HAIC 8.0 % H007/07/2022 MAMMOGRAM /06/2022 DEXA SCAN10/03/2020 LETTER [id number]/21/2017 COLONOSCOPY (10 YEARS) 05/24/2026Social HistoryDoes not smoke cigarettes. 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 HistoryMother 75 years oldFather 81 years old2 Brothers 1 living with DM the other of Brain TumorMother Hx: Ca of Ovary, DMFather Hx: ASHD TEST RESULT RANGE UNITSHEMOGLOBIN A1C Date: 10/18/2022HA1C 8.0 4.0-6.0 %BASIC METABOLIC PANEL Date: 12/14/2022SODIUM 141 137-145 MMOL/LPOTASSIUM 4.0 3.5-5.1 MMOL/LGLUCOSE 170 70-99 MG/DLBUN 19 8-19 MG/DLCREATININE 1.03 0.66-1.25 MG/DLGFR 53CBC/COMPLETE BLD COUNT W/DIFF Date: 10/18/2022WHITE BLOOD CELLS 5.8 4.2-10.8 X10'3/ULHEMOGLOBIN 13.3 12.0-15.6 G/DLHEMATOCRIT 42.0 35.7-45.7 %PLATELETS 248 150-400 X10'3/UL Nayeli Arce MD [address] [facility], [facility] [address], [place], [address], [place] [employer] 01/18/2023 16:54:37 3 text/html patient is a 72-year-old female referred by Dr. Arce for evaluation of her right hip arthritis. She has had pain in the right hip for about 2 years. Is in October, she was clearing debris in her yd was pushing and debris with her right leg and she felt a pop in right groin. She has had pain the lateral and anterolateral hip and anterior thigh with weight-bearing for the last 2 years but symptoms have been worse since. She denies any pain at rest. She owns a cane but only uses it for long distances otherwise she is walking without gait aid. She has a history of peptic ulcers so she avoids nonsteroidal anti-inflammatory medications. She uses Tylenol and tramadol for pain. She has a history of osteoporosis. She takes Actonel. She cannot take calcium because of history of kidney stones. She has a history of extreme obesity past Adrian 398 lb approximately 10 years ago at her peak weight. She has steadily lost weight and her weight is 193 lb today with a BMI of 34.2. She has diabetes and her last hemoglobin A1c was 2 weeks ago and was 8.0. Four weeks before that it was 7.0. She admits that she has been noncompliant and has been eating peanut M and mm. Does get short of breath walking and has balance difficulties. She has chronic swelling in her legs and takes Lasix 20 mg daily. She wears support does. She has tingling in her toes. She takes a baby aspirin a day, lisinopril, limit bromide, Fosamax 70 mg per week, atorvastatin, vitamin B12. The omeprazole. Potassium chloride tablets. She states that she used to have severe problems with her right knee and this was a time we are not taking night and healthcare she recalls so she saw Dr. Corral who advised her she was too heavy for knee replacement at that time. Since she has lost a lot of weight, her right knee no longer bothers her. Candelario Prieto MD [address] [facility], [facility] [address], [place], [address], [place] [employer] 02/01/2023 12:05:45 4 text/html Patient Name: Joseph Kwok Of Service: Monday ( 05.17.2023 ): 1950 Age: 72 There has been approximately a 6.5 lb weight loss since 01/18/2023. This represents approximately a 3.3% change in weight. Weight change attributable to lifestyle changes. Vital Signs:Blood Pressure: Sitting Rt. Arm 120/64Pulse: Sitting 111 /min and RegularRespiratory Rate: 10Height 64 in or 1.6 mWeight 188.5 lb or 85.5 kgBMI 32.4Temperature: 97 F or 36.1 CPulse Oximetry: 95 % at rest on no oxygen Chief Complaint: Addressed in HPI Problems or conditions discussed in the HPI were the only ones reviewed during the encounter.Only social and family history addressed in the HPI were reviewed during this encounter. Attendant(s): NoneConstitutional and Systemic Symptoms:none Medication Reconciliation: from medication list. History of Present Illness #1. Essential Hypertension: Stage: Stage I Interval Neurological Complaints no headaches, dizziness, weakness, visual changes, ataxia, aphasia and apraxia. No shortness of breath, orthopnea or cardiovascular symptoms. No other symptoms related to end organ damage. Pressure has been under fair control. Currently normal. No other end organ symptoms or findings. Therapy reviewed regarding management of hypertension and includes salt restriction and Lisinopril. #2. Type II Hypercholesterolaemia: Currently taking medication and tolerating well. No interval complaints of any muscle pain or arthralgia. No significant liver changes with medications. Last lipid panel: fair control. Therapy reviewed regarding treatment of cholesterol management and include diet and Lipitor. #3. Type II Diabetes: Has had no polyuria polyphagia or polydipsia. Has had no hypoglycemic like responses. No new history of any numbness, tingling, weakness or visual problems. No nausea, anorexia or other constitutional symptoms. There has been no foot problems or non healing lesions. The last HAIC was DCCT HAIC: 8.0 Calculated MB mg%. Average blood sugars > 150 mg%. Checking sugars : several times a week Medication Types Include: Metformin, Sulfonylureas and Insulin Secondary complications include none. Macro-vascular complications include none. Therapy reviewed regarding diabetic management and include Amaryl, Basaglar and Metformin Compliance: good Renal Protection: MARIANNE inhibitors Lipid management: statins Urinary microalbumin: A1 . Ophthalmological: has seen eye doctor within the last year #4. Chronic pain management for chronic lumbar and generalized joint pain Since last examination somewhat improved Interval Testing: noneHas tried NSAIDS partial relief requiring additional medication. Pain Description: intermittent and exacerbated by activity. 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 Current Average Morphine Milligram Approximate Equivalent: 10 mg approximated if taking full dosage daily. Recommend: NA.Benzodiazepines or other hypnotics: no.Alternative pain management modalities (acupuncture - behavior therapy- additional PT - SNRIs) have been discussed and have either been tried in the past or not acceptable alternatives to patient or not available in our location.Will kept medications the same.Urine Testing: will be performed and patient instructed that failure of testing within a 24 hour period from time of order may result in termination of medication.Controlled substance database no. Pill counts when available have been acceptable. No other signs of any abuse.Patient reports condition is stable and is able to function with the medication. Denies any misuse or adverse effects.TREATMENT OBJECTIVE: Enhance ability to manage pain independently, improved function and sustain quality of life. Recommendations or alternative therapies and lifestyle changes are discussed on each visit. Has shown improvement inf functionality. Has been educated on the side effects,risks and any black box warnings. Has verbalized the dangers of some of the medications regarding driving and cooperating heavy machinery and have advised against this. #5. Hx of obesity. Currently Class 1 Obesity BMI 30-34.99. Has tried numerous dietary support and supplements with no benefit. Instructed on the health consequences of the obese status particularly cancer - diabetes and heart disease. Discussed new modalities of weight loss including GLP-1 medications that are used to treat diabetes. Potential candidate for bariatric surgery: No. Wishes to be evaluated by Dietary: No and was offered to be evaluated and instructed by horizontal drill operator on weight loss diet.#6. History of GERD currently taking omeprazole doing well. Interval complaint of any exacerbation of any upper endoscopy symptoms from GERD. Tolerating medications well. Active Medication ListBasaglar 100 [IU]/ML INJECTION, SOLUTION 26 Untis Daily AmLisinopril 10 MG (TABLET - ORAL) One Daily For HtnOmeprazole 20 MG (CAPSULE, DELAYED REL PELLETS - ORAL) One DailyAspirin 81 MG One DailyAmaryl 4 MG (TABLET - ORAL) One BidUltram 50 MG (TABLET - ORAL) One Tablet Twice A DayLipitor 40 MG (TABLET - ORAL) Half Tablet DailyCentrum Silver DailyPreservision Vitamins Aereds EyesMetformin 1000 MG TABLET Onbe Twice A DayPotassium Chloride 20 MEQ TABLET, EXTENDED RELEASE Once DailyMagnesium Oxide Twice A DayLasix 20 MG (TABLET - ORAL) One DailyFosamax 70 MG TABLET WeeklyGabapentin 100 MG CAPSULE One Tid Adverse Drug Reactions ReviewedSulfa Drugs RashDarvocet N 100 FlushingKombiglyze Xr Vomitting Vaccination and Dgkjkxvkewcu5752-68 Umrijndpt6646-66 Covid Booster Ymmqwq9085-51 Covid Qurtds8324-14 Hcjamxswp2263-10 Prevnar 13 Gc Surgical Btzbnbg7134-48 Bilateral Smdlieycv0620-17 Ventral Azqymy9241-73 Lap Gnytwkmouoqnpps2271-23 Rt. Breast Ddqnro9498-40 Lt. Breast Krggfg6313-30 D&K2287-06 Lt. Ganglion Preventative Spxsmhc4501/18/2023 HAIC 8.0 % H010/18/2022 ALBUMIN 4.2 G/DL N010/18/2022 MICRO ALBUMIN <6.0 MG/L N007/07/2022 MAMMOGRAM DEXA SCAN10/03/2020 [id number]/21/2017 COLONOSCOPY (10 YEARS) 05/24/2026 Social HistoryDoes not smoke cigarettes. 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 This represents approximately a 1.9% change in weight. Weight change attributable to lifestyle changes. Vital Signs:Blood Pressure: Sitting Rt. Arm 124/74Pulse: Sitting 110 /min and RegularRespiratory Rate: 14Height 64 in or 1.6 mWeight 185 lb or 83.9 kgBMI 31.8Temperature: 97.2 F or 36.2 CPulse Oximetry: 96 % at rest on no oxygen Chief Complaint: Addressed in HPI Problems or conditions discussed in the HPI were the only ones reviewed during the encounter.Only social and family history addressed in the HPI were reviewed during this encounter. A significant, separate E/M service was performed to evaluate the current and new problems. Attendant(s): NoneConstitutional and Systemic Symptoms:none Medication Reconciliation: from medication list. History of Present Illness Reviewed the findings of the preventative health visit. Addressed all areas with the patient, patient's family or caregivers. Preventative examinations and testing immunizations - vaccinations, colonic neoplasm screening, mammograms and DEXA Scan all reviewed and ordered where patient was amenable to the recommendations. Cognitive function was normal. Depression addressed and where necessary medications were adjusted or instituted. End of life and living will briefly discussed with patient and where these can be filled out and legally executed. Other blood and imaging studies were ordered if considered necessary. Other recommendations may be found in the encounter note. #1. Essential Hypertension: Stage: normal Interval Neurological Complaints no headaches, dizziness, weakness, visual changes, ataxia, aphasia and apraxia. No shortness of breath, orthopnea or cardiovascular symptoms. No other symptoms related to end organ damage. Pressure has been under excellent control. Currently normal. No other end organ symptoms or findings. Therapy reviewed regarding management of hypertension and includes salt restriction and Lisinopril. #2. Type II Hypercholesterolaemia: Currently taking medication and tolerating well. No interval complaints of any muscle pain or arthralgia. No significant liver changes with medications. Last lipid panel: fair control. Therapy reviewed regarding treatment of cholesterol management and include diet and Lipitor. #3. Type II Diabetes: Has had no polyuria polyphagia or polydipsia. Has had no hypoglycemic like responses. No new history of any numbness, tingling, weakness or visual problems. No nausea, anorexia or other constitutional symptoms. There has been no foot problems or non healing lesions. The last HAIC was DCCT HAIC: 8.0 Calculated MB mg%. Average blood sugars 100-115 mg%. Checking sugars : several times a week Medication Types Include: Sulfonylureas and Insulin Secondary complications include neuropathy. Macro-vascular complications include none. Therapy reviewed regarding diabetic management and include Amaryl and Basaglar Compliance: good Renal Protection: MARIANNE inhibitors Lipid management: statins Urinary microalbumin: A1 . Ophthalmological: has seen eye doctor within the last year #4. Neuropathy: History of neuropathy involving both legs. No interval complaints of any increasing numbness, tingling, weakness or ataxia. ADL: no limitations Number(s) of falls: none since last examination. Using support device: walker Medication: Gabapentin. #5. Hx of obesity. Currently Class 1 Obesity BMI 30-34.99. Has tried numerous dietary support and supplements with no benefit. Instructed on the health consequences of the obese status particularly cancer - diabetes and heart disease. Discussed other modalities of weight loss no. Potential candidate for bariatric surgery: No. Wishes to be evaluated by Dietary: No and was offered to be evaluated and instructed by horizontal drill operator on weight loss diet.#6. Senile osteoporosis currently taking Fosamax as well as calcium and vitamin-D supplementation. Has had a recent bone density scan.#7. GERD clinically stable still on omeprazole. Will need to check a B12 and magnesium level because of prolonged use of PPI inhibitors. Clinically doing well. Active Medication ListBasaglar 100 IU/ML INJECTION, SOLUTION 26 Untis Daily AmLisinopril 10 MG (TABLET - ORAL) One Daily For HtnOmeprazole 20 MG (CAPSULE, DELAYED REL PELLETS - ORAL) One DailyAspirin 81 MG One DailyAmaryl 4 MG (TABLET - ORAL) One BidUltram 50 MG (TABLET - ORAL) One Tablet Twice A DayLipitor 40 MG (TABLET - ORAL) Half Tablet DailyCentrum Silver DailyPreservision Vitamins Aereds EyesMetformin 1000 MG TABLET Onbe Twice A DayPotassium Chloride 20 MEQ TABLET, EXTENDED RELEASE Once DailyMagnesium Oxide Twice A DayLasix 20 MG (TABLET - ORAL) One DailyFosamax 70 MG TABLET WeeklyGabapentin 100 MG CAPSULE One Tid Adverse Drug Reactions ReviewedSulfa Drugs RashDarvocet N 100 FlushingKombiglyze Xr Vomitting Vaccination and Aytvwrklhetq7254-29 Fzietzrbm8299-90 Covid Booster Nqhugz5012-36 Covid Ojogua1906-25 Xafabttnk3018-27 Prevnar 13 Gc Surgical Rafixwz2278-15 Bilateral Snllizisu2517-37 Ventral Vrqbfp6528-85 Lap Pfvdigsjzsxeamm1623-48 Rt. Breast Lxadvw2801-70 Lt. Breast Cpzaan7375-77 D&Q9966-34 Lt. Ganglion Preventative Gcuwsru4901/18/2023 HAIC 8.0 % H010/18/2022 ALBUMIN 4.2 G/DL N010/18/2022 MICRO ALBUMIN <6.0 MG/L N007/07/2022 MAMMOGRAM /06/2022 DEXA SCAN10/03/2020 XTACUAUOUHTVH22/21/2017 COLONOSCOPY (10 YEARS) 05/24/2026 Social HistoryDoes not smoke cigarettes. 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 This represents approximately a 1.6% change in weight. Weight change attributable to lifestyle changes. Vital Signs:Blood Pressure: Sitting Rt. Arm 140/60Pulse: Sitting 66 /min and RegularRespiratory Rate: 16Height 66 in or 1.7 mWeight 188 lb or 85.3 kgBMI 30.3Temperature: 97 F or 36.1 CPulse Oximetry: 98 % at rest on no oxygen Chief Complaint: Addressed in HPI Problems or conditions discussed in the HPI were the only ones reviewed during the encounter.Only social and family history addressed in the HPI were reviewed during this encounter. Attendant(s): NoneConstitutional and Systemic Symptoms:none Medication Reconciliation: from medication list. History of Present Illness #1. Essential Hypertension: Stage: Stage I Interval Neurological Complaints no headaches, dizziness, weakness, visual changes, ataxia, aphasia and apraxia. No shortness of breath, orthopnea or cardiovascular symptoms. No other symptoms related to end organ damage. Pressure has been under excellent control. Currently normal. No other end organ symptoms or findings. Therapy reviewed regarding management of hypertension and includes salt restriction and Lisinopril. #2. Type II Hypercholesterolaemia: Currently taking medication and tolerating well. No interval complaints of any muscle pain or arthralgia. No significant liver changes with medications. Last lipid panel: fair control. Therapy reviewed regarding treatment of cholesterol management and include diet and Lipitor. #3. Type II Diabetes: Has had no polyuria polyphagia or polydipsia. Has had no hypoglycemic like responses. No new history of any numbness, tingling, weakness or visual problems. No nausea, anorexia or other constitutional symptoms. There has been no foot problems or non healing lesions. The last HAIC was DCCT HAIC: 8.0 Calculated MB mg%. CGM: No. Average blood sugars unknown. Checking sugars : several times a week. Medication Types Include: Metformin, Sulfonylureas and Insulin Secondary complications include none. Macro-vascular complications include none. Therapy reviewed regarding diabetic management and include Amaryl, Basaglar and Metformin Compliance: good Renal Protection: MARIANNE inhibitors Lipid management: statins Urinary microalbumin: A1 . Ophthalmological: has seen eye doctor within the last year. Control: Intermediate Control 7.1 - 8.0 #4. Chronic pain management for chronic generalized joint pain Since last examination no significant change since last examination Interval Testing: noneHas tried NSAIDS partial relief requiring additional medication. Pain Description: constant and exacerbated by activity. Currently seeing or has seen in the past a Loader Operator Supervisor: No .Pain - Enjoyment of Life - General Activity ScalePain on Average: 4Enjoyment of Live: 5General Activity: 4Enjoyment of Life - General Activity Scale: 4Currently regimen consists of medications as prescribed with no evidence of abuse or self prescribing. Current Average Morphine Milligram Approximate Equivalent: 10 mg approximated if taking full dosage daily. Recommend: NA.Benzodiazepines or other hypnotics: no.Alternative pain management modalities (acupuncture - behavior therapy- additional PT - SNRIs) have been discussed and have either been tried in the past or not acceptable alternatives to patient or not available in our location.Will kept medications the same.Urine Testing: not indicated and this time.Controlled substance database yes and no discrepancies or multiple prescribers noted. Pill counts when available have been acceptable. No other signs of any abuse.Patient reports condition is stable and is able to function with the medication. Denies any misuse or adverse effects.TREATMENT OBJECTIVE: Enhance ability to manage pain independently, improved function and sustain quality of life. Recommendations or alternative therapies and lifestyle changes are discussed on each visit. Has shown improvement inf functionality. Has been educated on the side effects,risks and any black box warnings. Has verbalized the dangers of some of the medications regarding driving and cooperating heavy machinery and have advised against this. #5. Hx of obesity. Currently Class 1 Obesity BMI 30-34.99. Has tried numerous dietary support and supplements with no benefit. Instructed on the health consequences of the obese status particularly cancer - diabetes and heart disease. Discussed other modalities of weight loss no . Potential candidate for bariatric surgery: No. Wishes to be evaluated by Dietary: No and was offered to be evaluated and instructed by horizontal drill operator on weight loss diet. Active Medication ListBasaglar 100 IU/ML INJECTION, SOLUTION 26 Untis Daily AmLisinopril 10 MG (TABLET - ORAL) One Daily For HtnOmeprazole 20 MG (CAPSULE, DELAYED REL PELLETS - ORAL) One DailyAspirin 81 MG One DailyAmaryl 4 MG (TABLET - ORAL) One BidUltram 50 MG (TABLET - ORAL) One Tablet Twice A DayLipitor 40 MG (TABLET - ORAL) Half Tablet DailyCentrum Silver DailyPreservision Vitamins Aereds EyesMetformin 1000 MG TABLET Onbe Twice A DayPotassium Chloride 20 MEQ TABLET, EXTENDED RELEASE Once DailyMagnesium Oxide Twice A DayLasix 20 MG (TABLET - ORAL) One DailyFosamax 70 MG TABLET WeeklyGabapentin 100 MG CAPSULE One Tid Adverse Drug Reactions ReviewedSulfa Drugs RashDarvocet N 100 FlushingKombiglyze Xr Vomitting Vaccination and Immunization(X) 2022- INFLUENZA( ) 2014- PREVNAR 13 GC(X) 2017- PNEUMOVAX PREVNAR 20 Needed( ) 2020- COVID PFIZER(X) 2022- COVID BOOSTER PFIZER Surgical Znnzswo1060-65 Bilateral Dieocohxx0479-68 Ventral Rlcqjv1765-35 Lap Putqryitbcoxeuj3254-30 Rt. Breast Nwynob1336-67 Lt. Breast Qakgaa6965-54 D&Y2772-98 Lt. Ganglion Preventative Testing( ) 12/12/2023 Optometry( ) 09/21/2023 Albumin 4.3 G/DL( ) 09/21/2023 Micro Albumin 30.4 MG/L H( ) 09/21/2023 HAIC 8.0 % H( ) 07/07/2022 Mammogram 07/07/2024( ) 07/07/2022 DEXA Scan 07/07/2024( ) 10/03/2020 Ophthalmology( ) 05/24/2016 Colonoscopy (10 Years) 05/24/2026 Social HistoryDoes not smoke cigarettes. 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
[2024-05-11 11:35] LABS: Basophils Absolute Auto 0.1 K/mm3 (0.0-0.1); Basophils Percent Auto 0.4 % (0.2-1.2); Eosinophils Percent Auto 0.1 % (0-4.4); Hematocrit 39.3 % (37.0-47.0); Hemoglobin 12.9 g/dL (12.0-15.0); Immature Granulocyte Absolute 0.11 K/mm3 (0.00-0.031); Immature Granulocyte Percent A 0.9 % (0-0.5); Lymphocytes Absolute Auto 1.05 K/mm3 (0.9-3.2); Lymphocytes Percent Auto 8.4 % (18.3-44.2); Mean Corpuscular HGB Conc 32.8 g/dl (32-36); Mean Corpuscular Hemoglobin 28.2 pg (26-34); Mean Corpuscular Volume 85.8 fl (80-100); Mean Platelet Volume 9.7 fl (7.4-10.4); Monocytes Absolute Auto 1.1 K/mm3 (0.1-0.6); Monocytes Percent Auto 8.9 % (2.6-8.5); Neutrophils Absolute Auto 10.2 K/mm3 (1.3-6.7); Neutrophils Percent Auto 81.3 % (45.5-73.1); Platelet Count Result 413 k/mm3 (150-375); Red Blood Count 4.58 M/mm3 (4.2-5.4); Red Cell Distribution Width 14.4 % (11.5-14.5); White Blood Count 12.5 K/mm3 (4.5-10.0)
[2024-05-11 11:41] LABS: Add Urine Microscopic? YES; Appearance Urine Clear (Clear); Bacteria Urine None Seen /hpf; Bilirubin Urine Negative (Negative); Blood Urine Negative (Negative); Color Urine Yellow (Yellow); Glucose Urine UA Negative (Negative); Ketones Urine 4+ mg/dL (Negative); Leukocyte Esterase Ur Negative LEU/UL (Negative); Nitrate Urine Negative (Negative); Non Pathogenic Casts 0-2; Protein Urine 1+ mg/dL (Negative); Specific Grav Ur 1.027 (1.001-1.035); Squamous Epithelial Cell Urine Occasional /hpf (Few); Urobilinogen Urine 0.2 mg/dL (<2.0); WBC Urine 0-5 /hpf (0-3)
[2024-05-11] MEDS: SODIUM CHLORIDE 0.9% IV 1,000 ML 999 ML IV CONT ×2 (11:43→13:05)
[2024-05-11 11:47] LABS: INR 1.1; Prothrombin Time 14.7 Seconds (11.1-14.7)
[2024-05-11 11:48] LABS: Partial Thromboplastin Time 27.7 Seconds (22.3-36.8)
[2024-05-11 11:50] LABS: Albumin Level 2.9 g/dL (3.5-5.1); Ammonia < 9 umol/L (9-30); Carbon Dioxide 18 mmol/L (22-30); Chloride 107 mmol/L (98-107); Ethanol < 10 mg/dL (<10); Glucose 241 mg/dL (65-110); Lactic Acid Reflex 1.8 mmol/L (0.7-2.0)
[2024-05-11 11:51] LABS: Alanine Aminotransferase 28 U/L (6-35); Alkaline Phosphatase 81 U/L (38-126); Aspartate Amino Transferase 38 U/L (14-36); Creatine Kinase 559 U/L (30-135); Estimated CRCL calculation 45 ml/min; Estimated Glomerular Filt Rate > 60
[2024-05-11 11:54] LABS: Amphetamine Screen Urine Negative (Negative); Barbiturate Screen Urine Negative (Negative); Benzodiazepines Screen Urine Negative (Negative); Cannabinoid Screen Urine Negative (Negative); Cocaine Screen Urine Negative (Negative); Methadone Screen Urine Negative (Negative); Opiate Screen Urine Negative (Negative); Phencyclidine Screen Urine Negative (Negative)
[2024-05-11 11:56] LABS: Anion Gap 16 mmol/L (4-12); Bilirubin,Total 0.6 mg/dL (0.2-1.3); Blood Urea Nitrogen 32 mg/dL (7-17); Calcium 8.7 mg/dL (8.4-10.2); Lipase 121 U/L (23-300); Magnesium 1.1 mg/dL (1.6-2.3); Potassium 4.1 mmol/L (3.4-5.0); Sodium 141 mmol/L (137-145)
[2024-05-11 12:02] LABS: Troponin I 0.015 ng/mL (0.000-0.034)
[2024-05-11 12:12] LABS: Influenza A QL RT-PCR Negative (Negative); Influenza B QL RT-PCR Negative (Negative); SARS-CoV-2 RNA PCR Negative (Negative)
[2024-05-11] MEDS: MAGNESIUM SULF 4 GM/WATER100ML 4 GM/100 ML BAG IVPB (12:20)
[2024-05-11] MEDS: SODIUM CHLORIDE 0.9% IV 1,000 ML 125 ML IV CONT ×2 (14:37→22:26)
--- NOTE | 2024-05-11 14:49 | P.HP_ITS ---
H&P: HPI History of Present Illness Date/Time: 05/11/24 14:49 Chief Complaint: Found down with altered mental status Narrative: 73-year-old female found down covered in stool at her house by EMS with altered mental status. Her lab work in the ED showed leukocytosis at 12.5, anion gap is 16, carbon dioxide 18, BUN of 32, glucose of 124, magnesium of 1.1, CK of 559, UA negative for infection, ethanol level negative, tox screen negative, influenza A/B and RSV negative. Head CT showed no acute findings, C-spine showed severe cervical spondylosis and Multinodular goiter extending into the mediastinum. CT abdomen chest pelvis showed the goiter and bilateral nonobstructing kidney stones. EKG shows sinus tachycardia at 142. In the ED the patient received 2 L fluid bolus and 4 g of magnesium. Per EMS the patient was a hoarder and she had to be taken out through her window because they could not open the front door. They also noted that there was bottles full of urine. Patient will need placement. Review of Systems Review of Systems: ROS unobtainable: Yes unobtainable due to mental status Meds Home Medications and Allergies Allergies Allergy/AdvReac Type Severity Reaction Status Date / Time No Known Allergies Allergy Verified 05/11/24 11:43 Vital Signs Vital Signs - 24 hr 05/11/24 11:15 05/11/24 11:34 05/11/24 13:49 Pulse Rate 145 H 126 H Respiratory Rate 19 16 19 Blood Pressure 142/112 H 134/74 Pulse Oximetry 98 98 100 Oxygen Delivery Room Air Exam Narrative: General: well appearing, appears stated age. HEENT: normocephalic, atraumatic. Mucous membranes moist. EOMI, PERRLA, bilateral sclera anicteric, no conjunctival injection. Neck supple without JVD, lymphadenopathy, or bruit. eye proptosis Respiratory: clear to ascultation bilaterally. No rales/rhonic/wheezes. Cardiovascular: Regular rate and rhythm, normal S1-S2 upon ascultation. No murmurs, rubs, or clicks. PMI is nondisplaced, capillary refill less than 3 second. Abdomen: Soft, round, no pulsatile masses, nondistended and nontender. No gianna ound, no guarding. No CVA tenderness, no hepatosplenomegaly. Bowel sounds present to all four quadrants. No high pitch or tinkling sounds, resonant to percussion. Extremities: No cyanosis, clubbing, or edema present. Pulses are palpable 2/2. Active ROM to all four extremities. Neuro: Alert and orientated x 1. PERRLA. follows comands Skin: Warm, dry, and intact, without rash, erythema, or lesion. Psych: pleasant, cooperative, normal speech, normal affect, no hallucinations, no dysarthia H&P: Results Labs Labs: Short CBC 05/11/24 Range/Units 11:28 WBC 12.5 H (4.5-10.0) K/mm3 Hgb 12.9 (12.0-15.0) g/dL Hct 39.3 (37.0-47.0) % Plt Count 413 H (150-375) k/mm3 BMP 05/11/24 11:28 Sodium 141 Potassium 4.1 Chloride 107 Carbon Dioxide 18 L BUN 32 H Creatinine 0.78 Glucose 241 H Calcium 8.7 Cardiac Enzymes 05/11/24 Range/Units 11:28 Total Creatine Kinase 559 H (30-135) U/L Troponin I 0.015 (0.000-0.034) ng/mL Liver Function 05/11/24 Range/Units 11:28 Total Bilirubin 0.6 (0.2-1.3) mg/dL AST 38 H (14-36) U/L ALT 28 (6-35) U/L Alkaline Phosphatase 81 (38-126) U/L Albumin 2.9 L (3.5-5.1) g/dL Urine 05/11/24 Range/Units 11:27 Urine Color Yellow (Yellow) Urine Appearance Clear (Clear) Urine pH 6.0 (5.0-9.0) Ur Specific [place] 1.027 (1.001-1.035) Urine Protein 1+ H (Negative) mg/dL Urine Glucose (UA) Negative (Negative) mg/dL Assessment and Plan Assessment and plan (1) Altered mental status: Code(s): R41.82 - Altered mental status, unspecified Status: Acute Assessment and Plan: Unknown cause UA negative for acute infection CT head negative for acute process CT chest abdomen pelvis negative for acute process Ethanol level negative Toxicology screen negative CT neck with goiter (2) Leukocytosis: Code(s): D72.829 - Elevated white blood cell count, unspecified Status: Acute Assessment and Plan: Daily CBC No antibiotics indicated at this time (3) Goiter: Code(s): E04.9 - Nontoxic goiter, unspecified Status: Acute Assessment and Plan: TSH low, T3-T4 normal TPAb pending Thyroid ultrasound pending Atenolol control heart rate (4) Fall: Code(s): W19.XXXA - Unspecified fall, initial encounter Status: Acute Assessment and Plan: PT OT evaluate and treat (5) Rhabdomyolysis: Code(s): M62.82 - Rhabdomyolysis Status: Acute Assessment and Plan: IV fluids for hydration Repeat EKG in a.m. (6) Self neglect: Code(s): R46.89 - Other symptoms and signs involving appearance and behavior Status: Acute Assessment and Plan: Case management consulted (7) Erythema: Code(s): L53.9 - Erythematous condition, unspecified Status: Acute Assessment and Plan: Wound care consulted for possible pressure ulcers Quality VTE Prophylaxis VTE prophylaxis: mechanical ordered and pharmacologic ordered Hospitalist MIPS Advance Care Plan I have confirmed that the patient's Advanced Care Plan is present, code status is documented, or surrogate decision maker is listed in patient medical record.: Yes Medication Reconciliation I have utilized all available resources to obtain, update and review the patients current medications (includes all prescriptions, OTC, herbals, cannabis, and nutritional supplements).: Yes
--- NOTE | 2024-05-11 15:18 | ED.GENADULT ---
HPI - General Adult General Chief complaint: Unspecified Stated complaint: ON FLOOR FOR DAYS Source: patient, family, EMS, RN notes reviewed and old records reviewed Mode of arrival: EMS Limitations: altered mental status History of Present Illness HPI narrative: This is 73 year old female with history of DM who presents from home. EMS states friends and family had not heard from her so they went to check on her today. She was found on ground confused and covered in feces. IT is unclear when someone last spoke with her. She is oriented to person only. She is unable to provide history due to her confusion. [place]. She states she is 53 years old. Related Data Allergies Allergy/AdvReac Type Severity Reaction Status Date / Time No Known Allergies Allergy Verified 05/11/24 11:43 Review of Systems Review of Systems: ROS unobtainable: Yes unobtainable due to mental status PMFSH Past Medical History Medical History (Updated 05/11/24 @ 21:18 by Geovanna Naranjo MD) Diabetes Surgical History Surgical History (Updated 05/11/24 @ 20:07 by Geovanna Naranjo MD) Surgical history unknown Social History Social History (Updated 05/11/24 @ 20:07 by Geovanna Naranjo MD) Smoking status: Smoker, status unknown Exam Const: General: confusion and ill appearing Limitations: altered mental status Other: oriented to person HENMT: Face and sinus: sinuses nontender Mouth: Yes dry mucous membranes Teeth and gingiva: abnormal tooth and associated gingiva Throat: uvula midline Eyes: Pupils: Equal, round and reactive pupils present EOM: EOMs intact bilaterally Resp: Effort & Inspection: normal respiratory effort Auscultation: clear to auscultation bilaterally Cardio: Rate: tachycardic Rhythm: regular rhythm Heart sounds: Murmur heart sound present GI: GI Palp: Yes Soft to palpation, No Tenderness to palpation present (GI), No Guarding due to palpation present (GI) and No Rigid due to palpation Auscultation: normal bowel sounds Skin: Wounds: wounds noted (left back wound approximately 10 x 3 cm , dry, no drainage) Neuro: General: moves all extremities Other: oriented to person, generalized weakness present Extrem: General: no pedal edema Other: ecchymosis to bilateral lower extremit Course Reevaluation(s) Reevaluation #1: Patient sister and niece are at bedside. They report she is a hoarder. I Discussed that she has been found to have low magnesium and dehydration. She has been given IVF and magnesium replacement. She will be admitted to hospital and she will likely need placement. Date: 05/11/24 Time: 15:00 Consultations Consultation #1: I discussed case with Molly with hospitalist service. She accepts patient to IMU. Date: 05/11/24 Time: 14:00 Vital Signs Vital signs: Vital Signs Pulse Rate 145 H 05/11/24 11:15 Respiratory Rate 19 05/11/24 11:15 Blood Pressure 142/112 H 05/11/24 11:15 Pulse Oximetry 98 05/11/24 11:15 Oxygen Delivery Room Air 05/11/24 11:15 Pulse Rate 135 H 05/11/24 18:51 Respiratory Rate 20 05/11/24 18:51 Blood Pressure 123/66 05/11/24 18:51 Pulse Oximetry 96 05/11/24 18:51 Oxygen Delivery Room Air 05/11/24 11:15 Medical Decision Making Vital Signs Vital Signs: Vital Signs Pulse Rate 145 H 05/11/24 11:15 Respiratory Rate 19 05/11/24 11:15 Blood Pressure 142/112 H 05/11/24 11:15 Pulse Oximetry 98 05/11/24 11:15 Oxygen Delivery Room Air 05/11/24 11:15 Pulse Rate 135 H 05/11/24 18:51 Respiratory Rate 20 05/11/24 18:51 Blood Pressure 123/66 05/11/24 18:51 Pulse Oximetry 96 05/11/24 18:51 Oxygen Delivery Room Air 05/11/24 11:15 Lab Data Lab results reviewed: Yes I reviewed the patient's lab results. 05/11/24 11:28 05/11/24 11:28 Labs: Lab Results 05/11/24 05/11/24 05/11/24 Range/Units 11:19 11:27 11:28 WBC 12.5 H (4.5-10.0) K/mm3 RBC 4.58 (4.2-5.4) M/mm3 Hgb 12.9 (12.0-15.0) g/dL Hct 39.3 (37.0-47.0) % MCV 85.8 (80-100) fl MCH 28.2 (26-34) pg MCHC 32.8 (32-36) g/dl RDW 14.4 (11.5-14.5) % Plt Count 413 H (150-375) k/mm3 MPV 9.7 (7.4-10.4) fl Immature Gran % (Auto) 0.9 H (0-0.5) % Neut % (Auto) 81.3 H (45.5-73.1) % Lymph % (Auto) 8.4 L (18.3-44.2) % [place] % (Auto) 8.9 H (2.6-8.5) % Eos % (Auto) 0.1 (0-4.4) % Baso % (Auto) 0.4 (0.2-1.2) % Lymph # (Auto) 1.05 (0.9-3.2) K/mm3 [place] # (Auto) 1.1 H (0.1-0.6) K/mm3 Eos # (Auto) 0.0 (0-0.3) K/mm3 Baso # (Auto) 0.1 (0.0-0.1) K/mm3 Abs Immat Gran (auto) 0.11 H (0.00-0.031) K/mm3 Absolute Neuts (auto) 10.2 H (1.3-6.7) K/mm3 Absolute Nucleated RBC 0.000 (0.0-0.012) K/mm3 Nucleated RBC % 0.0 (0.0-0.2) % PT 14.7 (11.1-14.7) Seconds INR 1.1 APTT 27.7 (22.3-36.8) Seconds Sodium 141 (137-145) mmol/L Potassium 4.1 (3.4-5.0) mmol/L Chloride 107 (98-107) mmol/L Carbon Dioxide 18 L (22-30) mmol/L Anion Gap 16 H (4-12) mmol/L BUN 32 H (7-17) mg/dL Creatinine 0.78 (0.7-1.0) mg/dL Estim Creat Clear Calc 45 ml/min Estimated GFR > 60 (59 - ) Glucose 241 H (65-110) mg/dL POC Capillary Glucose 212 H (65-105) mg/dl Lactic Acid 1.8 (0.7-2.0) mmol/L Calcium 8.7 (8.4-10.2) mg/dL Magnesium 1.1 L (1.6-2.3) mg/dL Total Bilirubin 0.6 (0.2-1.3) mg/dL AST 38 H (14-36) U/L ALT 28 (6-35) U/L Alkaline Phosphatase 81 (38-126) U/L Ammonia < 9 L (9-30) umol/L Total Creatine Kinase 559 H (30-135) U/L Troponin I 0.015 (0.000-0.034) ng/mL Total Protein 5.0 L (6.3-8.2) g/dL Albumin 2.9 L (3.5-5.1) g/dL Lipase 121 (23-300) U/L TSH (Reflex) < 0.015 L (0.465-4.68) uIU/mL Free T4 2.36 H (0.78-2.19) ng/dL Urine Color Yellow (Yellow) Urine Appearance Clear (Clear) Urine pH 6.0 (5.0-9.0) Ur Specific [place] 1.027 (1.001-1.035) Urine Protein 1+ H (Negative) mg/dL Urine Glucose (UA) Negative (Negative) mg/dL Urine Ketones 4+ H (Negative) mg/dL Ur Blood (Man) Negative (Negative) Urine Nitrate Negative (Negative) Urine Bilirubin Negative (Negative) Urine Urobilinogen 0.2 (<2.0) mg/dL Leukocyte Esterase Rfl Negative (Negative) TAMMY/UL Urine RBC 3-5 H (0-2) /hpf Urine WBC 0-5 (0-3) /hpf Ur Squamous Epith Cells Occasional (Few) /hpf Urine Bacteria None seen /hpf Urine Casts 0-2 Urine Opiates Screen Negative (Negative) Urine Methadone Screen Negative (Negative) Ur Barbiturates Screen Negative (Negative) Ur Phencyclidine Scrn Negative (Negative) Ur Amphetamine Screen Negative (Negative) U Benzodiazepines Scrn Negative (Negative) Urine Cocaine Screen Negative (Negative) U Cannabinoids Screen Negative (Negative) Ethyl Alcohol < 10 (<10) mg/dL Influenza A (RT-PCR) Negative (Negative) Influenza B (RT-PCR) Negative (Negative) SARS-CoV-2 RNA (RT-PCR) Negative (Negative) Imaging Data Radiologist's impression: ITS Impressions Chest X-Ray 05/11/24 11:38 IMPRESSION: 1. Widening of the superior mediastinum, which may be seen with lipomatosis or a tortuous aorta. Malignancy is not excluded. Chest CT is recommended if this area is not included on the pending cervical spine CT. Head CT 05/11/24 12:06 IMPRESSION: 1. Normal aging brain. Chest/Abdomen/Pelvis CT 05/11/24 12:07 IMPRESSION: 1. Multinodular goiter extending into the mediastinum correlating with the chest radiograph abnormality. 2. Bilateral nonobstructing kidney stones. Cervical Spine CT 05/11/24 12:13 IMPRESSION: 1. No fracture. 2. Severe cervical spondylosis. 3. Multinodular goiter extending into the mediastinum. Critical Care Time Critical Care Time Critical Care Time: Yes Total Critical Care Time: 35 Discharge Plan Discharge Clinical Impression: Acute encephalopathy, Hypomagnesemia Patient Disposition: Still a Patient Condition: Guarded Prognosis
[2024-05-11 16:20] LABS: Free T4 Free Thyroxine 1.94 ng/dL (0.78-2.19)
[2024-05-11 16:20] LABS: Free T3 3.68 pg/mL (2.45-5.93)
[2024-05-11 17:25] LABS: Thyroid Stimulating Hormone Reflex < 0.015 uIU/mL (0.465-4.68)
--- OUTSIDE RECORDS SUMMARY | 2024-05-11 18:37 | XMS_ITS | Referral Summary ---
Author Organization [facility] Address [address] [place] [address] Care Team Providers Care Devops Architect Name Role Phone Javi Arce MD Primary [...] 8 Active vitamins A,C,E-zinc-adolfo er (PRESERVISION AREDS) [id number] qkqo-sy-mvlq capsule Take according to aggb-bsb-dpufff r package directions 0 0 8 Active multivitamin tablet tablet Take according to qyvd-uxn-xlkctf r package directions 0 0 8 Active [...] Atorvastatin Assessment & Plan (03/19/2020 2:33 PM FIRE SPRINKLER DESIGNER): Goal of treatment , LDL cholesterol less [...] therapy Assessment & Plan (01/23/2018 2:34 PM FIRE SPRINKLER DESIGNER): Goal of treatment , LDL cholesterol less [...] agents Assessment & Plan (03/19/2020 2:35 PM FIRE SPRINKLER DESIGNER): Hba1c was Lab Results Component Value Date [...] Metformin Assessment & Plan (01/23/2018 2:32 PM FIRE SPRINKLER DESIGNER): Hba1c was Lab Results Component Value Date [...] goal hba1c is under 7.0 to prevent fpc diabetes complications ( eye , kidney and [...] pm Assessment & Plan (03/14/2017 10:33 AM FIRE SPRINKLER DESIGNER): Hba1c was 7.6 today, indicating inadequate DM [...] HYPERCHOLESTEROLEM Assessment & Plan (03/14/2017 10:31 AM FIRE SPRINKLER DESIGNER): Goal of treatment , LDL cholesterol less [...] Lisinopril Assessment & Plan (03/19/2020 2:35 PM FIRE SPRINKLER DESIGNER): Goal blood pressure is less than 140/85 [...] ARB Assessment & Plan (01/23/2018 2:34 PM FIRE SPRINKLER DESIGNER): Goal blood pressure is less than 140/85 Low salt diet recommended Daily aerobic exercise Continue current meds, including MARIANNE-I or ARB Assessment & Plan (09/19/2017 11:13 AM CDT): Goal blood pressure is less than 140/85 Low salt diet recommended Daily aerobic exercise Continue current meds, including MARIANNE-I or ARB Assessment & Plan (03/14/2017 10:31 AM FIRE SPRINKLER DESIGNER): Goal blood pressure is less than 140/85 [...] on file Legal Sex Female 10:35 AM FIRE SPRINKLER DESIGNER Gender Identity Not on file Sexual Orientation [...] Plan of Treatment Not on file Insurance [facility] MD[facility] HMO [facility] Address: [facility] [id number] [place] [phone] Care Teams Devops Architect Relationship Specialty Start Date End Date Javi Arce MD [address] [facility] [address] [place] [address] PCP - General Internal Medicine 03/19/20
--- OUTSIDE RECORDS SUMMARY | 2024-05-11 18:37 | XMS_ITS | Clinical Summary ---
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 PROCEDURE: Planar images of the lumbar spine, forearm and hip(s) using a Tigerstripe DEXA scanner for bone mineral density determination [...] DO DICTATION LOCATION: Location 1 - [facility] Javi Arce MD DIAGNOSTIC IMAGING ORDERABLES Final [...] Most Recently Relevant to Health Maintenance Insurance [facility] [id number] [facility] MCR Care Teams Consulting Senior Practice Director Relationship Specialty Start Date End Date Javi Arce MD [address] [facility] [address] [place] [address] PCP - General Internal Medicine 05/30/12
--- OUTSIDE RECORDS SUMMARY | 2024-05-11 18:37 | XMS_ITS | Clinical Summary ---
Author Organization [facility] Address [address] [place] [address] Care Team Providers Care Business Applications Analyst Name Role Phone Javi Arce MD Primary [...] 8 Active vitamins A,C,E-zinc-adolfo er (PRESERVISION AREDS) [id number] vgxt-xn-wblq capsule Take according to qnzi-vdq-auciey r package directions 0 0 8 Active multivitamin tablet tablet Take according to wuna-kbw-[id number] r package directions 0 0 8 Active [...] Atorvastatin Assessment & Plan (03/19/2020 2:33 PM REAL ESTATE UNDERWRITER): Goal of treatment , LDL cholesterol less [...] therapy Assessment & Plan (01/23/2018 2:34 PM REAL ESTATE UNDERWRITER): Goal of treatment , LDL cholesterol less [...] agents Assessment & Plan (03/19/2020 2:35 PM REAL ESTATE UNDERWRITER): Hba1c was Lab Results Component Value Date [...] Metformin Assessment & Plan (01/23/2018 2:32 PM REAL ESTATE UNDERWRITER): Hba1c was Lab Results Component Value Date [...] goal hba1c is under 7.0 to prevent halfway diabetes complications ( eye , kidney and [...] pm Assessment & Plan (03/14/2017 10:33 AM REAL ESTATE UNDERWRITER): Hba1c was 7.6 today, indicating inadequate DM [...] HYPERCHOLESTEROLEM Assessment & Plan (03/14/2017 10:31 AM REAL ESTATE UNDERWRITER): Goal of treatment , LDL cholesterol less [...] Lisinopril Assessment & Plan (03/19/2020 2:35 PM REAL ESTATE UNDERWRITER): Goal blood pressure is less than 140/85 [...] ARB Assessment & Plan (01/23/2018 2:34 PM REAL ESTATE UNDERWRITER): Goal blood pressure is less than 140/85 Low salt diet recommended Daily aerobic exercise Continue current meds, including MARIANNE-I or ARB Assessment & Plan (09/19/2017 11:13 AM CDT): Goal blood pressure is less than 140/85 Low salt diet recommended Daily aerobic exercise Continue current meds, including MARIANNE-I or ARB Assessment & Plan (03/14/2017 10:31 AM REAL ESTATE UNDERWRITER): Goal blood pressure is less than 140/85 [...] on file Legal Sex Female 10:35 AM REAL ESTATE UNDERWRITER Gender Identity Not on file Sexual Orientation [...] Plan of Treatment Not on file Insurance [facility] MDCR HMO [facility] MEDIC[facility] Address: [address] [address] Care Teams Business Applications Analyst Relationship Specialty Start Date End Date Javi Arce MD [address] [facility] [place] [address] PCP - General Internal Medicine 03/19/20
[2024-05-11] MEDS: atenoloL 25 MG TABLET PO ×2 (18:48→22:25)
[2024-05-11 19:15] LABS: Free T4 Free Thyroxine Reflex 2.36 ng/dL (0.78-2.19)
--- NOTE | 2024-05-11 21:04 | ADMGEN ---
This patient, Rosa Maria Love, was admitted to IMU Room 207-01 on 05/11/24 at 2050. Patient/family oriented to hospital policies and general routines including ID bracelet, bed and alarms, visiting hours, pain management, procedures, bathroom and other care routines, personal items, smoking policy, room service/diet, and visiting hours. Information on how to activate the Rapid Response Team has been discussed. Patient/Family are encouraged to report perceived risks to care and to ask questions if they do not understand what they are told or what they should do.
[2024-05-11 21:06] LABS: Glucose Point of Care 426 mg/dl (65-105)
[2024-05-11] MEDS: ATORVASTATIN 40 MG TABLET PO (23:34)
[2024-05-11] MEDS: INSULIN GLARGINE (*BKC) 100 UNITS/ML 11 UNITS SUB-Q (23:37)
[2024-05-11] MEDS: INSULIN ASPART (*BKC) 100 UNITS/ML 10 UNITS SUB-Q (23:38)
[2024-05-11] MEDS: ONDANSETRON INJ 4 MG/2 ML VIAL IV PUSH (23:44)
[2024-05-12] VITALS (23 sets, daily range): BP systolic 89–127; BP diastolic 5–57; PULSE 58–102; RESP 14–22; TEMP 36.5–36.8; O2SAT 98–100
--- NOTE | 2024-05-12 01:54 | PC.NURSE ---
Daylight Savings Time For Daylight Savings Time Ending in the Fall - Clocks are moved back. For Daylight Savings Time Beginning in the Spring - Clocks are moved ahead. For [facility], the time of change occurs at 0200 hrs. Time is taken from the server support technician. This entry on the patient's chart recognizes the change in time reflected during documentation. Example: 2 entries for vital signs may be charted for 0200 hrs.
[2024-05-12 04:20] LABS: Basophils Absolute Auto 0.1 K/mm3 (0.0-0.1); Basophils Percent Auto 0.4 % (0.2-1.2); Eosinophils Percent Auto 0.3 % (0-4.4); Hemoglobin 9.2 g/dL (12.0-15.0); Immature Granulocyte Absolute 0.13 K/mm3 (0.00-0.031); Immature Granulocyte Percent A 1.1 % (0-0.5); Lymphocytes Absolute Auto 1.62 K/mm3 (0.9-3.2); Lymphocytes Percent Auto 13.6 % (18.3-44.2); Mean Corpuscular HGB Conc 32.9 g/dl (32-36); Mean Corpuscular Hemoglobin 28.1 pg (26-34); Mean Corpuscular Volume 85.6 fl (80-100); Mean Platelet Volume 9.7 fl (7.4-10.4); Monocytes Absolute Auto 1.4 K/mm3 (0.1-0.6); Monocytes Percent Auto 11.6 % (2.6-8.5); Neutrophils Absolute Auto 8.7 K/mm3 (1.3-6.7); Platelet Count Result 338 k/mm3 (150-375); Red Blood Count 3.27 M/mm3 (4.2-5.4); Red Cell Distribution Width 14.4 % (11.5-14.5); White Blood Count 11.9 K/mm3 (4.5-10.0)
[2024-05-12 04:29] LABS: Alanine Aminotransferase 23 U/L (6-35); Albumin Level 2.1 g/dL (3.5-5.1); Alkaline Phosphatase 63 U/L (38-126); Anion Gap 8 mmol/L (4-12); Aspartate Amino Transferase 27 U/L (14-36); Bilirubin,Total 0.2 mg/dL (0.2-1.3); Blood Urea Nitrogen 37 mg/dL (7-17); Calcium 7.2 mg/dL (8.4-10.2); Carbon Dioxide 19 mmol/L (22-30); Chloride 109 mmol/L (98-107); Creatine Kinase 363 U/L (30-135); Estimated CRCL calculation 53 ml/min; Estimated Glomerular Filt Rate > 60; Glucose 195 mg/dL (65-110); Potassium 3.4 mmol/L (3.4-5.0); Sodium 136 mmol/L (137-145)
[2024-05-12] MEDS: SODIUM CHLORIDE 0.9% IV 1,000 ML 125 ML IV CONT (07:33)
[2024-05-12 08:07] LABS: Glucose Point of Care 197 mg/dl (65-105)
[2024-05-12] MEDS: DOCUSATE SODIUM 100 MG CAPSULE PO (09:53)
[2024-05-12] MEDS: ASPIRIN 81 MG ENTERIC TABLET PO (09:53)
[2024-05-12] MEDS: atenoloL 50 MG TABLET PO (09:53)
[2024-05-12] MEDS: ENOXAPARIN 40 MG/0.4 ML SYRINGE SUB-Q (09:54)
[2024-05-12 11:46] LABS: Glucose Point of Care 201 mg/dl (65-105)
--- NOTE | 2024-05-12 11:50 | PC.NURSE ---
Addendum entered by Jone Macias RN 05/12/24 12:34: Patient ambulated, and fell out of chair unattended. Chair alarm was active during fall. Dr Diaz was called and notified, Stat XR of BL hips was ordered and vital signs at this time are HR73, O2100%, BP 89/42. Dr Diaz notified. Original Note: Patient ambulated, and fell out of chair unattended. Dr Diaz was called and notified, Stat XR of BL hips was ordered and vital signs at this time arre HR73, O2100%, BP 89/42. Dr Diaz notified.
--- NOTE | 2024-05-12 13:55 | PM.IMPN ---
Progress Note: A&P Assessment and Plan (1) Altered mental status: Code(s): R41.82 - Altered mental status, unspecified Status: Acute (2) Leukocytosis: Code(s): D72.829 - Elevated white blood cell count, unspecified Status: Acute (3) Goiter: Code(s): E04.9 - Nontoxic goiter, unspecified Status: Acute (4) Fall: Code(s): W19.XXXA - Unspecified fall, initial encounter Status: Acute (5) Rhabdomyolysis: Code(s): M62.82 - Rhabdomyolysis Status: Acute (6) Self neglect: Code(s): R46.89 - Other symptoms and signs involving appearance and behavior Status: Acute (7) Erythema: Code(s): L53.9 - Erythematous condition, unspecified Status: Acute Plan 73-year-old female found down covered in stool at her house by EMS with altered mental status. Her lab work in the ED showed leukocytosis at 12.5, anion gap is 16, carbon dioxide 18, BUN of 32, glucose of 124, magnesium of 1.1, CK of 559, UA negative for infection, ethanol level negative, tox screen negative, influenza A/B and RSV negative. Head CT showed no acute findings, C-spine showed severe cervical spondylosis and Multinodular goiter extending into the mediastinum. CT abdomen chest pelvis showed the goiter and bilateral nonobstructing kidney stones. EKG shows sinus tachycardia at 142. In the ED the patient received 2 L fluid bolus and 4 g of magnesium. Per EMS the patient was a hoarder and she had to be taken out through her window because they could not open the front door. They also noted that there was bottles full of urine. subsequently during the hospital stay, she sustained a fall and landed on right hip sustaining right hip fracture. she will be bed rest, orthopedics will be consulted. altered mental status: unclear etiology. she has multiple abrasions from the fall in her body. no signs of infection otherwise. uds negative. viral swab negative. head ct negative. ammonia normal. lft normal severe dehydration likely with potentially signs of hemoconcentration. continue ivf and monitor anemia: coudl be hemoconcentrated. no prior labs. no signs of bleeding. continue to monitor. rhabdomyolysis: ck elevated on admission at 559, continue iv hydration bilatearl non obstructing kidney stones diabetes: recently was placed on insulin per patient. place on ssi. check a1c unkempt living situation. 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 continue to monitor. check us thyroid. cervical spondylosis right hip osteoarthritis osteoporosis DVT proph: scds Code status: full code Subjective Date/time seen: 05/12/24 13:55 Interval history: patient more awake and conversant this morning. states she went to a parade with [place] and then got back home. which was hot. she then passed out and was on the floor. agapito called the ambulance and was brought in here. she was down covered in stool at her house by EMS later she fell and hit her hip and sustained a hip fracture this afternoon Review of Systems Review of Systems: All systems reviewed & are unremarkable except as noted in HPI and below Exam Narrative: General: well appearing, appears stated age. HEENT: normocephalic, atraumatic. Mucous membranes moist. EOMI, PERRLA, bilateral sclera anicteric, no conjunctival injection. Neck supple without JVD, lymphadenopathy, or bruit. eye proptosis Respiratory: clear to ascultation bilaterally. No rales/rhonic/wheezes. Cardiovascular: Regular rate and rhythm, normal S1-S2 upon ascultation. No murmurs, rubs, or clicks. PMI is nondisplaced, capillary refill less than 3 second. Abdomen: Soft, round, no pulsatile masses, nondistended and nontender. No rebound, no guarding. No CVA tenderness, no hepatosplenomegaly. Bowel sounds present to all four quadrants. No high pitch or tinkling sounds, resonant to percussion. Extremities: No cyanosis, clubbing, or edema present. Pulses are palpable 2/2. Active ROM to all four extremities. Neuro: Alert and orientated x 1. PERRLA. follows comands Skin: Warm, dry, and intact, multiple abrasions on the back noted Psych: pleasant, cooperative, normal speech, normal affect, no hallucinations, no dysarthia Objective Data Vital Signs Vital Signs: Vital Signs - 24 hr 05/11/24 13:30 05/11/24 13:45 05/11/24 13:49 Temperature Pulse Rate 126 H 127 H 126 H Respiratory Rate 21 H 23 H 19 Blood Pressure 143/100 H 134/74 134/74 Pulse Oximetry 100 100 Oxygen Delivery 05/11/24 14:00 05/11/24 15:00 05/11/24 15:01 Temperature Pulse Rate 128 H 128 H 128 H Respiratory Rate 21 H 17 19 Blood Pressure 128/71 137/77 125/83 Pulse Oximetry 97 99 96 Oxygen Delivery 05/11/24 16:45 05/11/24 17:00 05/11/24 18:00 Temperature Pulse Rate 128 H 123 H 132 H Respiratory Rate 20 17 15 Blood Pressure 127/77 125/83 141/73 H Pulse Oximetry Oxygen Delivery 05/11/24 18:48 05/11/24 18:51 05/11/24 20:54 Temperature Pulse Rate 135 H 135 H 83 Respiratory Rate 20 Blood Pressure 123/66 Pulse Oximetry 96 Oxygen Delivery 05/11/24 20:55 05/11/24 21:00 05/11/24 22:00 Temperature 97.6 F Pulse Rate 103 H 103 H 96 Respiratory Rate 22 H 22 H Blood Pressure 132/67 Pulse Oximetry 97 97 Oxygen Delivery Room Air 05/11/24 22:25 05/11/24 23:56 05/12/24 00:00 Temperature 97.8 F Pulse Rate 98 93 90 Respiratory Rate 22 H Blood Pressure 121/53 L Pulse Oximetry 100 Oxygen Delivery 05/12/24 00:40 05/12/24 01:59 05/12/24 03:56 Temperature 97.7 F Pulse Rate 93 58 L 71 Respiratory Rate 22 H 22 H Blood Pressure 127/54 L Pulse Oximetry 100 99 Oxygen Delivery Room Air 05/12/24 04:00 05/12/24 04:06 05/12/24 05:45 Temperature Pulse Rate 77 71 83 Respiratory Rate 22 H Blood Pressure Pulse Oximetry 99 Oxygen Delivery Room Air 05/12/24 08:00 05/12/24 08:00 05/12/24 08:00 Temperature 98.0 F Pulse Rate 91 90 90 Respiratory Rate 14 14 Blood Pressure 105/5 L Pulse Oximetry 98 98 Oxygen Delivery Room Air 05/12/24 09:43 05/12/24 09:53 05/12/24 10:00 Temperature Pulse Rate 90 91 Respiratory Rate Blood Pressure Pulse Oximetry Oxygen Delivery Room Air 05/12/24 11:28 05/12/24 11:28 05/12/24 11:45 Temperature Pulse Rate 91 91 73 Respiratory Rate 14 16 Blood Pressure 89/42 L Pulse Oximetry 98 100 Oxygen Delivery Room Air 05/12/24 12:54 Temperature Pulse Rate 73 Respiratory Rate 16 Blood Pressure 89/42 L Pulse Oximetry 100 Oxygen Delivery Intake/Output Intake/Output: Intake & Output 05/09/24 05/10/24 05/11/24 05/13/24 23:59 23:59 23:59 00:59 Intake Total 3077.1 1074 Output Total 800 Balance 3077.1 274 Meds/Results Medications: Active Medications Generic Name Dose Route Start Last Admin Trade Name Freq PRN Reason Stop Dose Admin Acetaminophen 650 mg 05/11/24 15:01 Acetaminophen 325 Mg Tablet PO Q4H PRN Mild Pain (1-3) or Fever Aspirin 81 mg 05/12/24 09:00 05/12/24 09:53 Aspirin 81 Mg Enteric Tablet PO 81 mg DAILY CESAR Administration Atenolol 50 mg 05/12/24 09:00 05/12/24 09:53 Atenolol 50 Mg Tablet PO 50 mg DAILY CESAR Administration Atorvastatin Calcium 40 mg 05/11/24 23:10 05/11/24 23:34 Atorvastatin 40 Mg Tablet PO 40 mg QPM CESAR Administration Dextrose 12.5 gm 05/11/24 23:08 Dextrose 50% 25 Gm/50 Ml Syringe IV PUSH PRN PRN Hypoglycemia Protocol Docusate Sodium 100 mg 05/12/24 09:00 05/12/24 09:53 Docusate Sodium 100 Mg Capsule PO 100 mg DAILY CESAR Administration Enoxaparin Sodium 40 mg 05/12/24 09:00 05/12/24 09:54 Enoxaparin 40 Mg/0.4 Ml Syringe SUB-Q 40 mg DAILY CESAR Administration Furosemide 20 mg 05/12/24 09:00 Furosemide 20 Mg Tablet PO DAILY CESAR Glucagon 1 mg 05/11/24 23:08 Glucagon For Inj 1 Mg Vial IM PRN PRN Hypoglycemia Protocol Glucose 15 gm 05/11/24 23:08 Glucose Oral Gel 15 Gm Of Glucse In 37.5 Gm Tube PO PRN PRN Hypoglycemia Protocol Sodium Chloride 1,000 mls @ 125 mls/hr 05/11/24 14:10 05/12/24 07:33 Normal Saline Iv IV CONT 125 mls/hr .Q8H CESAR Administration Dextrose 1,000 mls @ 100 mls/hr 05/11/24 23:08 Dextrose 5% 1,000 Ml IVPB PRN PRN Hypoglycemia Protocol Insulin Aspart 4 - 8 units 05/12/24 08:00 05/12/24 13:28 Insulin Aspart (*Bkc) 100 Units/Ml SUB-Q Not Given TIDWM [facility] Protocol Insulin Aspart 2 - 4 units 05/12/24 21:00 Insulin Aspart (*Bkc) 100 Units/Ml SUB-Q HS [facility] Protocol Insulin Glargine 11 units 05/11/24 23:10 05/11/24 23:37 Insulin Glargine (*Bkc) 100 Units/Ml 0.15 units/kg (11 units) 11 units SUB-Q Administration [facility] Ondansetron HCl 4 mg 05/11/24 14:08 05/11/24 23:44 Ondansetron Inj 4 Mg/2 Ml Vial IV PUSH 4 mg Q4H PRN Administration Nausea Radiology Results: ITS Impressions Chest X-Ray 05/11/24 11:38 IMPRESSION: 1. Widening of the superior mediastinum, which may be seen with lipomatosis or a tortuous aorta. Malignancy is not excluded. Chest CT is recommended if this area is not included on the pending cervical spine CT. Chest/Abdomen/Pelvis CT 05/11/24 12:07 IMPRESSION: 1. Multinodular goiter extending into the mediastinum correlating with the chest radiograph abnormality. 2. Bilateral nonobstructing kidney stones. Cervical Spine CT 05/11/24 12:13 IMPRESSION: 1. No fracture. 2. Severe cervical spondylosis. 3. Multinodular goiter extending into the mediastinum. Hip/Pelvis X-Ray 05/12/24 12:24 Impression: Acute intertrochanteric fracture of the proximal right femur, as detailed above. Advanced degenerative change of the right hip joint. Head CT 05/12/24 13:17 Impression: No intracranial hemorrhage, mass, or acute infarct. Atrophy and chronic white matter changes, as above. Labs Labs: Laboratory Results - last 24 hr 05/11/24 05/11/24 05/11/24 11:27 15:37 15:46 WBC RBC Hgb Hct MCV MCH MCHC RDW Plt Count MPV Immature Gran % (Auto) Neut % (Auto) Lymph % (Auto) [place] % (Auto) Eos % (Auto) Baso % (Auto) Lymph # (Auto) [place] # (Auto) Eos # (Auto) Baso # (Auto) Abs Immat Gran (auto) Absolute Neuts (auto) Absolute Nucleated RBC Nucleated RBC % Sodium Potassium Chloride Carbon Dioxide Anion Gap BUN Creatinine Estim Creat Clear Calc Estimated GFR Glucose POC Capillary Glucose Calcium Total Bilirubin AST ALT Alkaline Phosphatase Total Creatine Kinase Total Protein Albumin TSH (Reflex) < 0.015 L Free T4 2.36 H 1.94 Free T3 pg/mL 3.68 05/11/24 05/12/24 05/12/24 21:04 03:52 08:04 WBC 11.9 H RBC 3.27 L Hgb 9.2 L D Hct 28.0 L MCV 85.6 MCH 28.1 MCHC 32.9 RDW 14.4 Plt Count 338 MPV 9.7 Immature Gran % (Auto) 1.1 H Neut % (Auto) 73.0 Lymph % (Auto) 13.6 L [place] % (Auto) 11.6 H Eos % (Auto) 0.3 Baso % (Auto) 0.4 Lymph # (Auto) 1.62 [place] # (Auto) 1.4 H Eos # (Auto) 0.0 Baso # (Auto) 0.1 Abs Immat Gran (auto) 0.13 H Absolute Neuts (auto) 8.7 H Absolute Nucleated RBC 0.000 Nucleated RBC % 0.0 Sodium 136 L Potassium 3.4 Chloride 109 H Carbon Dioxide 19 L Anion Gap 8 BUN 37 H Creatinine 0.77 Estim Creat Clear Calc 53 Estimated GFR > 60 Glucose 195 H POC Capillary Glucose 426 H 197 H Calcium 7.2 L Total Bilirubin 0.2 AST 27 ALT 23 Alkaline Phosphatase 63 Total Creatine Kinase 363 H Total Protein 4.0 L Albumin 2.1 L TSH (Reflex) Free T4 Free T3 pg/mL 05/12/24 11:42 WBC RBC Hgb Hct MCV MCH MCHC RDW Plt Count MPV Immature Gran % (Auto) Neut % (Auto) Lymph % (Auto) [place] % (Auto) Eos % (Auto) Baso % (Auto) Lymph # (Auto) [place] # (Auto) Eos # (Auto) Baso # (Auto) Abs Immat Gran (auto) Absolute Neuts (auto) Absolute Nucleated RBC Nucleated RBC % Sodium Potassium Chloride Carbon Dioxide Anion Gap BUN Creatinine Estim Creat Clear Calc Estimated GFR Glucose POC Capillary Glucose 201 H Calcium Total Bilirubin AST ALT Alkaline Phosphatase Total Creatine Kinase Total Protein Albumin TSH (Reflex) Free T4 Free T3 pg/mL
--- NOTE | 2024-05-12 14:29 | PM.CNOR ---
Assessment and Plan Assessment and plan (1) Fracture, intertrochanteric, right femur: Qualifiers: Encounter type: initial encounter Fracture type: closed Fracture alignment: displaced Qualified Code(s): S72.141A - Displaced intertrochanteric fracture of right femur, initial encounter for closed fracture Code(s): S72.141A - Displaced intertrochanteric fracture of right femur, initial encounter for closed fracture Status: Acute (2) Osteoarthritis of right hip: Qualifiers: Osteoarthritis type: primary Qualified Code(s): M16.11 - Unilateral primary osteoarthritis, right hip Code(s): M16.11 - Unilateral primary osteoarthritis, right hip Status: Acute Plan Patient is a 73-year-old female who fell couple of hours ago in her hospital room and sustained a displaced 4 part right intertrochanteric hip fracture. She is patient Dr. Arce. The nurse states that she had been up to the chair and the chair alarm alerted and within several seconds there was an audible side the the patient heard while running to her room to answer the chair alarm and she was found on the floor. X-rays were obtained of the right hip and show a displaced 4 part right intertrochanteric hip fracture. The x-rays also show severe osteoarthritis the right hip. The head remains spherical. Patient was brought to the emergency room yesterday before noon time. Her niece and nephew drove up from [place] yesterday to check on her as she was not responding. She was found on the floor essentially unresponsive and covered with feces. 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 She does not have any pets currently. In the emergency room she was evaluated with CT of the head which showed no acute changes and CT of chest abdomen pelvis. There was no evidence of fracture of the right hip at that time. There was a large goiter. C-spine CT also obtained. This showed degenerative changes. Laboratory studies showed white count of 12.5 and today it is 11.9. Hemoglobin was 12.9 and with fluid resuscitation it is 9.2 today. Troponin was normal at noon yesterday. Sodium 136. BUN was elevated at 32 and today it is 37. Creatinine clearance today estimated at 53 GFR greater than 60 creatinine 0.77. Glucose was 212 in the ER 426 last night and is 201 now. She is on insulin. She has a long history of diabetes. She has neuropathy in her feet. Total protein today only 4.0 and albumin today only 2.1 suggesting severe protein deficiency type malnutrition. TSH was less than 0.015 free T4 and free T3 were normal. Urinalysis yesterday showed 4+ ketones negative leukocyte esterase. 0-5 white blood cells. Urine screen for drugs was negative negative ethyl alcohol. Negative serology for influenza a B and COVID. Magnesium was low at 1.1. Her diagnosis was acute encephalopathy. Etiology of encephalopathy is unclear but thought to be due to dehydration primarily. Today she has been more awake and alert and off and on she has been sleeping and then awakens and speaks to her niece and nephew or at the bedside. She is had forgetfulness for a long time. She has complained of right hip pain for long time and has to use a cane or walker chronically. Physical examination On exam today, she was very pleasant and she stated she remembered me and has seen me in the office some years ago to discuss right hip replacement. Her nephew notes that her blood sugars were too high to do her surgery at that time. She could not remember the the term diabetes or neuropathy but when I asked her if she had normal feeling in her feet she tried remember the word neuropathy and when I said it she immediately recognize the word. I asked her what year was and she answered 1974. She had a 2+ dorsalis pedis pulse. Her toenails are extremely long with fungal changes but the skin in her foot ankle and lower leg looks normal. Trace pedal edema and pretibial edema bilaterally. She stated she could feel me touch her feet and was able to wiggle her toes up and down on the right foot. She complained that when she fell she hit her head. She denies any other injury. CT scan of her brain was repeated within the last hour and this showed no acute changes again. Significant white matter atrophy. Assessment and plan Patient has pre-existing severe osteoarthritis the right hip. One consideration would be to proceed with total hip replacement which would be accomplished using a revision type stem getting purchase into the intramedullary canal and wearing the tuberosity fragments around the top of the prosthesis and acetabular replacement of course and probably use of a dual mobility head to decrease risk of dislocation which is high in that setting. Normally this fracture pattern is treated with open reduction internal fixation with a trochanteric nail device. I se pictures of these options explaining the situation to her nephew in detail today. The total hip replacement would be a much larger operative procedure for her and I believe that her malnutrition would put her at excessive risk for infection and complications with that procedure. Unfortunately internal fixation of her fracture when healed will leave her with a hip that still has rather severe arthritis and she would still need to use a walker. Again, she was using a walker before her fall at home. Light of her current state of encephalopathy and evidence of protein deficiency type malnutrition and I suspect probably poorly controlled diabetes, internal fixation of her fracture would be the procedure that would have the lowest risk and down the road if her nutritional status improved and her encephalopathy improved and her diabetes was under acceptable control, she could undergo conversion of her healed right intertrochanteric hip fracture to total hip arthroplasty. That would be a tertiary care center procedure as there is a higher level of complexity in that situation. I discussed with her niece and nephew that if she were considered to be at acceptable health to undergo the total hip replacement immediately, I would refer her to a tertiary care institution for that procedure. I have spoken with the cna caregiver it and her understanding is that the par returning would go to next of kin which in this case would be her brother. Patient has ever been and is not have children herself and her parents have . I spoke to her brother Ajay Love on the phone. [phone]. He does not have a cell phone as they have no outpatient receptionist where they live and he lives about 1.5 hours away. The cna caregiver advised me that per [place] statutes, since she has confusion, he would automatically be given authorization to consent to surgery in a case like this. I think that given her home status and confusion, some sort of assisted living or correction type arrangement will be necessary long-term in the future. I explained to Ajay that if no surgery is performed, she is not likely to be able to do any walking which would be of course very problematic for her and surgical repair would be a most appropriate option for her if she is considered medically stable. We will ask the hospitalist service to evaluate her for preop medical stability and we can plan to proceed with surgery when she is deemed stable to proceed. I have ordered a hemoglobin A1c and pre-albumin as well. Will ask the dietitian to see her. We need to optimize her protein intake. I discussed risks of surgery with her brother Ajay in detail as he will be the 1 to consent to surgery. I explained the different options and explained my reasoning behind recommending repairing the fracture so she can be mobilized with the plan of considering conversion to a total hip replacement reconstruction down the road if her health and mental status improved considerably. Risk of infection being higher was carefully explained. Risk of mortality in the short-term and intermediate term was explained. 90 minutes were spent in total care this patient History of Present Illness HPI Consult date: 05/12/24 Chief complaint: acute encephalopathy,dehydration PMFSH Past Medical History Medical History (Updated 05/12/24 @ 15:12 by Candelario Prieto MD) Diabetes Surgical History Surgical History (Updated 05/11/24 @ 20:07 by Geovanna Naranjo MD) Surgical history unknown Family History Family History Mother Ovarian cancer Dementia Hypertension Diabetes mellitus Hyperlipidemia Father Myocardial infarct Hypertension Hyperlipidemia Broken heart syndrome Sibling Diabetes mellitus Hypertension Hyperlipidemia Sibling Glioblastoma Hypertension Hyperlipidemia Social History Social History (Updated 05/11/24 @ 20:07 by Geovanna Naranjo MD) Smoking status: Never smoker Second hand tobacco smoke exposure: No Alcohol intake: never Substance use: never Substance use type: does not use Do You Feel Safe in your Home?: Yes Lack of Transportation: No Lack of Food: Never True Current Housing: I Have Housing Concerned About Future Housing: No Difficulty Paying Gas/Electric Bills: No Difficulty Paying for Meds: No Currently Unemployed: No Education: Master's Degree or Higher Difficulty w/ Childcare or Family Care: No Spiritual care concerns: No Meds Home Medications and Allergies Home Medications ?Medication ?Instructions ?Recorded ?Confirmed ?Type alendronate 70 mg tablet 70 mg PO WEEKLY 05/11/24 05/11/24 History aspirin 81 mg tablet,delayed 81 mg PO DAILY 05/11/24 05/11/24 History release (Adult Aspirin Regimen) atorvastatin 40 mg tablet 40 mg PO QPM 05/11/24 05/11/24 History ergocalciferol (vitamin D2) 1,250 50,000 unit PO WEEKLY 05/11/24 05/11/24 History mcg (50,000 unit) capsule furosemide 20 mg tablet 20 mg PO DAILY 05/11/24 05/11/24 History gabapentin 100 mg capsule 100 mg PO TID 05/11/24 05/11/24 History glimepiride 4 mg tablet 4 mg PO BID 05/11/24 05/11/24 History lisinopril 10 mg tablet 10 mg PO DAILY 05/11/24 05/11/24 History metformin 1,000 mg tablet 1,000 mg PO BID 05/11/24 05/11/24 History omeprazole 20 mg capsule,delayed 20 mg PO DAILY 05/11/24 05/11/24 History release potassium chloride 20 mEq 20 meq PO DAILY 05/11/24 05/11/24 History tablet,extended release(part/cryst) tramadol 50 mg tablet 50 mg PO QID PRN pain 05/11/24 05/11/24 History Allergies Allergy/AdvReac Type Severity Reaction Status Date / Time gabapentin AdvReac Unknown Unknown Verified 05/12/24 06:08 Vital Signs Vital Signs - 24 hr 05/11/24 13:30 05/11/24 13:45 05/11/24 13:49 Temperature Pulse Rate 126 H 127 H 126 H Respiratory Rate 21 H 23 H 19 Blood Pressure 143/100 H 134/74 134/74 Pulse Oximetry 100 100 Oxygen Delivery 05/11/24 14:00 05/11/24 15:00 05/11/24 15:01 Temperature Pulse Rate 128 H 128 H 128 H Respiratory Rate 21 H 17 19 Blood Pressure 128/71 137/77 125/83 Pulse Oximetry 97 99 96 Oxygen Delivery 05/11/24 16:45 05/11/24 17:00 05/11/24 18:00 Temperature Pulse Rate 128 H 123 H 132 H Respiratory Rate 20 17 15 Blood Pressure 127/77 125/83 141/73 H Pulse Oximetry Oxygen Delivery 05/11/24 18:48 05/11/24 18:51 05/11/24 20:54 Temperature Pulse Rate 135 H 135 H 83 Respiratory Rate 20 Blood Pressure 123/66 Pulse Oximetry 96 Oxygen Delivery 05/11/24 20:55 05/11/24 21:00 05/11/24 22:00 Temperature 36.4 C Pulse Rate 103 H 103 H 96 Respiratory Rate 22 H 22 H Blood Pressure 132/67 Pulse Oximetry 97 97 Oxygen Delivery Room Air 05/11/24 22:25 05/11/24 23:56 05/12/24 00:00 Temperature 36.6 C Pulse Rate 98 93 90 Respiratory Rate 22 H Blood Pressure 121/53 L Pulse Oximetry 100 Oxygen Delivery 05/12/24 00:40 05/12/24 01:59 05/12/24 03:56 Temperature 36.5 C Pulse Rate 93 58 L 71 Respiratory Rate 22 H 22 H Blood Pressure 127/54 L Pulse Oximetry 100 99 Oxygen Delivery Room Air 05/12/24 04:00 05/12/24 04:06 05/12/24 05:45 Temperature Pulse Rate 77 71 83 Respiratory Rate 22 H Blood Pressure Pulse Oximetry 99 Oxygen Delivery Room Air 05/12/24 08:00 05/12/24 08:00 05/12/24 08:00 Temperature 36.7 C Pulse Rate 91 90 90 Respiratory Rate 14 14 Blood Pressure 105/5 L Pulse Oximetry 98 98 Oxygen Delivery Room Air 05/12/24 09:43 05/12/24 09:53 05/12/24 10:00 Temperature Pulse Rate 90 91 Respiratory Rate Blood Pressure Pulse Oximetry Oxygen Delivery Room Air 05/12/24 11:28 05/12/24 11:28 05/12/24 11:45 Temperature Pulse Rate 91 91 73 Respiratory Rate 14 16 Blood Pressure 89/42 L Pulse Oximetry 98 100 Oxygen Delivery Room Air 05/12/24 12:54 05/12/24 14:00 Temperature Pulse Rate 73 73 Respiratory Rate 16 Blood Pressure 89/42 L Pulse Oximetry 100 Oxygen Delivery Results Labs 05/12/24 03:52 05/12/24 03:52 Labs: Abnormal lab results 05/11/24 05/11/24 05/12/24 Range/Units 11:27 21:04 03:52 WBC 11.9 H (4.5-10.0) K/mm3 RBC 3.27 L (4.2-5.4) M/mm3 Hgb 9.2 L D (12.0-15.0) g/dL Hct 28.0 L (37.0-47.0) % Immature Gran % (Auto) 1.1 H (0-0.5) % Lymph % (Auto) 13.6 L (18.3-44.2) % [place] % (Auto) 11.6 H (2.6-8.5) % [place] # (Auto) 1.4 H (0.1-0.6) K/mm3 Abs Immat Gran (auto) 0.13 H (0.00-0.031) K/mm3 Absolute Neuts (auto) 8.7 H (1.3-6.7) K/mm3 Sodium 136 L (137-145) mmol/L Chloride 109 H (98-107) mmol/L Carbon Dioxide 19 L (22-30) mmol/L BUN 37 H (7-17) mg/dL Glucose 195 H (65-110) mg/dL POC Capillary Glucose 426 H (65-105) mg/dl Calcium 7.2 L (8.4-10.2) mg/dL Total Creatine Kinase 363 H (30-135) U/L Total Protein 4.0 L (6.3-8.2) g/dL Albumin 2.1 L (3.5-5.1) g/dL TSH (Reflex) < 0.015 L (0.465-4.68) uIU/mL Free T4 2.36 H (0.78-2.19) ng/dL 05/12/24 05/12/24 Range/Units 08:04 11:42 WBC (4.5-10.0) K/mm3 RBC (4.2-5.4) M/mm3 Hgb (12.0-15.0) g/dL Hct (37.0-47.0) % Immature Gran % (Auto) (0-0.5) % Lymph % (Auto) (18.3-44.2) % [place] % (Auto) (2.6-8.5) % [place] # (Auto) (0.1-0.6) K/mm3 Abs Immat Gran (auto) (0.00-0.031) K/mm3 Absolute Neuts (auto) (1.3-6.7) K/mm3 Sodium (137-145) mmol/L Chloride (98-107) mmol/L Carbon Dioxide (22-30) mmol/L BUN (7-17) mg/dL Glucose (65-110) mg/dL POC Capillary Glucose 197 H 201 H (65-105) mg/dl Calcium (8.4-10.2) mg/dL Total Creatine Kinase (30-135) U/L Total Protein (6.3-8.2) g/dL Albumin (3.5-5.1) g/dL TSH (Reflex) (0.465-4.68) uIU/mL Free T4 (0.78-2.19) ng/dL H & H 05/11/24 05/12/24 Range/Units 11:28 03:52 Hgb 12.9 9.2 L D (12.0-15.0) g/dL Hct 39.3 28.0 L (37.0-47.0) % Coagulation 05/11/24 Range/Units 11:28 INR 1.1 All other labs normal.
[2024-05-12 15:19] LABS: Hemoglobin A1C 6.6 % (<5.7)
[2024-05-12 15:42] LABS: Prealbumin 7.7 mg/dL (17.6-36.0)
[2024-05-12 17:04] LABS: Glucose Point of Care 140 mg/dl (65-105)
[2024-05-12 20:05] LABS: Glucose Point of Care 172 mg/dl (65-105)
[2024-05-13] VITALS (38 sets, daily range): BP systolic 62–139; BP diastolic 38–92; PULSE 90–131; RESP 18–34; TEMP 36.3–37.4; O2SAT 94–100; BMI 28.4
[2024-05-13] MEDS: HYDROcodone/acetaminophen (*CRX) 5-325 MG TABLET 1 TAB PO ×2 (01:38→11:14)
[2024-05-13] MEDS: SODIUM CHLORIDE 0.9% IV 1,000 ML 125 ML IV CONT (04:41)
[2024-05-13 04:56] LABS: Basophils Percent Auto 0.2 % (0.2-1.2); Hematocrit 23.5 % (37.0-47.0); Hemoglobin 7.5 g/dL (12.0-15.0); Immature Granulocyte Absolute 0.23 K/mm3 (0.00-0.031); Immature Granulocyte Percent A 1.3 % (0-0.5); Lymphocytes Absolute Auto 1.22 K/mm3 (0.9-3.2); Lymphocytes Percent Auto 6.6 % (18.3-44.2); Mean Corpuscular HGB Conc 31.9 g/dl (32-36); Mean Corpuscular Hemoglobin 27.8 pg (26-34); Monocytes Absolute Auto 1.2 K/mm3 (0.1-0.6); Monocytes Percent Auto 6.4 % (2.6-8.5); Neutrophils Absolute Auto 15.8 K/mm3 (1.3-6.7); Neutrophils Percent Auto 85.5 % (45.5-73.1); Nucleated Red Blood Cells Perc 0.1 % (0.0-0.2); Platelet Count Result 311 k/mm3 (150-375); Red Cell Distribution Width 14.2 % (11.5-14.5); White Blood Count 18.4 K/mm3 (4.5-10.0)
[2024-05-13 05:12] LABS: Alanine Aminotransferase 23 U/L (6-35); Alkaline Phosphatase 60 U/L (38-126); Anion Gap 11 mmol/L (4-12); Aspartate Amino Transferase 30 U/L (14-36); Bilirubin,Total 0.3 mg/dL (0.2-1.3); Blood Urea Nitrogen 60 mg/dL (7-17); Carbon Dioxide 13 mmol/L (22-30); Chloride 110 mmol/L (98-107); Estimated CRCL calculation 36 ml/min; Estimated Glomerular Filt Rate 46; Glucose 270 mg/dL (65-110); Magnesium 1.3 mg/dL (1.6-2.3); Potassium 3.7 mmol/L (3.4-5.0); Sodium 134 mmol/L (137-145)
[2024-05-13 05:23] LABS: IFOB Positive Control Positive; Immunochemical Fecal Occult Bl Positive (N)
[2024-05-13 07:44] LABS: Glucose Point of Care 268 mg/dl (65-105)
--- NOTE | 2024-05-13 08:09 | P.PNIM_ITS ---
Progress Note: A&P Assessment and Plan (1) Altered mental status: Code(s): R41.82 - Altered mental status, unspecified Status: Acute (2) Leukocytosis: Code(s): D72.829 - Elevated white blood cell count, unspecified Status: Acute (3) Goiter: Code(s): E04.9 - Nontoxic goiter, unspecified Status: Acute (4) Fall: Code(s): W19.XXXA - Unspecified fall, initial encounter Status: Acute (5) Rhabdomyolysis: Code(s): M62.82 - Rhabdomyolysis Status: Acute (6) Self neglect: Code(s): R46.89 - Other symptoms and signs involving appearance and behavior Status: Acute (7) Erythema: Code(s): L53.9 - Erythematous condition, unspecified Status: Acute Plan 73-year-old female found down covered in stool at her house by EMS with altered mental status. Her lab work in the ED showed leukocytosis at 12.5, anion gap is 16, carbon dioxide 18, BUN of 32, glucose of 124, magnesium of 1.1, CK of 559, UA negative for infection, ethanol level negative, tox screen negative, influenza A/B and RSV negative. Head CT showed no acute findings, C-spine showed severe cervical spondylosis and Multinodular goiter extending into the mediastinum. CT abdomen chest pelvis showed the goiter and bilateral nonobstructing kidney stones. EKG shows sinus tachycardia at 142. In the ED the patient received 2 L fluid bolus and 4 g of magnesium. Per EMS the patient was a hoarder and she had to be taken out through her window because they could not open the front door. They also noted that there was bottles full of urine. subsequently during the hospital stay, she sustained a fall and landed on right hip sustaining right hip fracture. she will be bed rest, orthopedics will be consulted. Planned for surgery awaiting medical stabilization altered mental status: unclear etiology. she has multiple abrasions from the fall in her body. no signs of infection otherwise. uds negative. viral swab negative. head ct negative. ammonia normal. lft normal. Ongoing concern for GI bleed with dark stool. Baseline hemoglobin on known. severe dehydration likely with potentially signs of hemoconcentration. continue ivf and monitor anemia: coudl be hemoconcentrated. no prior labs. Dark stool as well as FOBT positive. H&H continues to drop. Ppi added GI consultation. Orthopedic surgery need to hold until anemia stabilizes and GI workup complete. continue to monitor H&H Q 6 Gi bleed: As evidenced with dark stool and fobt postiive dropping h and h. PPI. GI consultation. Hold aspirin and Lovenox rhabdomyolysis: ck elevated on admission at 559, continue iv hydration bilatearl non obstructing kidney stones diabetes: recently was placed on insulin per patient. place on ssi. A1c 6.6 Metabolic acidosis could be from GI bleed/diarrhea. Non-anion gap. Will add bicarb drip. unkempt living situation. social staff worker consultation multinodular goiter: tsh low with normal free T3/T4. continue to monitor. Ultrasound thyroid with TR 4 nodule need biopsy at some point Leukocytosis worsened could be from GI bleed reactive. No signs of infection. also having diarrhea diarrhea: c diff pending. could be from gi bleed cervical spondylosis right hip osteoarthritis osteoporosis DVT proph: scds Code status: full code Subjective Date/time seen: 05/13/24 08:09 Interval history: dark stool reported. bp has imrpoved. labs reviewed. discussd with nursing staff. Review of Systems Review of Systems: All systems reviewed & are unremarkable except as noted in HPI and below Exam Narrative: General: well appearing, appears stated age. HEENT: normocephalic, atraumatic. Mucous membranes moist. EOMI, PERRLA, bilateral sclera anicteric, no conjunctival injection. Neck supple without JVD, lymphadenopathy, or bruit. eye proptosis Respiratory: clear to ascultation bilaterally. No rales/rhonic/wheezes. Cardiovascular: Regular rate and rhythm, normal S1-S2 upon ascultation. No murmurs, rubs, or clicks. PMI is nondisplaced, capillary refill less than 3 second. Abdomen: Soft, round, no pulsatile masses, nondistended and nontender. No rebound, no guarding. No CVA tenderness, no hepatosplenomegaly. Bowel sounds present to all four quadrants. No high pitch or tinkling sounds, resonant to percussion. Extremities: No cyanosis, clubbing, or edema present. Pulses are palpable 2/2. Active ROM to all four extremities. Neuro: Alert and orientated x 1. PERRLA. follows comands Skin: Warm, dry, and intact, multiple abrasions on the back noted Psych: pleasant, cooperative, normal speech, normal affect, no hallucinations, no dysarthia Objective Data Vital Signs Vital Signs: Vital Signs - 24 hr 05/12/24 09:43 05/12/24 09:53 05/12/24 10:00 Temperature Pulse Rate 90 91 Respiratory Rate Blood Pressure Pulse Oximetry Oxygen Delivery Room Air 05/12/24 11:28 05/12/24 11:28 05/12/24 11:45 Temperature Pulse Rate 91 91 73 Respiratory Rate 14 16 Blood Pressure 89/42 L Pulse Oximetry 98 100 Oxygen Delivery Room Air 05/12/24 12:54 05/12/24 14:00 05/12/24 15:52 Temperature Pulse Rate 73 73 75 Respiratory Rate 16 18 Blood Pressure 89/42 L 97/50 L Pulse Oximetry 100 100 Oxygen Delivery 05/12/24 16:00 05/12/24 16:00 05/12/24 17:53 Temperature Pulse Rate 75 75 76 Respiratory Rate 18 Blood Pressure Pulse Oximetry 100 Oxygen Delivery Room Air 05/12/24 20:14 05/12/24 23:37 05/13/24 04:37 Temperature 98 F 98.2 F 98.5 F Pulse Rate 87 102 H 90 Respiratory Rate 18 20 18 Blood Pressure 115/57 L 108/50 L 110/63 Pulse Oximetry 100 100 98 Oxygen Delivery 05/13/24 07:45 Temperature 97.4 F L Pulse Rate 91 Respiratory Rate 22 H Blood Pressure 112/55 L Pulse Oximetry 99 Oxygen Delivery Intake/Output Intake/Output: Intake & Output 05/10/24 05/11/24 05/13/24 05/13/24 23:59 23:59 00:59 23:59 Intake Total 3077.1 2514 300 Output Total 1400 500 Balance 3077.1 1114 -200 Meds/Results Medications: Active Medications Generic Name Dose Route Start Last Admin Trade Name Freq PRN Reason Stop Dose Admin Acetaminophen 650 mg 05/11/24 15:01 Acetaminophen 325 Mg Tablet PO Q4H PRN Mild Pain (1-3) or Fever Acetaminophen 650 mg 05/12/24 14:46 Acetaminophen 325 Mg Tablet PO Q4H PRN fall Hydrocodone Bitart/Acetaminophen 1 tab 05/12/24 19:38 05/13/24 01:38 Hydrocodone/Acetaminophen (*Crx) 5-325 Mg Tablet PO 1 tab Q6H PRN Administration Pain Rated 4-6 Aspirin 81 mg 05/12/24 09:00 05/12/24 09:53 Aspirin 81 Mg Enteric Tablet PO 81 mg DAILY CESAR Administration Atenolol 50 mg 05/12/24 09:00 05/12/24 09:53 Atenolol 50 Mg Tablet PO 50 mg DAILY CESAR Administration Atorvastatin Calcium 40 mg 05/11/24 23:10 05/11/24 23:34 Atorvastatin 40 Mg Tablet PO 40 mg QPM [facility] Administration Dextrose 12.5 gm 05/11/24 23:08 Dextrose 50% 25 Gm/50 Ml Syringe IV PUSH PRN PRN Hypoglycemia Protocol Docusate Sodium 100 mg 05/12/24 09:00 05/12/24 09:53 Docusate Sodium 100 Mg Capsule PO 100 mg DAILY CESAR Administration Glucagon 1 mg 05/11/24 23:08 Glucagon For Inj 1 Mg Vial IM PRN PRN Hypoglycemia Protocol Glucose 15 gm 05/11/24 23:08 Glucose Oral Gel 15 Gm Of Glucse In 37.5 Gm Tube PO PRN PRN Hypoglycemia Protocol Dextrose 1,000 mls @ 100 mls/hr 05/11/24 23:08 Dextrose 5% 1,000 Ml IVPB PRN PRN Hypoglycemia Protocol Sodium Chloride 250 mls @ 30 mls/hr 05/13/24 06:35 Normal Saline Iv IV CONT 05/13/24 14:54 .Q8H20M STA Sodium Bicarbonate 150 meq/ 1,150 mls @ 50 mls/hr 05/13/24 08:10 Sterile Water IV CONT .Q23H [facility] Insulin Aspart 4 - 8 units 05/12/24 08:00 05/12/24 17:26 Insulin Aspart (*Bkc) 100 Units/Ml SUB-Q Not Given TIDWM [facility] Protocol Insulin Aspart 2 - 4 units 05/12/24 21:00 05/12/24 23:00 Insulin Aspart (*Bkc) 100 Units/Ml SUB-Q Not Given HS [facility] Protocol Insulin Glargine 11 units 05/11/24 23:10 05/12/24 23:00 Insulin Glargine (*Bkc) 100 Units/Ml 0.15 units/kg (11 units) Not Given SUB-Q HS [facility] Ondansetron HCl 4 mg 05/11/24 14:08 05/11/24 23:44 Ondansetron Inj 4 Mg/2 Ml Vial IV PUSH 4 mg Q4H PRN Administration Nausea Pantoprazole Sodium 40 mg 05/13/24 08:05 Pantoprazole Sodium Iv 40 Mg Vial IV PUSH Q12HR [facility] Radiology Results: ITS Impressions Chest X-Ray 05/11/24 11:38 IMPRESSION: 1. Widening of the superior mediastinum, which may be seen with lipomatosis or a tortuous aorta. Malignancy is not excluded. Chest CT is recommended if this area is not included on the pending cervical spine CT. Chest/Abdomen/Pelvis CT 05/11/24 12:07 IMPRESSION: 1. Multinodular goiter extending into the mediastinum correlating with the chest radiograph abnormality. 2. Bilateral nonobstructing kidney stones. Cervical Spine CT 05/11/24 12:13 IMPRESSION: 1. No fracture. 2. Severe cervical spondylosis. 3. Multinodular goiter extending into the mediastinum. Hip/Pelvis X-Ray 05/12/24 12:24 Impression: Acute intertrochanteric fracture of the proximal right femur, as detailed above. Advanced degenerative change of the right hip joint. Head CT 05/12/24 13:17 Impression: No intracranial hemorrhage, mass, or acute infarct. Atrophy and chronic white matter changes, as above. Thyroid Ultrasound 05/13/24 07:58 IMPRESSION: 1. Multinodular goiter. The portion of the goiter in the mediastinum seen on CT is not visible by ultrasound. Consider ultrasound-guided fine-needle aspiration of the 19 mm right thyroid nodule. Labs Labs: Laboratory Results - last 24 hr 05/12/24 05/12/24 05/12/24 03:50 11:42 16:26 WBC RBC Hgb Hct MCV MCH MCHC RDW Plt Count MPV Immature Gran % (Auto) Neut % (Auto) Lymph % (Auto) [place] % (Auto) Eos % (Auto) Baso % (Auto) Lymph # (Auto) [place] # (Auto) Eos # (Auto) Baso # (Auto) Abs Immat Gran (auto) Absolute Neuts (auto) Absolute Nucleated RBC Nucleated RBC % Sodium Potassium Chloride Carbon Dioxide Anion Gap BUN Creatinine Estim Creat Clear Calc Estimated GFR Glucose POC Capillary Glucose 201 H 140 H Hemoglobin A1c 6.6 H Calcium Magnesium Total Bilirubin AST ALT Alkaline Phosphatase Total Protein Albumin Prealbumin 7.7 L Stl Occult Blood (IFOB) Blood Type Antibody Screen Crossmatch 05/12/24 05/13/24 05/13/24 19:38 04:46 05:06 WBC 18.4 H RBC 2.70 L Hgb 7.5 L Hct 23.5 L MCV 87.0 MCH 27.8 MCHC 31.9 L RDW 14.2 Plt Count 311 MPV 10.0 Immature Gran % (Auto) 1.3 H Neut % (Auto) 85.5 H Lymph % (Auto) 6.6 L [place] % (Auto) 6.4 Eos % (Auto) 0.0 Baso % (Auto) 0.2 Lymph # (Auto) 1.22 [place] # (Auto) 1.2 H Eos # (Auto) 0.0 Baso # (Auto) 0.0 Abs Immat Gran (auto) 0.23 H Absolute Neuts (auto) 15.8 H Absolute Nucleated RBC 0.020 H Nucleated RBC % 0.1 Sodium 134 L Potassium 3.7 Chloride 110 H Carbon Dioxide 13 L Anion Gap 11 BUN 60 H D Creatinine 1.16 H Estim Creat Clear Calc 36 Estimated GFR 46 L Glucose 270 H POC Capillary Glucose 172 H Hemoglobin A1c Calcium 7.0 L Magnesium 1.3 L Total Bilirubin 0.3 AST 30 ALT 23 Alkaline Phosphatase 60 Total Protein 4.0 L Albumin 2.0 L Prealbumin Stl Occult Blood (IFOB) Positive H Blood Type Antibody Screen Crossmatch 05/13/24 05/13/24 06:45 07:27 WBC RBC Hgb Hct MCV MCH MCHC RDW Plt Count MPV Immature Gran % (Auto) Neut % (Auto) Lymph % (Auto) [place] % (Auto) Eos % (Auto) Baso % (Auto) Lymph # (Auto) [place] # (Auto) Eos # (Auto) Baso # (Auto) Abs Immat Gran (auto) Absolute Neuts (auto) Absolute Nucleated RBC Nucleated RBC % Sodium Potassium Chloride Carbon Dioxide Anion Gap BUN Creatinine Estim Creat Clear Calc Estimated GFR Glucose POC Capillary Glucose 268 H Hemoglobin A1c Calcium Magnesium Total Bilirubin AST ALT Alkaline Phosphatase Total Protein Albumin Prealbumin Stl Occult Blood (IFOB) Blood Type O Positive Antibody Screen Negative Crossmatch See Detail
[2024-05-13] MEDS: INSULIN ASPART (*BKC) 100 UNITS/ML SUB-Q ×2 (08:15→12:10)
[2024-05-13] MEDS: PANTOPRAZOLE SODIUM IV 40 MG VIAL IV PUSH (08:18)
--- NOTE | 2024-05-13 08:31 | PCOTNOTE ---
Pt needs an OT re-evaluation due to fall with hip fx but is currently pending ortho sx to repair fx so will wait until that happens and continue to follow.
--- NOTE | 2024-05-13 08:33 | PCPTNOTE ---
Patient is pending surgery for fracture. Will follow.
[2024-05-13 08:42] LABS: Toxigenic C. Diff POSITIVE (NEGATIVE)
[2024-05-13] MEDS: SODIUM BICARBONATE 8.4% 150 MEQ in WATER, STERILE FOR INJECTION 950 ML 47.83 MEQ IV CONT (10:05)
[2024-05-13] MEDS: VANCOMYCIN HCL 125 MG ORAL CAPSULE PO ×2 (10:06→12:08)
[2024-05-13] MEDS: SODIUM CHLORIDE 0.9% IV 250 ML 30 ML IV CONT (10:06)
[2024-05-13] MEDS: MAGNESIUM SULF 2 GM/WATER 50ML 2 GM/50 ML BAG IVPB (10:24)
--- NOTE | 2024-05-13 10:24 | P.PNOP_ITS ---
Progress Note: A&P Assessment and Plan (1) Fracture, intertrochanteric, right femur: Qualifiers: Encounter type: initial encounter Fracture type: closed Fracture alignment: displaced Qualified Code(s): S72.141A - Displaced intertrochanteric fracture of right femur, initial encounter for closed fracture Code(s): S72.141A - Displaced intertrochanteric fracture of right femur, initial encounter for closed fracture Status: Acute Assessment and Plan: Hospital day 3. Patient sustained a right intertrochanteric hip fracture approximately 24 hours ago. We were hoping to have her medically stable to proceed with internal fixation of her right intertrochanteric hip fracture today however early this morning she started having liquid stools that were mixed with purple blood and her hemoglobin dropped from 9.2 yesterday to 7.5 today indicating a significant GI bleed. When she was admitted 2 days ago her hemoglobin was 12.9. She was noted to be severely dehydrated and was given 2 units of IV fluids to correct that and her drop of hemoglobin to 9.2 was thought most likely related to correction of severe dehydration plus some blood loss from her hip fracture. I have consult the GI specialist to as started her on bicarbonate and pantopra zole. I ordered 1 unit of packed red blood cells at 630 this morning. The unit of blood is ready and the nurse is going to pick it up right now. Also, her BUN has gone up to 60 and her creatinine has gone up to 1.16 indicating acute renal failure. I have consulted the science faculty member. Patient is receiving 50 cc/hour IV fluids with bicarb. She may need more fluid resuscitation to this given her GI bleeding and liquid stools from her colon. I am going to reach out to the hospitalist to see if they feel increasing her IV fluids would be appropriate. Since she will be at high risk for DVT because of her hip fracture, if it is confirmed that she has a GI bleed, this will be a relative contraindication to anticoagulation and therefore 1 must consider placement of a vena cava filter to prevent pulmonary embolism from the lower extremities. I will confer with the GI specialist once she has been evaluated for his opinion on safety of anticoagulation after surgery for her hip. I have consulted the general surgeons for their opinion. She had a positive C difficile toxin test. She has been started on oral vancomycin. I will be ready to proceed with surgical stabilization of her right hip fracture when she is medically stable to proceed. On exam patient is awake. She is complaining of pain in the right hip today. Unfortunately given her confusion she continues to move around in bed and I reminded her that it would be best for her to lay supine with a pillow underneath her thigh knee and calf for support and try to avoid moving her leg. A sitter tells me she has been even laying prone at times. She remains confused. 35 minutes were spent in total care this patient more than half this time spent in [id number] care. (2) GI bleed: Qualifiers: GI bleed type/associated pathology: unspecified gastrointestinal hemorrhage type Qualified Code(s): K92.2 - Gastrointestinal hemorrhage, unspecified Code(s): K92.2 - Gastrointestinal hemorrhage, unspecified Status: Acute (3) C. difficile enteritis: Code(s): A04.72 - Enterocolitis due to Clostridium difficile, not specified as recurrent Status: Acute Subjective Subjective Date/Time Seen: 05/13/24 10:24 Objective Data Vital Signs Vital Signs: Vital Signs - 24 hr 05/12/24 11:28 05/12/24 11:28 05/12/24 11:45 Temperature Pulse Rate 91 91 73 Respiratory Rate 14 16 Blood Pressure 89/42 L Pulse Oximetry 98 100 Oxygen Delivery Room Air 05/12/24 12:54 05/12/24 14:00 05/12/24 15:52 Temperature Pulse Rate 73 73 75 Respiratory Rate 16 18 Blood Pressure 89/42 L 97/50 L Pulse Oximetry 100 100 Oxygen Delivery 05/12/24 16:00 05/12/24 16:00 05/12/24 17:53 Temperature Pulse Rate 75 75 76 Respiratory Rate 18 Blood Pressure Pulse Oximetry 100 Oxygen Delivery Room Air 05/12/24 20:14 05/12/24 22:50 05/12/24 23:37 Temperature 36.6 C 36.8 C Pulse Rate 87 85 102 H Respiratory Rate 18 16 20 Blood Pressure 115/57 L 108/50 L Pulse Oximetry 100 100 100 Oxygen Delivery Room Air 05/13/24 04:37 05/13/24 07:45 05/13/24 09:53 Temperature 36.9 C 36.3 C L Pulse Rate 90 91 Respiratory Rate 18 22 H Blood Pressure 110/63 112/55 L Pulse Oximetry 98 99 98 Oxygen Delivery Room Air Intake/Output Intake/Output: Intake & Output 05/10/24 05/11/24 05/13/24 05/13/24 23:59 23:59 00:59 23:59 Intake Total 3077.1 2514 300 Output Total 1400 500 Balance 3077.1 1114 -200 Meds/Results Medications: Active Medications Generic Name Dose Route Start Last Admin Trade Name Freq PRN Reason Stop Dose Admin Acetaminophen 650 mg 05/12/24 14:46 Acetaminophen 325 Mg Tablet PO Q4H PRN fall Hydrocodone Bitart/Acetaminophen 1 tab 05/12/24 19:38 05/13/24 01:38 Hydrocodone/Acetaminophen (*Crx) 5-325 Mg Tablet PO 1 tab Q6H PRN Administration Pain Rated 4-6 Aspirin 81 mg 05/12/24 09:00 05/12/24 09:53 Aspirin 81 Mg Enteric Tablet PO 81 mg DAILY [facility]ESAR Administration Atenolol 50 mg 05/12/24 09:00 05/12/24 09:53 Atenolol 50 Mg Tablet PO 50 mg DAILY [facility] Administration Atorvastatin Calcium 40 mg 05/11/24 23:10 05/11/24 23:34 Atorvastatin 40 Mg Tablet PO 40 mg QPM [facility] Administration Dextrose 12.5 gm 05/11/24 23:08 Dextrose 50% 25 Gm/50 Ml Syringe IV PUSH PRN PRN Hypoglycemia Protocol Docusate Sodium 100 mg 05/12/24 09:00 05/13/24 08:16 Docusate Sodium 100 Mg Capsule PO Not Given DAILY [facility] Glucagon 1 mg 05/11/24 23:08 Glucagon For Inj 1 Mg Vial IM PRN PRN Hypoglycemia Protocol Glucose 15 gm 05/11/24 23:08 Glucose Oral Gel 15 Gm Of Glucse In 37.5 Gm Tube PO PRN PRN Hypoglycemia Protocol Dextrose 1,000 mls @ 100 mls/hr 05/11/24 23:08 Dextrose 5% 1,000 Ml IVPB PRN PRN Hypoglycemia Protocol Sodium Chloride 250 mls @ 30 mls/hr 05/13/24 06:35 05/13/24 10:06 Normal Saline Iv IV CONT 05/13/24 14:54 30 mls/hr .Q8H20M STA Administration Sodium Bicarbonate 150 meq/ 1,100 mls @ 47.826 mls/hr 05/13/24 08:20 05/13/24 10:05 Sterile Water IV CONT 47.83 mls/hr .Q23H [facility] Administration Insulin Aspart 4 - 8 units 05/12/24 08:00 05/13/24 08:15 Insulin Aspart (*Bkc) 100 Units/Ml SUB-Q 5 units TIDWM [facility] Administration Protocol Insulin Aspart 2 - 4 units 05/12/24 21:00 05/12/24 23:00 Insulin Aspart (*Bkc) 100 Units/Ml SUB-Q Not Given HS [facility] Protocol Insulin Glargine 11 units 05/11/24 23:10 05/12/24 23:00 Insulin Glargine (*Bkc) 100 Units/Ml 0.15 units/kg (11 units) Not Given SUB-Q HS [facility] Ondansetron HCl 4 mg 05/11/24 14:08 05/11/24 23:44 Ondansetron Inj 4 Mg/2 Ml Vial IV PUSH 4 mg Q4H PRN Administration Nausea Pantoprazole Sodium 40 mg 05/13/24 08:15 05/13/24 08:18 Pantoprazole Sodium Iv 40 Mg Vial IV PUSH 40 mg Q12HR [facility]AR Administration Vancomycin HCl 125 mg 05/13/24 09:00 05/13/24 10:06 Vancomycin Hcl 125 Mg Oral Capsule PO 125 mg Q6HR CESAR Administration Radiology Results: ITS Impressions Chest X-Ray 05/11/24 11:38 IMPRESSION: 1. Widening of the superior mediastinum, which may be seen with lipomatosis or a tortuous aorta. Malignancy is not excluded. Chest CT is recommended if this area is not included on the pending cervical spine CT. Chest/Abdomen/Pelvis CT 05/11/24 12:07 IMPRESSION: 1. Multinodular goiter extending into the mediastinum correlating with the chest radiograph abnormality. 2. Bilateral nonobstructing kidney stones. Cervical Spine CT 05/11/24 12:13 IMPRESSION: 1. No fracture. 2. Severe cervical spondylosis. 3. Multinodular goiter extending into the mediastinum. Hip/Pelvis X-Ray 05/12/24 12:24 Impression: Acute intertrochanteric fracture of the proximal right femur, as detailed above. Advanced degenerative change of the right hip joint. Head CT 05/12/24 13:17 Impression: No intracranial hemorrhage, mass, or acute infarct. Atrophy and chronic white matter changes, as above. Thyroid Ultrasound 05/13/24 07:58 IMPRESSION: 1. Multinodular goiter. The portion of the goiter in the mediastinum seen on CT is not visible by ultrasound. Consider ultrasound-guided fine-needle aspiration of the 19 mm right thyroid nodule. Labs Labs: Laboratory Results - last 24 hr 05/12/24 05/12/24 05/12/24 03:50 11:42 16:26 WBC RBC Hgb Hct MCV MCH MCHC RDW Plt Count MPV Immature Gran % (Auto) Neut % (Auto) Lymph % (Auto) [place] % (Auto) Eos % (Auto) Baso % (Auto) Lymph # (Auto) [place] # (Auto) Eos # (Auto) Baso # (Auto) Abs Immat Gran (auto) Absolute Neuts (auto) Absolute Nucleated RBC Nucleated RBC % Sodium Potassium Chloride Carbon Dioxide Anion Gap BUN Creatinine Estim Creat Clear Calc Estimated GFR Glucose POC Capillary Glucose 201 H 140 H Hemoglobin A1c 6.6 H Calcium Magnesium Total Bilirubin AST ALT Alkaline Phosphatase Total Protein Albumin Prealbumin 7.7 L Stl Occult Blood (IFOB) C. difficile (PCR) Blood Type Antibody Screen Crossmatch 05/12/24 05/13/24 05/13/24 19:38 04:46 05:06 WBC 18.4 H RBC 2.70 L Hgb 7.5 L Hct 23.5 L MCV 87.0 MCH 27.8 MCHC 31.9 L RDW 14.2 Plt Count 311 MPV 10.0 Immature Gran % (Auto) 1.3 H Neut % (Auto) 85.5 H Lymph % (Auto) 6.6 L [place] % (Auto) 6.4 Eos % (Auto) 0.0 Baso % (Auto) 0.2 Lymph # (Auto) 1.22 [place] # (Auto) 1.2 H Eos # (Auto) 0.0 Baso # (Auto) 0.0 Abs Immat Gran (auto) 0.23 H Absolute Neuts (auto) 15.8 H Absolute Nucleated RBC 0.020 H Nucleated RBC % 0.1 Sodium 134 L Potassium 3.7 Chloride 110 H Carbon Dioxide 13 L Anion Gap 11 BUN 60 H D Creatinine 1.16 H Estim Creat Clear Calc 36 Estimated GFR 46 L Glucose 270 H POC Capillary Glucose 172 H Hemoglobin A1c Calcium 7.0 L Magnesium 1.3 L Total Bilirubin 0.3 AST 30 ALT 23 Alkaline Phosphatase 60 Total Protein 4.0 L Albumin 2.0 L Prealbumin Stl Occult Blood (IFOB) Positive H C. difficile (PCR) Blood Type Antibody Screen Crossmatch 05/13/24 05/13/24 05/13/24 05:07 06:45 07:27 WBC RBC Hgb Hct MCV MCH MCHC RDW Plt Count MPV Immature Gran % (Auto) Neut % (Auto) Lymph % (Auto) [place] % (Auto) Eos % (Auto) Baso % (Auto) Lymph # (Auto) [place] # (Auto) Eos # (Auto) Baso # (Auto) Abs Immat Gran (auto) Absolute Neuts (auto) Absolute Nucleated RBC Nucleated RBC % Sodium Potassium Chloride Carbon Dioxide Anion Gap BUN Creatinine Estim Creat Clear Calc Estimated GFR Glucose POC Capillary Glucose 268 H Hemoglobin A1c Calcium Magnesium Total Bilirubin AST ALT Alkaline Phosphatase Total Protein Albumin Prealbumin Stl Occult Blood (IFOB) C. difficile (PCR) Positive A* Blood Type O Positive Antibody Screen Negative Crossmatch See Detail
[2024-05-13 12:17] LABS: Glucose Point of Care 304 mg/dl (65-105)
--- NOTE | 2024-05-13 12:57 | P.CDI_ITS ---
CDI Query Clarification Request Encephalopathy has been documented. Please clarify type of encephalopathy: * Metabolic * Toxic * Hepatic * Hypertensive * Other * Unable to Determine ER provider documented Acute encephalopathy, but has not been documented in progress notes. Please clarify if acute encephalopathy has been ruled in or ruled out and clarify type.
--- NOTE | 2024-05-13 14:42 | P.CONGI_ITS ---
<Statement entered by Asif Swain MD - 05/13/24 18:28> I, Asif Swain MD, have provided a substantive portion of the care of this patient and discussed the patient with my Nurse Practitioner. I have reviewed any new relevant radiographic and laboratory results including medications. I agree with her documentation as noted below.?I personally performed the medical decision making and much of the history and exam for this encounter. briefly, she came with confusion, had a fall with femur fracture but then noted melena and surgery was cancelled. She became more obtunded, had more anemia and + C diff. Became sicker and transferred to icu, lactic acidosis. CT scan reviewed and showed possible perforation in proximal jejunum. Surgery on board and talking to family. EGD is not an option anymore. She is critically ill right now. IV antibiotics, protonix, may need intubation and surgery. Assessment and Plan Assessment and plan (1) ABLA (acute blood loss anemia): Code(s): D62 - Acute posthemorrhagic anemia <Shona D. Hellen, TALENT ACQUISITION ADMINISTRATOR - Last Filed: 05/13/24 15:11> Status: Acute <Shona D. Hellen, TALENT ACQUISITION ADMINISTRATOR - Last Filed: 05/13/24 15:11> (2) Melena: Code(s): K92.1 - Melena <Shona D. Hellen, TALENT ACQUISITION ADMINISTRATOR - Last Filed: 05/13/24 15:11> Status: Acute <Shona D. Hellen, TALENT ACQUISITION ADMINISTRATOR - Last Filed: 05/13/24 15:11> (3) C. difficile enteritis: Code(s): A04.72 - Enterocolitis due to Clostridium difficile, not specified as recurrent <Shona D. Hellen, TALENT ACQUISITION ADMINISTRATOR - Last Filed: 05/13/24 15:11> Status: Acute <Shona D. Hellen, TALENT ACQUISITION ADMINISTRATOR - Last Filed: 05/13/24 15:11> (4) GI bleed: Qualifiers: GI bleed type/associated pathology: unspecified gastrointestinal hemorrhage type Qualified Code(s): K92.2 - Gastrointestinal hemorrhage, unspecified <Shona D. Hellen, TALENT ACQUISITION ADMINISTRATOR - Last Filed: 05/13/24 15:11> Code(s): K92.2 - Gastrointestinal hemorrhage, unspecified <Shona GallegosshaladonteAUGUSTINEN - Last Filed: 05/13/24 15:11> Status: Acute <Shona MacedoARIANA - Last Filed: 05/13/24 15:11> Assessment and Plan: 1. ABLA/melena/ C diff diarrhea: Medical history in subjective information limited due to patient's altered mental status. Patient found at home down for unknown amount of time covered in feces. Unclear how long the patient had been experiencing diarrhea. She was seen at [facility] on May 04 with complaints of nausea and vomiting and was diagnosed with a UTI and started on a course of cephalexin. according to records patient has a history of peptic ulcer disease diagnosed around 2016. Use of NSAIDs and aspirin could not be confirmed but according to [id number] at bedside she has not been taking these medications. Yesterday evening patient started having multiple liquid dark stools. She is having black tarry stools that is draining into rectal tube. H&H has been trending down since admission. During her ER visit on the her hemoglobin was normal at 13 and today she is at 8. Patient was supposed to have surgery today for a right femur fracture repair but this was put on hold due to anemia and a and melena. According to surgical note it sounds like the plan may be to put in an IVC filter so that they can avoid anticoagulations after surgery. patient with multiple acute issues including acute renal failure, metabolic encephalopathy, anemia, C diff, leukocytosis, tachycardia, hypotension, femur fracture and confusion requiring a sitter and restraints. * Continue b.i.d. PPI * Care with NSAIDs, aspirin, anticoagulants * continue vanco * start Florastor * Primary care team to continue monitoring electrolytes and correct as needed prior to endoscopy * Primary care team to continue monitoring H&H and transfuse as needed to keep HGB > 7 * further recommendations to follow after Dr. Erazo sees the patient Thank you very much for allowing me to share in the care of this very complex patient. Further recommendations to follow endoscopy This report may have been done utilizing a voice recognition system. Attempts have been made to correct errors. However, there may be uncorrected grammatical, spelling, and recognition errors present. <Shonaalix Macedo APRN - Last Filed: 05/13/24 15:11> GI Consult Note Consult date/time: 05/13/24 14:42 <Shona Macedo, TALENT ACQUISITION ADMINISTRATOR - Last Filed: 05/13/24 15:11> Reason for consult: Acute GI bleed and C-Diff <Shona Macedo APRN - Last Filed: 05/13/24 15:11> HPI: Rosa Maria Love is a 73 year old female HLD, obesity, GERD, peptic ulcer disease, diabetes, history of cholecystectomy, history of umbilical hernia repair as but medical history otherwise limited due to patient's confusion and was brought into the emergency room via EMS on the for altered mental status after being found down at her house covered in feces by friend. GI consulted for acute GI bleed. Patient with multiple acute problems including acute renal failure, metabolic encephalopathy, rhabdomyolysis, femur fracture, melena, anemia and confusion. patient was supposed to go to surgery today for repair of right femur fracture but unfortunately started having black tarry stools last night as well as a decrease in H&H. Hemoglobin was normal on May 04 at 13 and and hemoglobin trended down from 9.2 yesterday to 7.5 today. Patient has a rectal tube in place and is having black tarry liquid stools since yesterday evening. fecal occult blood and C diff positive today. Patient started on vancomycin. Patient is A&O times 0 and is in 4 point restraints with a sitter at bedside only subjective information that the patient was able to provide is that she was having abdominal pain with palpation and abdominal distension. According to daughter in-law Tania who was at bedside the patient was seen at [facility] May 04 for nausea and vomiting and was diagnosed with a UTI and started on Cephalexin. week prior to that she was seen by her PCP Dr. Randhawa treated for flu-like symptoms . Endoscopy history unknown. Family history unknown. Patient does not appear to be on NSAIDs, aspirin, or anticoagulants prior to admission. ENDOSCOPY HISTORY: EGD and colonoscopy history unknown LABS AND STOOL STUDIES: Labs 05/13/2024: Sodium 134, potassium 3.7, BUN 60, creatinine 1.16, GFR 46. WBC is 18, HGB 8, HCT 24, MCV 87, platelets 311, INR 1.0. Total bilirubin 0.3, AST 30, ALT 23, alkaline phosphatase 60, lipase 121, ammonia < 9 Lactic acid 1.8, calcium 7.0, magnesium 1.3 Fecal occult blood positive and C diff positive today IMAGING: CT abd/pelvis w/o contrast 05/11/2024: FINDINGS: CHEST CT: The lungs demonstrate mild atelectasis. There is a 4 mm nodule in right lower lobe, likely benign. There is a 3 mm nodule left upper lobe, likely benign. No pleural effusion. There is a multinodular goiter extending into the mediastinum with largest nodule measuring 3.4 cm. The heart size is normal. There are coronary artery calcifications. No pericardial effusion. There are old healed right rib fractures. There is severe cervical and thoracic spondylosis. ABDOMEN/PELVIS CT: The liver is normal. There are changes of cholecystectomy. Calcifications in the spleen are consistent with old granulomatous disease. The pancreas and adrenal glands are normal. There are least 8 stones in the right kidney and right renal pelvis measuring up to 13 mm. There is a 3.8 cm cyst in left kidney. There is a 4 mm stone in left kidney. There is an umbilical hernia containing fat. There is a Valentin catheter in expected position. There are no dilated loops of bowel. The appendix is normal. There are no dilated loops of bowel. There are no pathologically enlarged lymph nodes. There is no free intraperitoneal fluid. There is subcutaneous fat stranding posterior to the proximal femora, consistent with inflammation. There is severe lumbar spondylosis. IMPRESSION: 1. Multinodular goiter extending into the mediastinum correlating with the chest radiograph abnormality. 2. Bilateral nonobstructing kidney stones. <Shona Macedo APRN - Last Filed: 05/13/24 15:11> Review of Systems 2 Review of Systems: ROS unobtainable: Yes unobtainable due to medical condition and unobtainable due to mental status <Shona Macedo APRN - Last Filed: 05/13/24 15:11> [facility] Past Medical History Medical History: Medical History Pedal edema Osteoarthritis Essential (primary) hypertension Dyslipidemia Degenerative arthritis of knee, bilateral BMI 36.0-36.9,adult Low back pain with right-sided sciatica Class 2 severe obesity with serious comorbidity and body mass index (BMI) of 36.0 to 36.9 in adult Chronic gastroesophageal reflux disease (~2016) PUD (peptic ulcer disease) (~2016) d/t meloxicam: NO GI bleed; h/o hospitalization x 3 d FH: heart attack (~2002) Father @ 83: h/o HTN, hyperlipidemia FH: ovarian cancer in first degree relative (~2002) Mother dx'd @ 65-- @ 67: surgical complications Diabetes <Shona Macedo APRN - Last Filed: 05/13/24 15:11> Surgical History Surgical History: Surgical History History of endometrial ablation 1994 History of lumpectomy of both breasts 1992 - right 1994 - left H/O excision of ganglion cyst 1973 - left wrist History of umbilical hernia repair 2003 History of cholecystectomy 2004 H/O lithotripsy (~2006) 2007 Surgical history unknown <Shona Macedo APRN - Last Filed: 05/13/24 15:11> Family History Family History: Family History Mother Ovarian cancer Dementia Hypertension Diabetes mellitus Hyperlipidemia Father Myocardial infarct Hypertension Hyperlipidemia Broken heart syndrome Sibling Diabetes mellitus Hypertension Hyperlipidemia Sibling Glioblastoma Hypertension Hyperlipidemia Father , @ 83 (2002) Acute myocardial infarction Heart disease Hypertension Mother Epithelial ovarian cancer, FIGO stage IIIB Diabetes mellitus Sibling Brain malignant neoplasm <Shona Macedo APRN - Last Filed: 05/13/24 15:11> Social History Social History: Social History Smoking status: Never smoker Second hand tobacco smoke exposure: No Alcohol intake: never Substance use: never Substance use type: does not use Do You Feel Safe in your Home?: Yes Lack of Transportation: No Lack of Food: Never True Current Housing: I Have Housing Concerned About Future Housing: No Difficulty Paying Gas/Electric Bills: No Difficulty Paying for Meds: No Currently Unemployed: No Education: Master's Degree or Higher Difficulty w/ Childcare or Family Care: No Living arrangements: alone Occupation/Education: retired Additional occupation/education comments: 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/[employer]; Gender identity (if verbalized by the patient): Female Spiritual care concerns: No Agree to blood products: No <Shona Macedo, ARIANA - Last Filed: 05/13/24 15:11> Meds Home Medications and Allergies Home medications: Home Medications ?Medication ?Instructions ?Recorded ?Confirmed ?Type aspirin 81 mg tablet,delayed 81 mg PO DAILY 04/24/19 01/02/20 History release (Adult Aspirin Regimen) atorvastatin 40 mg tablet See Rx Instructions .Route .COMPLEX 04/24/19 01/02/20 History flu vacc [id number](65yr up)PF 180 ml IM 04/24/19 01/02/20 History mcg/0.5 mL intramuscular syringe furosemide 20 mg tablet 20 mg PO QAM PRN edema #90 tabs 04/24/19 01/02/20 Rx glimepiride 4 mg tablet 4 mg PO BID #180 tabs 04/24/19 01/02/20 Rx lisinopril 10 mg tablet 10 mg PO DAILY #90 tabs 04/24/19 01/02/20 Rx multivitamin 1 tablet PO DAILY 04/24/19 01/02/20 History omeprazole 10 mg capsule,delayed 10 mg PO DAILY 04/24/19 01/02/20 History release potassium chloride 20 mEq 20 meq PO DAILY 04/24/19 01/02/20 History tablet,extended release vitamins A,C,B-lteq-aqhdap 4,296 1 cap PO BID 04/24/19 01/02/20 History mcg-226 mg-90 mg capsule (PreserVision AREDS) linagliptin 5 mg tablet (Tradjenta) 5 mg PO QAM #90 tabs 07/15/19 01/02/20 Rx acetaminophen 650 mg 650 mg PO TID 01/02/20 01/02/20 History tablet,extended release blood sugar diagnostic (Freestyle #10 ea 01/02/20 01/02/20 History InsuLinx Test Strips) empagliflozin 10 mg tablet 10 mg PO DAILY 01/02/20 01/02/20 History metformin 500 mg tablet,extended 1,000 mg PO BID 01/02/20 01/02/20 History release 24 hr metoprolol succinate 25 mg 25 mg PO DAILY #90 tabs 01/02/20 01/02/20 Rx tablet,extended release 24 hr tramadol 50 mg tablet 50 mg PO BID PRN pain #60 tabs 11/26/20 Rx cephalexin 500 mg capsule 500 mg PO Q12H #10 caps 05/04/24 Rx promethazine 25 mg tablet 25 mg PO Q6H PRN nausea and 05/04/24 Rx vomiting #10 tabs simethicone 125 mg capsule 125 mg PO QID abdominal distention 05/04/24 Rx #20 caps alendronate 70 mg tablet 70 mg PO WEEKLY 05/11/24 05/11/24 History aspirin 81 mg tablet,delayed 81 mg PO DAILY 05/11/24 05/11/24 History release (Adult Aspirin Regimen) atorvastatin 40 mg tablet 40 mg PO QPM 05/11/24 05/11/24 History ergocalciferol (vitamin D2) 1,250 50,000 unit PO WEEKLY 05/11/24 05/11/24 History mcg (50,000 unit) capsule furosemide 20 mg tablet 20 mg PO DAILY 05/11/24 05/11/24 History gabapentin 100 mg capsule 100 mg PO TID 05/11/24 05/11/24 History glimepiride 4 mg tablet 4 mg PO BID 05/11/24 05/11/24 History lisinopril 10 mg tablet 10 mg PO DAILY 05/11/24 05/11/24 History metformin 1,000 mg tablet 1,000 mg PO BID 05/11/24 05/11/24 History omeprazole 20 mg capsule,delayed 20 mg PO DAILY 05/11/24 05/11/24 History release potassium chloride 20 mEq 20 meq PO DAILY 05/11/24 05/11/24 History tablet,extended release(part/cryst) tramadol 50 mg tablet 50 mg PO QID PRN pain 05/11/24 05/11/24 History Shruti Macedo APRN - Last Filed: 05/13/24 15:11> Allergies/Adverse reactions: Allergies Allergy/AdvReac Type Severity Reaction Status Date / Time acetaminophen (From Mapap AdvReac Unknown Unknown Verified 05/13/24 10:21 (acetaminophen)) gabapentin AdvReac Unknown Unknown Verified 05/13/24 10:21 meloxicam AdvReac Unknown Unknown Verified 05/13/24 10:21 propoxyphene AdvReac Unknown Unknown Verified 05/13/24 10:21 <Shona Macedo, TALENT ACQUISITION ADMINISTRATOR - Last Filed: 05/13/24 15:11> Vital Signs Vital Signs - 24 hr 05/12/24 15:52 05/12/24 16:00 05/12/24 16:00 Temperature Pulse Rate 75 75 75 Respiratory Rate 18 18 Blood Pressure 97/50 L Pulse Oximetry 100 100 Oxygen Delivery Room Air 05/12/24 17:53 05/12/24 20:00 05/12/24 20:14 Temperature 98 F Pulse Rate 76 88 87 Respiratory Rate 18 Blood Pressure 115/57 L Pulse Oximetry 100 Oxygen Delivery 05/12/24 22:00 05/12/24 22:50 05/12/24 23:37 Temperature 98.2 F Pulse Rate 85 85 102 H Respiratory Rate 16 20 Blood Pressure 108/50 L Pulse Oximetry 100 100 Oxygen Delivery Room Air 05/12/24 23:40 05/13/24 00:00 05/13/24 02:00 Temperature Pulse Rate 102 H 101 H 102 H Respiratory Rate 20 Blood Pressure Pulse Oximetry 100 Oxygen Delivery Room Air 05/13/24 03:27 05/13/24 04:00 05/13/24 04:37 Temperature 98.5 F Pulse Rate 90 109 H 90 Respiratory Rate 18 18 Blood Pressure 110/63 Pulse Oximetry 98 98 Oxygen Delivery Room Air 05/13/24 06:00 05/13/24 07:45 05/13/24 09:53 Temperature 97.4 F L Pulse Rate 102 H 91 Respiratory Rate 22 H Blood Pressure 112/55 L Pulse Oximetry 99 98 Oxygen Delivery Room Air 05/13/24 10:41 05/13/24 10:59 05/13/24 11:59 Temperature 97.4 F L 97.7 F 98.1 F Pulse Rate 105 H 107 H 108 H Respiratory Rate 20 22 H 26 H Blood Pressure 115/66 100/56 L 112/57 L Pulse Oximetry 100 98 100 Oxygen Delivery 05/13/24 12:00 05/13/24 12:59 05/13/24 14:08 Temperature 98.1 F 97.5 F L 98.8 F Pulse Rate 108 H 109 H 107 H Respiratory Rate 26 H 24 H 26 H Blood Pressure 112/57 L 98/60 L 102/56 L Pulse Oximetry 100 97 96 Oxygen Delivery <Shona Gallegosshaladonte TALENT ACQUISITION ADMINISTRATOR - Last Filed: 05/13/24 15:11> Exam 2 Const: General: no acute distress and uncomfortable <Shona Gallegosshaladonte TALENT ACQUISITION ADMINISTRATOR - Last Filed: 05/13/24 15:11> Eyes: Sclera: sclerae normal <Shoan Gallegosshaladonte TALENT ACQUISITION ADMINISTRATOR - Last Filed: 05/13/24 15:11> Pupils: Equal, round and reactive pupils present <Shona Gallegosshaladonte TALENT ACQUISITION ADMINISTRATOR - Last Filed: 05/13/24 15:11> Neck: Neck: No no JVD <Sohna DiazGlo Rosyshaladonte TALENT ACQUISITION ADMINISTRATOR - Last Filed: 05/13/24 15:11> Resp: Auscultation: diminished lung sounds <Shona DiazGlo Rosyshaladonte TALENT ACQUISITION ADMINISTRATOR Last Filed: 05/13/24 15:11> Cardio: Rate: tachycardic <Shona GallegosshalaAUGUSTINE kentN Last Filed: 05/13/24 15:11> Rhythm: regular rhythm <Shona Macedo TALENT ACQUISITION ADMINISTRATOR - Last Filed: 05/13/24 15:11> GI: Inspection: distended <Shona DiazGlo Rosyshaladonte TALENT ACQUISITION ADMINISTRATOR - Last Filed: 05/13/24 15:11> GI Palp: Yes Soft to palpation, Yes Tenderness to palpation present (GI) and No Guarding due to palpation present (GI) <Shona DiazGlo Rosyjonelle TALENT ACQUISITION ADMINISTRATOR Last Filed: 05/13/24 15:11> Auscultation: abnormal bowel sounds <Shona DiazGlo Rosyjonelle TALENT ACQUISITION ADMINISTRATOR - Last Filed: 05/13/24 15:11> : General: Yes bladder normal to palpation <Shona DiazGlo Rosyjonelle TALENT ACQUISITION ADMINISTRATOR - Last Filed: 05/13/24 15:11> Skin: Wounds: wounds noted <Shona DiazGlo Rosyjonelle TALENT ACQUISITION ADMINISTRATOR Last Filed: 05/13/24 15:11> Neuro: Other: confused A&O 0 <Shona DiazGlo Macedo TALENT ACQUISITION ADMINISTRATOR - Last Filed: 05/13/24 15:11> Psych: Mental Status: mental status grossly abnormal <Shona Macedo APRN - Last Filed: 05/13/24 15:11> Results Labs CBC & Chem 7: 05/13/24 15:04 05/13/24 15:04 <Shona Macedo APRN - Last Filed: 05/13/24 15:11> Labs: Short CBC 05/13/24 Range/Units 04:46 WBC 18.4 H (4.5-10.0) K/mm3 Hgb 7.5 L (12.0-15.0) g/dL Hct 23.5 L (37.0-47.0) % Plt Count 311 (150-375) k/mm3 BMP 05/13/24 04:46 Sodium 134 L Potassium 3.7 Chloride 110 H Carbon Dioxide 13 L BUN 60 H D Creatinine 1.16 H Glucose 270 H Calcium 7.0 L Liver Function 05/13/24 Range/Units 04:46 Total Bilirubin 0.3 (0.2-1.3) mg/dL AST 30 (14-36) U/L ALT 23 (6-35) U/L Alkaline Phosphatase 60 (38-126) U/L Albumin 2.0 L (3.5-5.1) g/dL <Shona Macedo APRN - Last Filed: 05/13/24 15:11>
--- NOTE | 2024-05-13 15:03 | P.CONGS_ITS ---
Assessment and Plan Assessment and plan (1) GI bleed: Qualifiers: GI bleed type/associated pathology: unspecified gastrointestinal hemorrhage type Qualified Code(s): K92.2 - Gastrointestinal hemorrhage, unspecified Code(s): K92.2 - Gastrointestinal hemorrhage, unspecified Status: Acute Assessment and Plan: We have been consulted for evaluation of possible IVC filter placement in the setting of a patient who was admitted with a right hip fracture, as well as multiple other acute issues listed below, including GI bleed. Orthopedics is planning to proceed with surgical stabilization of the right hip fracture during this hospitalization once medically stabilized. She is currently unable to be anticoagulated postoperatively due to her acute GI bleed. GI has been consulted for the GI bleed prior to proceeding with her hip surgery. She does not currently have a known DVT that would indicate a need for urgent IVC filter placement. Will await further workup of her other acute issues and follow along to help determine if there is a clear indication for IVC filter placement. (2) Fracture, intertrochanteric, right femur: Qualifiers: Encounter type: initial encounter Fracture type: closed Fracture alignment: displaced Qualified Code(s): S72.141A - Displaced intertrochanteric fracture of right femur, initial encounter for closed fracture Code(s): S72.141A - Displaced intertrochanteric fracture of right femur, initial encounter for closed fracture Status: Acute Assessment and Plan: Ortho planning to proceed with ORIF once medically stable (3) C. difficile enteritis: Code(s): A04.72 - Enterocolitis due to Clostridium difficile, not specified as recurrent Status: Acute Assessment and Plan: Continue oral vancomycin (4) ABLA (acute blood loss anemia): Code(s): D62 - Acute posthemorrhagic anemia Status: Acute Assessment and Plan: GI consulted, trend labs (5) Acute encephalopathy: Code(s): G93.40 - Encephalopathy, unspecified Status: Acute (6) Type 2 diabetes mellitus with other circulatory complications: Onset Date: ~1973 Code(s): E11.59 - Type 2 diabetes mellitus with other circulatory complications Status: Acute (7) Self neglect: Code(s): R46.89 - Other symptoms and signs involving appearance and behavior Status: Acute (8) Rhabdomyolysis: Code(s): M62.82 - Rhabdomyolysis Status: Acute Plan I have discussed the patient's case and plan of care with Dr. Chavis. History of Present Illness Consult details Consult date: 05/13/24 Reason for consult: other (Possible IVC filter placement) Requesting physician: Candelario Prieto MD Narrative: This is a 73-year-old woman who we have been asked to see in surgical consultation for possible IVC filter placement. She was brought into the ED 2 days ago after being found down covered in stool at her house by EMS with an altered mental status. Workup in the ED showed mild leukocytosis, elevated total CK, dehydration, and right intratrochanteric hip fracture. She was admitted to the IMU and Orthopedic surgery was consulted. Overnight, she developed melanotic stools and her hemoglobin has been trending down down from 12.9 to 9.2 and down to 7.5 this morning. She received 1 unit PRBCs today. Stool studies were sent and she tested positive for C.diff and positive stool occult. GI has been consulted for melena. Orthopedic surgery plans to proceed with surgical stabilization of her right hip fracture when medically stable. They have consulted our service for evaluation of possible IVC filter placement in the setting of a hip fracture with contraindication for anticoagulation. No current known DVT. The patient is confused and unable to provide any additional history, therefore it is obtained by review of the EMR. Review of Systems 2 Review of Systems: ROS unobtainable: Yes unobtainable due to mental status PMFSH Past Medical History Medical History Pedal edema Osteoarthritis Essential (primary) hypertension Dyslipidemia Degenerative arthritis of knee, bilateral BMI 36.0-36.9,adult Low back pain with right-sided sciatica Class 2 severe obesity with serious comorbidity and body mass index (BMI) of 36.0 to 36.9 in adult Chronic gastroesophageal reflux disease (~2017) PUD (peptic ulcer disease) (~2017) d/t meloxicam: NO GI bleed; h/o hospitalization x 3 d FH: heart attack (~2002) Father @ 83: h/o HTN, hyperlipidemia FH: ovarian cancer in first degree relative (~2002) Mother dx'd @ 65-- @ 67: surgical complications Diabetes Surgical History Surgical History History of endometrial ablation 1994 History of lumpectomy of both breasts 1992 - right 1994 - left H/O excision of ganglion cyst 1973 - left wrist History of umbilical hernia repair 2003 History of cholecystectomy 2004 H/O lithotripsy (~2006) 2007 Surgical history unknown Family History Family History Mother Ovarian cancer Dementia Hypertension Diabetes mellitus Hyperlipidemia Father Myocardial infarct Hypertension Hyperlipidemia Broken heart syndrome Sibling Diabetes mellitus Hypertension Hyperlipidemia Sibling Glioblastoma Hypertension Hyperlipidemia Father , @ 83 (2002) Acute myocardial infarction Heart disease Hypertension Mother Epithelial ovarian cancer, FIGO stage IIIB Diabetes mellitus Sibling Brain malignant neoplasm Social History Social History Smoking status: Never smoker Second hand tobacco smoke exposure: No Alcohol intake: never Substance use: never Substance use type: does not use Do You Feel Safe in your Home?: Yes Lack of Transportation: No Lack of Food: Never True Current Housing: I Have Housing Concerned About Future Housing: No Difficulty Paying Gas/Electric Bills: No Difficulty Paying for Meds: No Currently Unemployed: No Education: Master's Degree or Higher Difficulty w/ Childcare or Family Care: No Living arrangements: alone Occupation/Education: retired Additional occupation/education comments: 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/[employer]; Gender identity (if verbalized by the patient): Female Spiritual care concerns: No Agree to blood products: No Meds Home Medications and Allergies Home Medications ?Medication ?Instructions ?Recorded ?Confirmed ?Type aspirin 81 mg tablet,delayed 81 mg PO DAILY 04/24/19 01/02/20 History release (Adult Aspirin Regimen) atorvastatin 40 mg tablet See Rx Instructions .Route .COMPLEX 04/24/19 01/02/20 History flu vacc [id number](65yr up)PF 180 ml IM 04/24/19 01/02/20 History mcg/0.5 mL intramuscular syringe furosemide 20 mg tablet 20 mg PO QAM PRN edema #90 tabs 04/24/19 01/02/20 Rx glimepiride 4 mg tablet 4 mg PO BID #180 tabs 04/24/19 01/02/20 Rx lisinopril 10 mg tablet 10 mg PO DAILY #90 tabs 04/24/19 01/02/20 Rx multivitamin 1 tablet PO DAILY 04/24/19 01/02/20 History omeprazole 10 mg capsule,delayed 10 mg PO DAILY 04/24/19 01/02/20 History release potassium chloride 20 mEq 20 meq PO DAILY 04/24/19 01/02/20 History tablet,extended release vitamins A,C,Z-expx-oeeivc 4,296 1 cap PO BID 04/24/19 01/02/20 History mcg-226 mg-90 mg capsule (PreserVision AREDS) linagliptin 5 mg tablet (Tradjenta) 5 mg PO QAM #90 tabs 07/15/19 01/02/20 Rx acetaminophen 650 mg 650 mg PO TID 01/02/20 01/02/20 History tablet,extended release blood sugar diagnostic (Freestyle #10 ea 01/02/20 01/02/20 History InsuLinx Test Strips) empagliflozin 10 mg tablet 10 mg PO DAILY 01/02/20 01/02/20 History metformin 500 mg tablet,extended 1,000 mg PO BID 01/02/20 01/02/20 History release 24 hr metoprolol succinate 25 mg 25 mg PO DAILY #90 tabs 01/02/20 01/02/20 Rx tablet,extended release 24 hr tramadol 50 mg tablet 50 mg PO BID PRN pain #60 tabs 11/26/20 Rx cephalexin 500 mg capsule 500 mg PO Q12H #10 caps 05/04/24 Rx promethazine 25 mg tablet 25 mg PO Q6H PRN nausea and 05/04/24 Rx vomiting #10 tabs simethicone 125 mg capsule 125 mg PO QID abdominal distention 05/04/24 Rx #20 caps alendronate 70 mg tablet 70 mg PO WEEKLY 05/11/24 05/11/24 History aspirin 81 mg tablet,delayed 81 mg PO DAILY 05/11/24 05/11/24 History release (Adult Aspirin Regimen) atorvastatin 40 mg tablet 40 mg PO QPM 05/11/24 05/11/24 History ergocalciferol (vitamin D2) 1,250 50,000 unit PO WEEKLY 05/11/24 05/11/24 History mcg (50,000 unit) capsule furosemide 20 mg tablet 20 mg PO DAILY 05/11/24 05/11/24 History gabapentin 100 mg capsule 100 mg PO TID 05/11/24 05/11/24 History glimepiride 4 mg tablet 4 mg PO BID 05/11/24 05/11/24 History lisinopril 10 mg tablet 10 mg PO DAILY 05/11/24 05/11/24 History metformin 1,000 mg tablet 1,000 mg PO BID 05/11/24 05/11/24 History omeprazole 20 mg capsule,delayed 20 mg PO DAILY 05/11/24 05/11/24 History release potassium chloride 20 mEq 20 meq PO DAILY 05/11/24 05/11/24 History tablet,extended release(part/cryst) tramadol 50 mg tablet 50 mg PO QID PRN pain 05/11/24 05/11/24 History Allergies Allergy/AdvReac Type Severity Reaction Status Date / Time acetaminophen (From [facility] AdvReac Unknown Unknown Verified 05/13/24 10:21 (acetaminophen)) gabapentin AdvReac Unknown Unknown Verified 05/13/24 10:21 meloxicam AdvReac Unknown Unknown Verified 05/13/24 10:21 propoxyphene AdvReac Unknown Unknown Verified 05/13/24 10:21 Vital Signs Vital Signs - 24 hr 05/12/24 15:52 05/12/24 16:00 05/12/24 16:00 Temperature Pulse Rate 75 75 75 Respiratory Rate 18 18 Blood Pressure 97/50 L Pulse Oximetry 100 100 Oxygen Delivery Room Air 05/12/24 17:53 05/12/24 20:00 05/12/24 20:14 Temperature 98 F Pulse Rate 76 88 87 Respiratory Rate 18 Blood Pressure 115/57 L Pulse Oximetry 100 Oxygen Delivery 05/12/24 22:00 05/12/24 22:50 05/12/24 23:37 Temperature 98.2 F Pulse Rate 85 85 102 H Respiratory Rate 16 20 Blood Pressure 108/50 L Pulse Oximetry 100 100 Oxygen Delivery Room Air 05/12/24 23:40 05/13/24 00:00 05/13/24 02:00 Temperature Pulse Rate 102 H 101 H 102 H Respiratory Rate 20 Blood Pressure Pulse Oximetry 100 Oxygen Delivery Room Air 05/13/24 03:27 05/13/24 04:00 05/13/24 04:37 Temperature 98.5 F Pulse Rate 90 109 H 90 Respiratory Rate 18 18 Blood Pressure 110/63 Pulse Oximetry 98 98 Oxygen Delivery Room Air 05/13/24 06:00 05/13/24 07:45 05/13/24 09:53 Temperature 97.4 F L Pulse Rate 102 H 91 Respiratory Rate 22 H Blood Pressure 112/55 L Pulse Oximetry 99 98 Oxygen Delivery Room Air 05/13/24 10:41 05/13/24 10:59 05/13/24 11:59 Temperature 97.4 F L 97.7 F 98.1 F Pulse Rate 105 H 107 H 108 H Respiratory Rate 20 22 H 26 H Blood Pressure 115/66 100/56 L 112/57 L Pulse Oximetry 100 98 100 Oxygen Delivery 05/13/24 12:00 05/13/24 12:59 05/13/24 14:08 Temperature 98.1 F 97.5 F L 98.8 F Pulse Rate 108 H 109 H 107 H Respiratory Rate 26 H 24 H 26 H Blood Pressure 112/57 L 98/60 L 102/56 L Pulse Oximetry 100 97 96 Oxygen Delivery Exam 2 Const: General: ill appearing Nutritional Appearance: overweight O rientation/consciousness: confusion and patient obtunded Other: wakes up to name and gently physical stimuli, does not answer questions appropriately or follow commands. When asked about her name, she recited her address, unable to tell me her sister's name or time/place. HENMT: Head: normocephalic and atraumatic Eyes: General: appearance normal, both eyes and all related structures P upils: Equal, round and reactive pupils present Neck: Neck: normal visual inspection Resp: Effort & Inspection: normal respiratory effort Auscultation: clear to auscultation bilaterally Cardio: Rate: regular rate Rhythm: regular rhythm Peripheral pulses: P eripheral pulses 2+ throughout GI: Inspection: distended GI Palp: Yes Soft to palpation, Yes Tenderness to palpation present (GI) (diffusely tender), No Guarding due to palpation present (GI), Yes No hepatosplenomegaly present and No Rebound tenderness present A uscultation: normal bowel sounds Rectal Exam: deferred and other (rectal tube in place with small amount of liquid black stool in tube) Urinary Catheter: Urinary Catheter: patent and draining Skin: General skin exam: normal color Neuro: General: moves all extremities and other (exam limited due to AMS, does not follow commands) Extrem: General: normal to inspection and no edema Psych: Insight: Limited insight present (Psych) and Poor insight present (Psych) Judgement: Limited judgement present (Psych) and Poor judgement present (Psych) Results Labs 05/13/24 04:46 05/13/24 04:46 Labs: Abnormal lab results 05/12/24 05/12/24 05/12/24 Range/Units 03:50 16:26 19:38 WBC (4.5-10.0) K/mm3 RBC (4.2-5.4) M/mm3 Hgb (12.0-15.0) g/dL Hct (37.0-47.0) % MCHC (32-36) g/dl Immature Gran % (Auto) (0-0.5) % Neut % (Auto) (45.5-73.1) % Lymph % (Auto) (18.3-44.2) % [place] # (Auto) (0.1-0.6) K/mm3 Abs Immat Gran (auto) (0.00-0.031) K/mm3 Absolute Neuts (auto) (1.3-6.7) K/mm3 Absolute Nucleated RBC (0.0-0.012) K/mm3 Sodium (137-145) mmol/L Chloride (98-107) mmol/L Carbon Dioxide (22-30) mmol/L BUN (7-17) mg/dL Creatinine (0.7-1.0) mg/dL Estimated GFR (59 - ) Glucose (65-110) mg/dL POC Capillary Glucose 140 H 172 H (65-105) mg/dl Hemoglobin A1c 6.6 H (<5.7) % Calcium (8.4-10.2) mg/dL Magnesium (1.6-2.3) mg/dL Total Protein (6.3-8.2) g/dL Albumin (3.5-5.1) g/dL Prealbumin 7.7 L (17.6-36.0) mg/dL Stl Occult Blood (IFOB) (N) C. difficile (PCR) (NEGATIVE) Crossmatch 05/13/24 05/13/24 05/13/24 Range/Units 04:46 05:06 05:07 WBC 18.4 H (4.5-10.0) K/mm3 RBC 2.70 L (4.2-5.4) M/mm3 Hgb 7.5 L (12.0-15.0) g/dL Hct 23.5 L (37.0-47.0) % MCHC 31.9 L (32-36) g/dl Immature Gran % (Auto) 1.3 H (0-0.5) % Neut % (Auto) 85.5 H (45.5-73.1) % Lymph % (Auto) 6.6 L (18.3-44.2) % [place] # (Auto) 1.2 H (0.1-0.6) K/mm3 Abs Immat Gran (auto) 0.23 H (0.00-0.031) K/mm3 Absolute Neuts (auto) 15.8 H (1.3-6.7) K/mm3 Absolute Nucleated RBC 0.020 H (0.0-0.012) K/mm3 Sodium 134 L (137-145) mmol/L Chloride 110 H (98-107) mmol/L Carbon Dioxide 13 L (22-30) mmol/L BUN 60 H D (7-17) mg/dL Creatinine 1.16 H (0.7-1.0) mg/dL Estimated GFR 46 L (59 - ) Glucose 270 H (65-110) mg/dL POC Capillary Glucose (65-105) mg/dl Hemoglobin A1c (<5.7) % Calcium 7.0 L (8.4-10.2) mg/dL Magnesium 1.3 L (1.6-2.3) mg/dL Total Protein 4.0 L (6.3-8.2) g/dL Albumin 2.0 L (3.5-5.1) g/dL Prealbumin (17.6-36.0) mg/dL Stl Occult Blood (IFOB) Positive H (N) C. difficile (PCR) Positive A* (NEGATIVE) Crossmatch 05/13/24 05/13/24 05/13/24 Range/Units 06:45 07:27 12:09 WBC (4.5-10.0) K/mm3 RBC (4.2-5.4) M/mm3 Hgb (12.0-15.0) g/dL Hct (37.0-47.0) % MCHC (32-36) g/dl Immature Gran % (Auto) (0-0.5) % Neut % (Auto) (45.5-73.1) % Lymph % (Auto) (18.3-44.2) % [place] # (Auto) (0.1-0.6) K/mm3 Abs Immat Gran (auto) (0.00-0.031) K/mm3 Absolute Neuts (auto) (1.3-6.7) K/mm3 Absolute Nucleated RBC (0.0-0.012) K/mm3 Sodium (137-145) mmol/L Chloride (98-107) mmol/L Carbon Dioxide (22-30) mmol/L BUN (7-17) mg/dL Creatinine (0.7-1.0) mg/dL Estimated GFR (59 - ) Glucose (65-110) mg/dL POC Capillary Glucose 268 H 304 H (65-105) mg/dl Hemoglobin A1c (<5.7) % Calcium (8.4-10.2) mg/dL Magnesium (1.6-2.3) mg/dL Total Protein (6.3-8.2) g/dL Albumin (3.5-5.1) g/dL Prealbumin (17.6-36.0) mg/dL Stl Occult Blood (IFOB) (N) C. difficile (PCR) (NEGATIVE) Crossmatch See Detail Diabetes panel 05/12/24 05/13/24 Range/Units 03:50 04:46 Sodium 134 L (137-145) mmol/L Potassium 3.7 (3.4-5.0) mmol/L Chloride 110 H (98-107) mmol/L Carbon Dioxide 13 L (22-30) mmol/L BUN 60 H D (7-17) mg/dL Creatinine 1.16 H (0.7-1.0) mg/dL Glucose 270 H (65-110) mg/dL Hemoglobin A1c 6.6 H (<5.7) % Calcium 7.0 L (8.4-10.2) mg/dL AST 30 (14-36) U/L ALT 23 (6-35) U/L Alkaline Phosphatase 60 (38-126) U/L Total Protein 4.0 L (6.3-8.2) g/dL Albumin 2.0 L (3.5-5.1) g/dL Calcium panel 05/13/24 Range/Units 04:46 Calcium 7.0 L (8.4-10.2) mg/dL Albumin 2.0 L (3.5-5.1) g/dL Pituitary panel 05/13/24 Range/Units 04:46 Sodium 134 L (137-145) mmol/L Potassium 3.7 (3.4-5.0) mmol/L Chloride 110 H (98-107) mmol/L Carbon Dioxide 13 L (22-30) mmol/L BUN 60 H D (7-17) mg/dL Creatinine 1.16 H (0.7-1.0) mg/dL Glucose 270 H (65-110) mg/dL Calcium 7.0 L (8.4-10.2) mg/dL Adrenal panel 05/13/24 Range/Units 04:46 Sodium 134 L (137-145) mmol/L Potassium 3.7 (3.4-5.0) mmol/L Chloride 110 H (98-107) mmol/L Carbon Dioxide 13 L (22-30) mmol/L BUN 60 H D (7-17) mg/dL Creatinine 1.16 H (0.7-1.0) mg/dL Glucose 270 H (65-110) mg/dL Calcium 7.0 L (8.4-10.2) mg/dL Total Bilirubin 0.3 (0.2-1.3) mg/dL AST 30 (14-36) U/L ALT 23 (6-35) U/L Alkaline Phosphatase 60 (38-126) U/L Total Protein 4.0 L (6.3-8.2) g/dL Albumin 2.0 L (3.5-5.1) g/dL All other labs normal. Imaging Additional studies: ITS Impressions Chest X-Ray 05/11/24 11:38 IMPRESSION: 1. Widening of the superior mediastinum, which may be seen with lipomatosis or a tortuous aorta. Malignancy is not excluded. Chest CT is recommended if this area is not included on the pending cervical spine CT. Head CT 05/11/24 12:06 IMPRESSION: 1. Normal aging brain. Chest/Abdomen/Pelvis CT 05/11/24 12:07 IMPRESSION: 1. Multinodular goiter extending into the mediastinum correlating with the chest radiograph abnormality. 2. Bilateral nonobstructing kidney stones. Cervical Spine CT 05/11/24 12:13 IMPRESSION: 1. No fracture. 2. Severe cervical spondylosis. 3. Multinodular goiter extending into the mediastinum. Hip/Pelvis X-Ray 05/12/24 12:24 Impression: Acute intertrochanteric fracture of the proximal right femur, as detailed above. Advanced degenerative change of the right hip joint. Head CT 05/12/24 13:17 Impression: No intracranial hemorrhage, mass, or acute infarct. Atrophy and chronic white matter changes, as above. Thyroid Ultrasound 05/13/24 07:58 IMPRESSION: 1. Multinodular goiter. The portion of the goiter in the mediastinum seen on CT is not visible by ultrasound. Consider ultrasound-guided fine-needle aspiration of the 19 mm right thyroid nodule.
[2024-05-13 15:09] LABS: Hemoglobin 10.4 g/dL (12.0-15.0)
[2024-05-13 16:14] LABS: Base Excess ABG -8.3 mEq/l (+/-2.0); Fractional Inspired Oxygen 21 %; HCO3 ABG 13.1 mEq/l (22.0-26.0); Oxygen Content ABG 14.7 %vol (16.0-22.0); Oxygen Saturation ABG 97.1 % (95.0-100.0); Oxyhemoglobin 95.6 % THb (90.0-100.0); PO2 ABG 82.3 mmHg (80.0-100.0); PO2 FiO2 Ratio Arterial Blood 3.92 %; Total Hemoglobin 10.9 g/dL (12.0-18.0); pH ABG 7.483 (7.350-7.450)
[2024-05-13 16:16] LABS: Device ROOM AIR; Modified Allen's Test Pass; PCO2 ABG 17.9 mmHg (35.0-45.0); Site Drawn RIGHT RADIAL
[2024-05-13 16:25] LABS: Thyroid Peroxidase Antibodies <1 IU/mL (<9)
[2024-05-13 16:29] LABS: Anion Gap 10 mmol/L (4-12); Blood Urea Nitrogen 67 mg/dL (7-17); Calcium 7.7 mg/dL (8.4-10.2); Carbon Dioxide 13 mmol/L (22-30); Chloride 112 mmol/L (98-107); Estimated CRCL calculation 29 ml/min; Estimated Glomerular Filt Rate 34; Glucose 193 mg/dL (65-110); Potassium 3.9 mmol/L (3.4-5.0); Sodium 135 mmol/L (137-145)
[2024-05-13 16:31] LABS: Glucose Point of Care 171 mg/dl (65-105)
[2024-05-13] MEDS: SODIUM BICARBONATE 8.4% 50 MEQ/50 ML SYRINGE IV PUSH (16:37)
[2024-05-13] MEDS: INSULIN GLARGINE (*BKC) 100 UNITS/ML 8 UNITS SUB-Q (16:43)
[2024-05-13] MEDS: SODIUM CHLORIDE 0.9% IV 500 ML IV CONT (16:44)
[2024-05-13 17:05] LABS: Lactic Acid Reflex 4.2 mmol/L (0.7-2.0)
[2024-05-13 17:46] LABS: Beta-Hydroxybutyrate/Acetoacetate 0.09 mmol/L (0.02-0.27)
[2024-05-13] MEDS: ETOMIDATE 20 MG/10 ML AMPUL IV PUSH (17:50)
[2024-05-13] MEDS: ROCURONIUM BROMIDE 50 MG/5 ML VIAL 100 MG IV PUSH (17:50)
[2024-05-13] MEDS: NOREPINEPHRINE 8 MG/D5W 250 ML 8 MG/250 ML BAG 9.38 MG IV CONT (18:02)
[2024-05-13] MEDS: FENTANYL 2,500MCG/NS250ML(*CRX 2,500 MCG/250 ML BAG IV CONT (18:06)
[2024-05-13] MEDS: fentaNYL CITRATE INJ (*CRX) 100 MCG/2 ML VIAL IV PUSH (18:10)
--- NOTE | 2024-05-13 18:22 | PC.NURSE ---
This patient, Rosa Maria Love, was transferred to [ICU-5] on 05/13/24 at 1710. Personal belongings sent with patient. Report given to [Digna FORTUNE]. Appropriate documentation sent with patient.
--- NOTE | 2024-05-13 18:46 | PC.NURSE ---
174-Dr. Goddard at [facility] to intubate patient and place central line. 1749-Etomidate 20 mg, 100 mg rocuronium given IVP 175-40 mcg epinephrine IVP by Dr. Goddard 1756-30 mcg Epinephrine IVP by Dr. goddard 1801-30 mcg epinephrine IVP by Dr. Goddard 1812-30 mcg epinephrine IVP by Dr. Goddard
--- NOTE | 2024-05-13 18:47 | P.PNAN_ITS ---
Anes - Eval Pre Procedure Procedure: Exploratory laparotomy Date/Time: 05/13/24 18:47 Surgeon: Partha Preop Diagnosis: Free air in abdomen, sepsis Pre Op Diagnosis: acute encephalopathy,dehydration Patient Data Age: 73 Gender: F Height: 1.6 m Weight: 72.8 kg Last Vital Signs Temp 99.3 F 05/13/24 16:00 Pulse 108 H 05/13/24 18:35 Resp 26 H 05/13/24 18:06 BP 79/61 L 05/13/24 18:35 Pulse Ox 94 05/13/24 16:00 O2 Del Method Room Air 05/13/24 09:53 Allergies Allergy/AdvReac Type Severity Reaction Status Date / Time acetaminophen (From [place]ap AdvReac Unknown Unknown Verified 05/13/24 10:21 (acetaminophen)) gabapentin AdvReac Unknown Unknown Verified 05/13/24 10:21 meloxicam AdvReac Unknown Unknown Verified 05/13/24 10:21 propoxyphene AdvReac Unknown Unknown Verified 05/13/24 10:21 Home Medications ?Medication ?Instructions ?Recorded ?Confirmed ?Type aspirin 81 mg tablet,delayed 81 mg PO DAILY 04/24/19 01/02/20 History release (Adult Aspirin Regimen) atorvastatin 40 mg tablet See Rx Instructions .Route .COMPLEX 04/24/19 01/02/20 History flu vacc [id number](65yr up)PF 180 ml IM 04/24/19 01/02/20 History mcg/0.5 mL intramuscular syringe furosemide 20 mg tablet 20 mg PO QAM PRN edema #90 tabs 04/24/19 01/02/20 Rx glimepiride 4 mg tablet 4 mg PO BID #180 tabs 04/24/19 01/02/20 Rx lisinopril 10 mg tablet 10 mg PO DAILY #90 tabs 04/24/19 01/02/20 Rx multivitamin 1 tablet PO DAILY 04/24/19 01/02/20 History omeprazole 10 mg capsule,delayed 10 mg PO DAILY 04/24/19 01/02/20 History release potassium chloride 20 mEq 20 meq PO DAILY 04/24/19 01/02/20 History tablet,extended release vitamins A,C,L-mqmn-gtadvy 4,296 1 cap PO BID 04/24/19 01/02/20 History mcg-226 mg-90 mg capsule (PreserVision AREDS) linagliptin 5 mg tablet (Tradjenta) 5 mg PO QAM #90 tabs 07/15/19 01/02/20 Rx acetaminophen 650 mg 650 mg PO TID 01/02/20 01/02/20 History tablet,extended release blood sugar diagnostic (Freestyle #10 ea 01/02/20 01/02/20 History InsuLinx Test Strips) empagliflozin 10 mg tablet 10 mg PO DAILY 01/02/20 01/02/20 History metformin 500 mg tablet,extended 1,000 mg PO BID 01/02/20 01/02/20 History release 24 hr metoprolol succinate 25 mg 25 mg PO DAILY #90 tabs 01/02/20 01/02/20 Rx tablet,extended release 24 hr tramadol 50 mg tablet 50 mg PO BID PRN pain #60 tabs 11/26/20 Rx cephalexin 500 mg capsule 500 mg PO Q12H #10 caps 05/04/24 Rx promethazine 25 mg tablet 25 mg PO Q6H PRN nausea and 05/04/24 Rx vomiting #10 tabs simethicone 125 mg capsule 125 mg PO QID abdominal distention 05/04/24 Rx #20 caps alendronate 70 mg tablet 70 mg PO WEEKLY 05/11/24 05/11/24 History aspirin 81 mg tablet,delayed 81 mg PO DAILY 05/11/24 05/11/24 History release (Adult Aspirin Regimen) atorvastatin 40 mg tablet 40 mg PO QPM 05/11/24 05/11/24 History ergocalciferol (vitamin D2) 1,250 50,000 unit PO WEEKLY 05/11/24 05/11/24 History mcg (50,000 unit) capsule furosemide 20 mg tablet 20 mg PO DAILY 05/11/24 05/11/24 History gabapentin 100 mg capsule 100 mg PO TID 05/11/24 05/11/24 History glimepiride 4 mg tablet 4 mg PO BID 05/11/24 05/11/24 History lisinopril 10 mg tablet 10 mg PO DAILY 05/11/24 05/11/24 History metformin 1,000 mg tablet 1,000 mg PO BID 05/11/24 05/11/24 History omeprazole 20 mg capsule,delayed 20 mg PO DAILY 05/11/24 05/11/24 History release potassium chloride 20 mEq 20 meq PO DAILY 05/11/24 05/11/24 History tablet,extended release(part/cryst) tramadol 50 mg tablet 50 mg PO QID PRN pain 05/11/24 05/11/24 History Laboratory Tests 05/11/24 05/12/24 05/13/24 15:46 19:38 04:46 WBC 18.4 H K/mm3 (4.5-10.0) RBC 2.70 L M/mm3 (4.2-5.4) Hgb 7.5 L g/dL (12.0-15.0) Hct 23.5 L % (37.0-47.0) MCV 87.0 fl (80-100) MCH 27.8 pg (26-34) MCHC 31.9 L g/dl (32-36) RDW 14.2 % (11.5-14.5) Plt Count 311 k/mm3 (150-375) MPV 10.0 fl (7.4-10.4) Immature Gran % (Auto) 1.3 H % (0-0.5) Neut % (Auto) 85.5 H % (45.5-73.1) Lymph % (Auto) 6.6 L % (18.3-44.2) [place] % (Auto) 6.4 % (2.6-8.5) Eos % (Auto) 0.0 % (0-4.4) Baso % (Auto) 0.2 % (0.2-1.2) Lymph # (Auto) 1.22 K/mm3 (0.9-3.2) [place] # (Auto) 1.2 H K/mm3 (0.1-0.6) Eos # (Auto) 0.0 K/mm3 (0-0.3) Baso # (Auto) 0.0 K/mm3 (0.0-0.1) Abs Immat Gran (auto) 0.23 H K/mm3 (0.00-0.031) Absolute Neuts (auto) 15.8 H K/mm3 (1.3-6.7) Absolute Nucleated RBC 0.020 H K/mm3 (0.0-0.012) Nucleated RBC % 0.1 % (0.0-0.2) Puncture Site ABG pH ABG pCO2 ABG pO2 ABG PO2/FiO2 Ratio ABG HCO3 ABG O2 Saturation ABG O2 Content ABG Base Excess A-a Gradient Oxyhemoglobin Total Hemoglobin O2 Delivery Device O2 Liters/Min FiO2 Sodium 134 L mmol/L (137-145) Potassium 3.7 mmol/L (3.4-5.0) Chloride 110 H mmol/L (98-107) Carbon Dioxide 13 L mmol/L (22-30) Anion Gap 11 mmol/L (4-12) BUN 60 H D mg/dL (7-17) Creatinine 1.16 H mg/dL (0.7-1.0) Estim Creat Clear Calc 36 ml/min Estimated GFR 46 L (59 - ) Glucose 270 H mg/dL (65-110) POC Capillary Glucose 172 H mg/dl (65-105) Lactic Acid Calcium 7.0 L mg/dL (8.4-10.2) Magnesium 1.3 L mg/dL (1.6-2.3) Total Bilirubin 0.3 mg/dL (0.2-1.3) AST 30 U/L (14-36) ALT 23 U/L (6-35) Alkaline Phosphatase 60 U/L (38-126) Total Protein 4.0 L g/dL (6.3-8.2) Albumin 2.0 L g/dL (3.5-5.1) Beta-Hydroxybutyrate/Acetoacetate Stl Occult Blood (IFOB) Thyroid Peroxidase Ab <1 IU/mL (<9) C. difficile (PCR) Blood Type Antibody Screen Crossmatch 05/13/24 05/13/24 05/13/24 05:06 05:07 06:45 WBC RBC Hgb Hct MCV MCH MCHC RDW Plt Count MPV Immature Gran % (Auto) Neut % (Auto) Lymph % (Auto) [place] % (Auto) Eos % (Auto) Baso % (Auto) Lymph # (Auto) [place] # (Auto) Eos # (Auto) Baso # (Auto) Abs Immat Gran (auto) Absolute Neuts (auto) Absolute Nucleated RBC Nucleated RBC % Puncture Site ABG pH ABG pCO2 ABG pO2 ABG PO2/FiO2 Ratio ABG HCO3 ABG O2 Saturation ABG O2 Content ABG Base Excess A-a Gradient Oxyhemoglobin Total Hemoglobin O2 Delivery Device O2 Liters/Min FiO2 Sodium Potassium Chloride Carbon Dioxide Anion Gap BUN Creatinine Estim Creat Clear Calc Estimated GFR Glucose POC Capillary Glucose Lactic Acid Calcium Magnesium Total Bilirubin AST ALT Alkaline Phosphatase Total Protein Albumin Beta-Hydroxybutyrate/Acetoacetate Stl Occult Blood (IFOB) Positive H (N) Thyroid Peroxidase Ab C. difficile (PCR) Positive A* (NEGATIVE) Blood Type O Positive Antibody Screen Negative Crossmatch See Detail 05/13/24 05/13/24 05/13/24 07:27 12:09 15:04 WBC RBC Hgb 10.4 L g/dL (12.0-15.0) Hct 31.0 L % (37.0-47.0) MCV MCH MCHC RDW Plt Count MPV Immature Gran % (Auto) Neut % (Auto) Lymph % (Auto) [place] % (Auto) Eos % (Auto) Baso % (Auto) Lymph # (Auto) [place] # (Auto) Eos # (Auto) Baso # (Auto) Abs Immat Gran (auto) Absolute Neuts (auto) Absolute Nucleated RBC Nucleated RBC % Puncture Site ABG pH ABG pCO2 ABG pO2 ABG PO2/FiO2 Ratio ABG HCO3 ABG O2 Saturation ABG O2 Content ABG Base Excess A-a Gradient Oxyhemoglobin Total Hemoglobin O2 Delivery Device O2 Liters/Min FiO2 Sodium 135 L mmol/L (137-145) Potassium 3.9 mmol/L (3.4-5.0) Chloride 112 H mmol/L (98-107) Carbon Dioxide 13 L mmol/L (22-30) Anion Gap 10 mmol/L (4-12) BUN 67 H mg/dL (7-17) Creatinine 1.49 H mg/dL (0.7-1.0) Estim Creat Clear Calc 29 ml/min Estimated GFR 34 L (59 - ) Glucose 193 H mg/dL (65-110) POC Capillary Glucose 268 H mg/dl 304 H mg/dl (65-105) (65-105) Lactic Acid Calcium 7.7 L mg/dL (8.4-10.2) Magnesium 2.0 mg/dL (1.6-2.3) Total Bilirubin AST ALT Alkaline Phosphatase Total Protein Albumin Beta-Hydroxybutyrate/Acetoacetate Stl Occult Blood (IFOB) Thyroid Peroxidase Ab C. difficile (PCR) Blood Type Antibody Screen Crossmatch 05/13/24 05/13/24 05/13/24 16:06 16:15 16:33 WBC RBC Hgb Hct MCV MCH MCHC RDW Plt Count MPV Immature Gran % (Auto) Neut % (Auto) Lymph % (Auto) [place] % (Auto) Eos % (Auto) Baso % (Auto) Lymph # (Auto) [place] # (Auto) Eos # (Auto) Baso # (Auto) Abs Immat Gran (auto) Absolute Neuts (auto) Absolute Nucleated RBC Nucleated RBC % Puncture Site Right radial ABG pH 7.483 H (7.350-7.450) ABG pCO2 17.9 L* mmHg (35.0-45.0) ABG pO2 82.3 mmHg (80.0-100.0) ABG PO2/FiO2 Ratio 3.92 % ABG HCO3 13.1 L mEq/l (22.0-26.0) ABG O2 Saturation 97.1 % (95.0-100.0) ABG O2 Content 14.7 L %vol (16.0-22.0) ABG Base Excess -8.3 mEq/l (+/-2.0) A-a Gradient 46.0 mmHg Oxyhemoglobin 95.6 % THb (90.0-100.0) Total Hemoglobin 10.9 L g/dL (12.0-18.0) O2 Delivery Device Room air O2 Liters/Min Not Reportable FiO2 21 % Sodium Potassium Chloride Carbon Dioxide Anion Gap BUN Creatinine Estim Creat Clear Calc Estimated GFR Glucose POC Capillary Glucose 171 H mg/dl (65-105) Lactic Acid 4.2 H* mmol/L (0.7-2.0) Calcium Magnesium Total Bilirubin AST ALT Alkaline Phosphatase Total Protein Albumin Beta-Hydroxybutyrate/Acetoacetate 0.09 mmol/L (0.02-0.27) Stl Occult Blood (IFOB) Thyroid Peroxidase Ab C. difficile (PCR) Blood Type Antibody Screen Crossmatch Patient hx anesthesia problems: none Family hx anesthesia problems: none Results Review: All pre-operative results and documents have been reviewed as part of the pre- operative evaluation. [facility] Past Medical History Medical History (Updated 05/13/24 @ 18:49 by Nick Handy Jr., COMPUTER FORWARDING SYSTEM MARKUP CLERK) Sepsis C. difficile enteritis GI bleed Type 2 diabetes mellitus with other circulatory complications (~1973) Goiter Rhabdomyolysis ABLA (acute blood loss anemia) Pedal edema Osteoarthritis Essential (primary) hypertension Dyslipidemia Degenerative arthritis of knee, bilateral BMI 36.0-36.9,adult Low back pain with right-sided sciatica Class 2 severe obesity with serious comorbidity and body mass index (BMI) of 36.0 to 36.9 in adult Chronic gastroesophageal reflux disease (~2017) PUD (peptic ulcer disease) (~2017) d/t meloxicam: NO GI bleed; h/o hospitalization x 3 d FH: heart attack (~2002) Father @ 83: h/o HTN, hyperlipidemia FH: ovarian cancer in first degree relative (~2002) Mother dx'd @ 65-- @ 67: surgical complications Diabetes Surgical History Surgical History History of endometrial ablation 1994 History of lumpectomy of both breasts 1992 - right 1994 - left H/O excision of ganglion cyst 1973 - left wrist History of umbilical hernia repair 2003 History of cholecystectomy 2004 H/O lithotripsy (~2006) 2007 Surgical history unknown Family History Family History Mother Ovarian cancer Dementia Hypertension Diabetes mellitus Hyperlipidemia Father Myocardial infarct Hypertension Hyperlipidemia Broken heart syndrome Sibling Diabetes mellitus Hypertension Hyperlipidemia Sibling Glioblastoma Hypertension Hyperlipidemia Father , @ 83 (2002) Acute myocardial infarction Heart disease Hypertension Mother Epithelial ovarian cancer, FIGO stage IIIB Diabetes mellitus Sibling Brain malignant neoplasm Social History Social History Smoking status: Never smoker Second hand tobacco smoke exposure: No Alcohol intake: never Substance use: never Substance use type: does not use Do You Feel Safe in your Home?: Yes Lack of Transportation: No Lack of Food: Never True Current Housing: I Have Housing Concerned About Future Housing: No Difficulty Paying Gas/Electric Bills: No Difficulty Paying for Meds: No Currently Unemployed: No Education: Master's Degree or Higher Difficulty w/ Childcare or Family Care: No Living arrangements: alone Occupation/Education: retired Additional occupation/education comments: 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
[2024-05-13] MEDS: PANTOPRAZOLE SODIUM IV 80 MG in SODIUM CHLORIDE 0.9% IV 500 ML 50 MG IV CONT (18:52)
[2024-05-13] MEDS: LACTATED RINGERS 1,000 ML 999 ML IV CONT (18:56)
[2024-05-13] MEDS: SODIUM BICARBONATE 8.4% 50 MEQ/50 ML SYRINGE 100 MEQ IV PUSH (18:57)
[2024-05-13] MEDS: HYDROCORTISONE SODIUM SUCCINATE 100 MG/2 ML VIAL IV PUSH (18:59)
[2024-05-13] MEDS: metroNIDAZOLE 500 MG/ISO 100ML 500 MG/100 ML BAG 100 MG IVPB (19:00)
[2024-05-13] MEDS: CEFEPIME 2 GM/NS 50 ML 2 GM/50 ML BAG IVPB (19:02)
--- NOTE | 2024-05-13 19:12 | WPDHPUPDATE1 ---
History and Physical Update Update Date/Time: 05/13/24 19:12 History and Physical has been reviewed, including an updated exam of the patient. There are NO changes in the patient's condition. Risks, benefits, and alternatives have been discussed and questions answered. Patient agrees to proceed with procedure. called to see pt re: worsening exam, labs, imaging. Pt transferred to ICU and intubated. Abd - S, mod dist, diffuse TTP, CT c free fluid and air. OR for emergent ex lap, possible bowel resection, possible ostomy.
[2024-05-13] MEDS: VASOPRESSIN INJ 100 UNITS in DEXTROSE 5% 95 ML IV CONT (19:13)
[2024-05-13] MEDS: CALCIUM GLUC 2,000 MG/NS 100ML 2,000 MG/100 ML BAG 100 MG IVPB (19:14)
--- NOTE | 2024-05-13 19:20 | P.PCNBEDED_ITS ---
Procedures Central Line Placement Left SC: Central Line Date: 05/13/24 Central Line Time: 18:25 Performed Emergently - Given emergent patient condition, temporal constraints may have precluded informed consent.: Yes Consent: Emergent consent, unable to speak to family or caregivers Time Out Performed: Yes Patient Position: supine Patient placed on monitor/pulse ox: Yes Provider Prep: mask, sterile gown, sterile gloves, Max. sterile barrier precautions, cap and hand hygiene with conventional soap/water or alcohol based hand rub Central line prep: 2% Chlorhexidine scrub Sterile US Technique with sterile gel/sterile probe covers: Yes Central line lumen inserted: triple [place] Citizen: 9 Length (cm): 16 Depth of Insertion (cm): 16 Post Procedure: sutured in place, good blood return, all ports aspirated, flushed, capped, transparent dressing, antimicrobial product and aseptic technique maintained throughout procedure Post procedure x-ray: tip of catheter in good position and no pneumothorax seen Patient tolerated procedure: well and no complications Complications: none Intubation Intubation Date: 05/13/24 Intubation Time: 18:00 Consent: Emergent, unable to obtain consent, patient not mentating appropriately, not protecting airway. A pre-procedural Time-Out was completed immediately before starting the procedure and confirmed: Patient Identification, Site, Procedure, Patient Position and the Availability of Requisite Equipment: Yes Sedative: etomidate Mg given: 20 Paralytic: rocuronium Mg given: 100 Laryngoscope: fiber optic video scope ET tube size: 7.5 Tube secured depth (cm): 23 Tube secured location: lips Tube placement confirmation: visualized tube passing through cords, equal breath sounds bilaterally, no breath sounds over epigastrium and confirmation by capnometry Patient tolerated procedure: well Intubation complications: hypotension Other Procedures Procedure 1: Other Procedure: Critical care time: 45 minutes exclusive of the separately billed procedures above Narrative: I was called to patient's bedside in the ICU as patient was decompensated, tachypneic in the 50s, altered, not able to answer questions, agitated and pulling at support devices, not protecting her airway. Patient apparently developed a perforation in the abdomen with free fluid and air, massive distension, hemodynamic instability ensued. Medical resuscitation underway, patient required emergent endotracheal intubation, blood pressure 145/112, tachycardic in the 140s, tachypneic in the 50s. Patient was sedated with etomidate and paralyzed with rocuronium and 1st pass success of the 7.5 endotracheal tube secured at 23 cm at the lip. Patient developed post intubat ion hypotension and had systolics in the 60s to 70s range. Post dose epinephrine was utilized for a total of 100 mcg with improvement transiently into the 100 systolic range. Norepinephrine initiated and rapidly up titrated to 15 micrograms/minute. Patient stabilized and had improvement her blood pressure in the 110-140 range. Fentanyl push of 100 mcg and fentanyl drip in suited for sedation post intubation. Procedural chest x-ray after intubation confirmed endotracheal intubation with appropriate positioning, chest x-ray interpreted by myself after central line placement shows appropriate positioning of the central venous catheter just above the SVC. No apparent pneumothorax or complication. NG tube had multiple attempts at insertion even with different sizes and techniques with direct and video laryngoscopy without any successful placement likely secondary to patient's distorted anatomy and gastric distension. General surgery and anesthesia made aware of the patient's need to go the operating room for intervention. Anesthesia at bedside and spoke to family members regarding patient's clinical exam, prognosis and need for operative intervention. Patient has since stabilized, remains with good blood pressure on norepinephrine, adequately sedated. Attending hospitalist at bedside made aware of interventions here in the ICU and care transitioned back to the attending hospitalist Dr. Bee and the ICU team.
[2024-05-13 19:50] LABS: Alveolar/Arterial O2 Gradient 186.7 mmHg; Base Excess ABG -2.4 mEq/l (+/-2.0); Carboxyhemoglobin 0.3 % THb (0-2.0); Fractional Inspired Oxygen 50 %; HCO3 ABG 19.4 mEq/l (22.0-26.0); Methemoglobin ABG 0.2 %THb (0-1.5); Oxygen Content ABG 14.1 %vol (16.0-22.0); Oxygen Saturation ABG 99.1 % (95.0-100.0); Oxyhemoglobin 98.1 % THb (90.0-100.0); PCO2 ABG 24.3 mmHg (35.0-45.0); PO2 ABG 142.5 mmHg (80.0-100.0); PO2 FiO2 Ratio Arterial Blood 2.85 %; Reduced Hemoglobin 1.4 %THb (0-5.0)
[2024-05-13 19:50] LABS: Reflex Lactic Acid Yes or No Add Lactic
[2024-05-13 20:24] LABS: Arterial Blood Gas Ventilator rate 24 /MIN; Device VENTILATOR; Modified Allen's Test Pass; Site Drawn RIGHT RADIAL
[2024-05-13 20:25] LABS: Arterial Blood Gas PEEP 5 cmH2O; Arterial Blood Gas Tidal Volume 400 ml; Arterial Blood Gas Vent Mode CMV
[2024-05-13 20:37] LABS: Base Excess ABG -7.7 mEq/l (+/-2.0); HCO3 ABG 16.2 mEq/l (22.0-26.0); Oxygen Saturation ABG 99.5 % (95.0-100.0); PCO2 ABG 26.9 mmHg (35.0-45.0); PO2 ABG 222.5 mmHg (80.0-100.0); pH ABG 7.397 (7.350-7.450)
[2024-05-13 20:38] LABS: Carboxyhemoglobin 0.8 % THb (0-2.0); Methemoglobin ABG 0.2 %THb (0-1.5); Oxyhemoglobin 98.4 % THb (90.0-100.0); Total Hemoglobin 7.8 g/dL (12.0-18.0)
[2024-05-13 20:39] LABS: Arterial Blood Gas PEEP 5 cmH2O; Arterial Blood Gas Tidal Volume 400 ml; Arterial Blood Gas Vent Mode CMV; Arterial Blood Gas Ventilator rate 10 /MIN; Device VENTILATOR; Fractional Inspired Oxygen 100 %; Reduced Hemoglobin 0.6 %THb (0-5.0)
--- NOTE | 2024-05-13 22:03 | W.PM.PROC2 ---
Procedure Note - Detailed Date of Procedure 05/13/24 Pre-op Diagnosis Severe septic shock, perforated viscus Post-op Diagnosis Other ( multiple perforations in the proximal jejunum and distal duodenum) Procedure Performed Exploratory laparotomy, mobilization of the distal duodenum, resection of perforation and distal duodenum and jejunum Surgeon Jaycee Chavis MD Anesthesia General Indications 73-year-old female with multiple medical issues presenting with sepsis secondary to perforated viscus Findings multiple perforations in the distal duodenum, proximal jejunum Description of Procedure The patient was taken to the operating room and placed in the supine position. After adequate induction of general anesthesia, the patient was prepped and draped in the normal sterile fashion. A time-out was then done to verify the patient's identity, as well as the procedure being performed. Please note that the patient had severe septic shock and was on maximal Levophed as well as being intubated in the ICU prior to surgery. A upper midline incision was made to gain access into the peritoneal cavity. Immediately of free intraperitoneal air was noted. There was also noted to be a copious amount of bile in the abdominal cavity. This was suctioned out. Upon examining the abdomen, there was noted to be extensive bile in the upper abdomen. The stomach was examined and noted to be unremarkable. Upon examining the small intestine, there was noted to be a large perforation at the duodenojejunal flexure. There was also another perforation approximately 5 cm distal in the proximal jejunum. The larger hole at the flexure measured approximately 5 cm and was noted to have an extensive loss of tissue. The distal hole measured approximately 3 cm. Given the amount of spillage, I transected the proximal jejunum distal to these 2 perforations with a 55 JAVIER stapler. I then examined the rest of the small intestine distally and it was noted to be largely unremarkable. I then began freeing up the distal duodenum. This perforation in the flexure did extend into the distal duodenum. Upon entering the retroperitoneum, there was noted to be bile staining indicating perforation in the duodenum. I began by freeing up the 4th and 3rd portion of the duodenum. Upon freeing this area up, there was noted to be an additional perforation in the duodenum. This area measured approximately 1 cm and was separate from the perforation at the flexure. At this point, the patient also was becoming more unstable and requiring more pressor support. Given these findings, I went to speak to the family regarding the findings in the operating room. After discussion with the family, the decision was made to terminate the surgery and bring the patient back to the ICU for comfort care. I did resect the areas of the perforation that had already been dissected out and this will be sent to pathology for further review. The abdomen was then closed with 0 looped PDS suture and skin lor. The patient will be transferred to the ICU in critical condition. Estimated Blood Loss 50 Pathology Yes Complications No immediate complications Condition Critical Disposition ICU [facility] Billing Surgery - Charge Forward: Surgery Billing
[2024-05-13] MEDS: EPINEPHrine INJ 4 MG in DEXTROSE 5% IN WATER 250 ML 3.81 MG IV CONT (22:05)
--- NOTE | 2024-05-13 22:21 | PC.NURSE ---
Patricia at [facility] notified, reference # [id number]
[2024-05-13 22:39] LABS: Alveolar/Arterial O2 Gradient 390.8 mmHg; Base Excess ABG -8.3 mEq/l (+/-2.0); Carboxyhemoglobin 0.6 % THb (0-2.0); Fractional Inspired Oxygen 100 %; HCO3 ABG 17.9 mEq/l (22.0-26.0); Methemoglobin ABG 0.1 %THb (0-1.5); Oxygen Content ABG 12.7 %vol (16.0-22.0); Oxygen Saturation ABG 99.6 % (95.0-100.0); Oxyhemoglobin 98.9 % THb (90.0-100.0); PCO2 ABG 39.6 mmHg (35.0-45.0); PO2 ABG 282.6 mmHg (80.0-100.0); PO2 FiO2 Ratio Arterial Blood 2.83 %; Reduced Hemoglobin 0.4 %THb (0-5.0); Total Hemoglobin 8.6 g/dL (12.0-18.0)
[2024-05-13 22:40] LABS: Arterial Blood Gas Ventilator rate 10 /MIN; Device VENTILATOR; Site Drawn ARTLINE; pH ABG 7.273 (7.350-7.450)
[2024-05-13 22:41] LABS: Arterial Blood Gas PEEP 5 cmH2O; Arterial Blood Gas Tidal Volume 400 ml; Arterial Blood Gas Vent Mode CMV
--- NOTE | 2024-05-13 22:54 | PC.NURSE ---
2239: Patient's family request a member of clergy to read patient her last rights. 2240: Message left for [facility] Jake livingston. 2242: Call place to [facility] per family request as patient is a member there. Family instructed RN that any green lumber grader would be okay. 2245: RN made contact with Father Manjinder Lloyd from [facility] in [place] whom stated he was on his way.
--- NOTE | 2024-05-13 23:05 | PC.NURSE ---
1947: Patient transferred to surgery via bed with RT and Robbie RN.
[2024-05-13] MEDS: GLYCOPYRROLATE INJ (*SP) 0.2 MG/ML VIAL IV PUSH (23:37)
[2024-05-13] MEDS: LORazepam INJ (*CRX) 2 MG/ML VIAL IV PUSH (23:38)
[2024-05-13] MEDS: MORPHINE SULFATE INJ (*CRX) 10 MG/ML AMP 5 MG IV PUSH (23:38)
[2024-05-13] MEDS: CENTRAL LINE FLUSH 10 ML IV PUSH (23:45)
[2024-05-13] MEDS: ATROPINE SULFATE 1% OPHTH SOLN 5 ML BOTTLE SUBLINGUAL (23:45)
--- NOTE | 2024-05-14 00:05 | PC.NURSE ---
2154: Report received from OR. 2200: Code status discussed with family. Patient made DNR. 2205: Patient arrival to the floor. Vasopressin running at 0.06 units per/min. Sodium Bicarb paused. 2235: Family escorted to patient room. Decision to make patient comfort care made. 2243: Molly Martinez NP notified.
--- NOTE | 2024-05-14 00:15 | PC.NURSE ---
Xander Parham coronor notified of patient passing. Xander Parham states okay to release body to Home but let director of compliance know they will take ownership of the Certificate.
--- NOTE | 2024-05-14 00:25 | PC.NURSE ---
MTS notified of patient passing. Will call back if patient is candidate or not. Spoke with Jessy at [facility].
--- NOTE | 2024-05-14 00:38 | PC.NURSE ---
Notified Wiley of [facility] of patient passing. Information given regarding next of kin. Also notified regarding MTS and ownership of certificate to go to machine biller, Xander Parham.
--- NOTE | 2024-05-14 00:50 | PC.NURSE ---
Diana from [facility] called back, patient is not a candidate for donation.
--- NOTE | 2024-05-14 00:51 | PC.NURSE ---
Radhika Henderson notified patient is not a candidate of donation and able to vegetable picker at any time. No further questions. All information relayed.
--- NOTE | 2024-05-14 01:04 | PC.NURSE ---
Melina Lambert yard supervisor cotton gin had been notified of patient passing as well as Valentina Juarez Provider of patient passing.
--- NOTE | 2024-05-14 18:04 | PM.DDS ---
Discharge Summary Date and Time Date of : 05/14/24 Time of : 00:02 Provider Pronounced By: 2 RNs Name of First RN That Pronounced: Robbie White RN Name of Second RN That Pronounced: Monroe Wong RN Probable Cause of Probable Cause of : Multiple perforation in distal duodenum proximal jejunum GI bleed Summary Hospital Course: This is a 73-year-old female who was brought in with altered mental status when she was found covered in stool at her house by EMS. Initial workup revealed negative trauma workup. Chest CT abdomen pelvis were unremarkable. However subsequent hospital stay was complicated with fall sustaining a right hip fracture. While being evaluated by Orthopedics for surgery she started having GI bleed with melena with drop in hemoglobin for which she was transfused. Quickly this progressed to worsening abdominal pain and respiratory failure/distress needing intubation. Stat CT abdomen revealed free air in abdomen suggesting bowel perforation. General surgery was consulted and was taken to the surgery however exploratory laparotomy revealed multiple perforations in the proximal jejunum and distal duodenum. Patient continued to decline and became on stable during this surgery requiring more pressor support. This led to discussion with the family with regard to patient's critical condition and hence decision was made to terminate the surgery and patient was placed on comfort care. Patient swiftly following that. Additional Data Confirmation of as documented by pronouncing clinician: Pupillary Reflex, Palpable Pulses, Response to Stimuli, Heart Tones and Breath Sounds Name of Provider Notified: Valentina Juarez Time Provider Notified: 00:20 Provider Requests Autopsy: No Family Requests Autopsy: No Driver'S License Reviewing Officer Notified: Yes Date [facility] Notified of : 05/14/24 Time [facility] Notified of : 00:25
--- NOTE | 2024-05-15 06:18 | WPDCDIQUERY2 ---
CDI Query Clarification Request Severe septic shock has been documented by a provider but not listed on summary or any other provider notes. Please clarify if Septic shock has been ruled in or ruled out. The medical chart reflects the following: Pre-op Diagnosis Severe septic shock, perforated viscus Intubated 05/13 prior to surgery Abnormal ABG 05/13 tachycardic, hypotensive, febrile 05/13 WBC 18.4 10 Lactic acid 4.2 IV abx
== END 2024-05-14 01:11 | disposition expired | DRG 853 ==
LOC: ANHED 11:22 → ANHIMU 18:36 → ANHICU 05-13 17:12
PROVIDERS: Anesthesiology; Internal Medicine; Nurse Practitioner Gerontology; Orthopaedic Surgery; Surgery; Admitting Provider Internal Medicine; Emergency Provider General Practice; PCP Internal Medicine; Visit Provider Internal Medicine
PROC: 0DB90ZZ Excision of Duodenum, Open Approach (ICD-10-PCS; CPT 49000; principal; 2024-05-13 20:00)
DX: A41.9 Sepsis, unspecified organism (principal); E43 Unspecified severe protein-calorie malnutrition; S72.141A Displaced intertrochanteric fracture of right femur, initial encounter for closed fracture; K26.5 Chronic or unspecified duodenal ulcer with perforation; R65.21 Severe sepsis with septic shock; J96.90 Respiratory failure, unspecified, unspecified whether with hypoxia or hypercapnia; G93.40 Encephalopathy, unspecified; A04.72 Enterocolitis due to Clostridium difficile, not specified as recurrent; M62.82 Rhabdomyolysis; D62 Acute posthemorrhagic anemia; K92.1 Melena; E86.0 Dehydration; W19.XXXA Unspecified fall, initial encounter; D72.829 Elevated white blood cell count, unspecified; D64.9 Anemia, unspecified; E11.59 Type 2 diabetes mellitus with other circulatory complications; E04.2 Nontoxic multinodular goiter; E11.9 Type 2 diabetes mellitus without complications; E83.42 Hypomagnesemia; F42.3 Hoarding disorder; K21.9 Gastro-esophageal reflux disease without esophagitis; L53.9 Erythematous condition, unspecified; M16.11 Unilateral primary osteoarthritis, right hip; M47.812 Spondylosis without myelopathy or radiculopathy, cervical region; M47.816 Spondylosis without myelopathy or radiculopathy, lumbar region; M81.0 Age-related osteoporosis without current pathological fracture; N20.0 Calculus of kidney; Z90.49 Acquired absence of other specified parts of digestive tract; Z68.28 Body mass index [BMI] 28.0-28.9, adult; Z20.822 Contact with and (suspected) exposure to COVID-19; Z79.84 Long term (current) use of oral hypoglycemic drugs
CPT/HCPCS: 31500; 36415; 36430; 36600; 70450; 71045; 71250; 72125; 73521; 74176; 76536; 80048; 80053; 80307; 81001; 82010; 82077; 82140; 82274; 82375; 82550; 82805; 82948; 83036; 83050; 83605; 83690; 83735; 84134; 84439; 84443; 84481; 84484; 85014; 85018; 85025; 85610; 85730; 86376; 86850; 86900; 86901; 86923; 87493; 87636; 88307; 93005; 94002; 96361; 96365; 96375; 97165; 99285; A9270; C1751; G0378; J0171; J0613; J0692; J1596; J1650; J1720; J1815; J1836; J2060; J2270; J2371; J2405; J2470; J3010; J3475; J7030; J7040; J7050; J7060; J7120; P9016